=== PATIENT | female | born 1935 | race Caucasian/White ===

== ENCOUNTER 2022-06-29 09:12 | Outpatient (CLI) | payer MEDICARE, BC, SELFPAY ==
[2022-06-29 21:07] LABS: Alanine Aminotransferase 16 U/L (6-35); Albumin Level 4.1 g/dL (3.5-5.1); Alkaline Phosphatase 65 U/L (38-126); Anion Gap 8 mmol/L (8-16); Aspartate Amino Transferase 24 U/L (14-36); Bilirubin,Total 0.6 mg/dL (0.2-1.3); Blood Urea Nitrogen 22 mg/dL (7-17); Calcium 9.8 mg/dL (8.4-10.2); Carbon Dioxide 31 mmol/L (22-30); Chloride 94 mmol/L (98-107); Cholesterol 147 mg/dL (0-200); Estimated Glomerular Filt Rate 53; Glucose 156 mg/dL (65-110); HDL Direct 82 mg/dL; Sodium 133 mmol/L (137-145); Triglycerides 52 mg/dL (<150)
[2022-06-29 21:18] LABS: LDL Cholesterol Direct 49 mg/dL
[2022-06-29 21:50] LABS: Hemoglobin A1C 7.2 % (<5.7)
== END 2022-06-29 09:13 | disposition home or self-care (01) ==
PROVIDERS: PCP Family Medicine; Visit Provider Family Medicine
DX: Z13.220 Encounter for screening for lipoid disorders (principal); E11.9 Type 2 diabetes mellitus without complications; I10 Essential (primary) hypertension
CPT/HCPCS: 36415; 80053; 80061; 83036

== ENCOUNTER → 2023-01-24 11:08 | Outpatient (CLI) | payer MEDICARE, BC, SELFPAY ==
--- NOTE | ~2023-01-24 | XR_ITS ---
Cervical Spine: AP, lateral, open-mouth views Clinical History: Pain Findings: The normal lordotic curve is maintained. No fracture or sublocation seen. There is advanced degenerative disc narrowing at C5-C6 and C6-C7. There is mild to moderate facet arthropathy at C2-C3 . Pre-vertebral soft tissues are unremarkable. Impression: Degenerative change, as detailed above. Reviewed, dictated and finalized at location . Impression: Degenerative change, as detailed above.
--- NOTE | ~2023-01-24 | XR_ITS ---
Thoracic spine: Clinical Indication: Back pain AP and lateral views were performed. No fracture is seen. There is normal alignment of the vertebrae. The intervertebral disc spaces appe ar normal. Paravertebral soft tissues appear normal. Impression: No significant abnormalities noted. Reviewed, dictated and finalized at [facility]. Impression: No significant abnormalities noted.
== END ==
PROVIDERS: PCP Family Medicine; Visit Provider Family Medicine
DX: M54.2 Cervicalgia (principal); M54.9 Dorsalgia, unspecified
CPT/HCPCS: 72050; 72072

== ENCOUNTER 2023-03-08 13:30 | Outpatient (RCR) | payer MEDICARE, BC, SELFPAY ==
--- NOTE | 2023-02-08 14:35 | PTOPEVAL1 ---
Assessment and note entered by Danae Delacruz, PT, DPT Evaluation Information Assessment Status Evaluation Diagnosis neck pain Onset 2 weeks Subjective Information Pt states she thinks she has misused her neck, which is already weak reportedly d/t her age. She states she was moving boxes when her neck started to hurt intensity, she states she went to urgent care and they came her medication that helped with her pain. She states she does not have neck pain now her neck just clicks when she moves it, but this is also decreasing. Reported Pain Level Pain Score 0: Self Report Assessment PT Clinical Summary Jessica presents to therapy today for her initial evaluation with a diagnosis of cervicalgia . Today she demonstrates mild cervical ROM deficits and moderate postural abnormalities. She reports no pain today during her assessment. She was educated in a HEP to encourage cervical mobility and upright posture. She is scheduled to follow up in one month if needed. Plan of Care Interventions Neuro Re-education,Patient/Caregiver Educati, Therapeutic Activities,Therapeutic Exercise Treatment Frequency and follow up in one month if needed Duration These treatments will address the objective and functional deficits as defined above. The patient will be advanced safely and appropriately in order for the patient to progress towards his/her prior level of function. Additional exercises will be introduced and as well as a comprehensive home exercise program upon discharge, if needed, ?to ensure carryover of functional gains achieved in the clinic. This treatment plan has been reviewed and agreement upon by the patient.
--- NOTE | 2023-03-08 13:59 | PTOPDC ---
Assessment and note entered by Danae Delacruz, PT, DPT Evaluation Information Assessment Status Discharge Diagnosis neck pain Onset 2 weeks Subjective Information Pt reports she has not done her exercises at all. She states it feels like her neck is getting better on its own, so why mess with it . Reported Pain Level Pain Score 0: Self Report Assessment PT Clinical Summary Jessica presents to therapy today for her progress report. She states her neck pain has gotten better on its own without needing to complete her exercises. Answered questions regarding posture, mechanics, massage therapy, and exercise. Pt will be discharged at this time as she reports she does not need additional therapy. Plan of Care PT Services Indicated No
== END 2023-03-15 08:31 | disposition home or self-care (01) ==
LOC: ANHGOSHPT 13:30
PROVIDERS: PCP Family Medicine; Visit Provider Family Medicine
DX: M54.2 Cervicalgia (principal)
CPT/HCPCS: 97110; 97161; 97530

== ENCOUNTER 2023-04-25 11:26 | Outpatient (CLI) | payer MEDICARE, BC, SELFPAY ==
[2023-04-25 13:04] LABS: Basophils Absolute Auto 0.1 K/mm3 (0.0-0.1); Basophils Percent Auto 0.7 % (0.2-1.2); Eosinophils Absolute Auto 0.1 K/mm3 (0-0.3); Eosinophils Percent Auto 1.9 % (0-4.4); Hematocrit 41.5 % (37.0-47.0); Hemoglobin 13.4 g/dL (12.0-15.0); Immature Granulocyte Absolute 0.01 K/mm3 (0.00-0.031); Immature Granulocyte Percent A 0.1 % (0-0.5); Lymphocytes Absolute Auto 1.59 K/mm3 (0.9-3.2); Lymphocytes Percent Auto 22.8 % (18.3-44.2); Mean Corpuscular HGB Conc 32.3 g/dl (32-36); Mean Corpuscular Hemoglobin 28.9 pg (26-34); Mean Corpuscular Volume 89.6 fl (80-100); Mean Platelet Volume 10.9 fl (7.4-10.4); Monocytes Absolute Auto 0.8 K/mm3 (0.1-0.6); Neutrophils Absolute Auto 4.4 K/mm3 (1.3-6.7); Neutrophils Percent Auto 63.5 % (45.5-73.1); Platelet Count Result 197 k/mm3 (150-375); Red Blood Count 4.63 M/mm3 (4.2-5.4); Red Cell Distribution Width 13.4 % (11.5-14.5)
[2023-04-25 13:39] LABS: LDL Cholesterol Direct 49 mg/dL
[2023-04-25 13:43] LABS: Alanine Aminotransferase 16 U/L (6-35); Albumin Level 4.1 g/dL (3.5-5.1); Alkaline Phosphatase 71 U/L (38-126); Anion Gap 10 mmol/L (8-16); Aspartate Amino Transferase 25 U/L (14-36); Bilirubin,Total 0.5 mg/dL (0.2-1.3); Blood Urea Nitrogen 23 mg/dL (7-17); Calcium 10.3 mg/dL (8.4-10.2); Carbon Dioxide 32 mmol/L (22-30); Chloride 92 mmol/L (98-107); Cholesterol 156 mg/dL (0-200); Estimated Glomerular Filt Rate 53; Glucose 205 mg/dL (65-110); HDL Direct 77 mg/dL; Potassium 3.5 mmol/L (3.4-5.0); Sodium 134 mmol/L (137-145); Triglycerides 85 mg/dL (<150)
[2023-04-25 15:24] LABS: Hemoglobin A1C 8.5 % (<5.7)
[2023-04-25 15:58] LABS: Creatinine Urine 87.9 mg/dL
[2023-04-25 15:59] LABS: MALB Creatinine Ratio 92.3 mg/g (0-30); Microalbumin Urine Random 81.1 mg/L (0-16.7)
== END 2023-04-25 11:27 | disposition home or self-care (01) ==
LOC: ANHGOSHLAB 11:28
PROVIDERS: PCP Family Medicine; Visit Provider Family Medicine
DX: Z13.29 Encounter for screening for other suspected endocrine disorder (principal); Z13.220 Encounter for screening for lipoid disorders; I10 Essential (primary) hypertension; Z13.228 Encounter for screening for other metabolic disorders; R53.83 Other fatigue; E11.9 Type 2 diabetes mellitus without complications
CPT/HCPCS: 36415; 80053; 80061; 82043; 83036; 84443; 85025

== ENCOUNTER 2023-07-26 10:47 | Outpatient (CLI) | payer MEDICARE, BC, SELFPAY ==
[2023-07-26 12:30] LABS: Hemoglobin A1C 7.8 % (<5.7)
== END 2023-07-26 10:48 | disposition home or self-care (01) ==
PROVIDERS: PCP Family Medicine; Visit Provider Family Medicine
DX: E11.9 Type 2 diabetes mellitus without complications (principal)
CPT/HCPCS: 36415; 83036

== ENCOUNTER 2024-01-12 14:30 | Emergency (ER) | payer MEDICARE, BC, SELFPAY ==
--- NOTE | ~2024-01-12 | CT_ITS ---
EXAMINATION: CT brain wo con DATE: 01/12/2024 15:52 INDICATION: Head injury. Fall. TECHNIQUE: Computed tomography (CT) of the head was performed without intravenous contrast. The mA wa s adjusted according to patient size. Iterative reconstruction technique was employed. The dose-lengt h product was 605.33 mGy-cm. COMPARISON: None FINDINGS: There are scattered areas of low attenuation in the cerebral white matter. There is no intr acranial hemorrhage, acute infarction, or abnormal intracranial mass lesion. The ventricles are l in size. There are likely changes of ocular lens replacement surgeries. There is mild mucosal thick ening in the paranasal sinuses. The mastoid air cells are normal. There is left frontal scalp soft ti ssue tissue swelling. IMPRESSION: 1. Extensive nonspecific cerebral white matter disease, which likely represents chronic small vessel ischemic disease. Reviewed, dictated and finalized at location E.
--- NOTE | ~2024-01-12 | CT_ITS ---
EXAMINATION: CT cervical spine wo con DATE: 01/12/2024 15:52 INDICATION: Head injury. Fall. TECHNIQUE: Computed tomography (CT) of the cervical spine was performed without intravenous contrast. Automated exposure control and iterative reconstruction technique were employed. The dose-length pro duct was 93.99 mGy-cm. COMPARISON: None FINDINGS: There are nodules in the thyroid measuring up to 3.5 cm on the right. There is scarring in right lung upper lobe. There is kyphosis of cervical spine. There is 2 mm retrolisthesis of C5 on C6 and C6 on C7. There is a compression fracture of T3 with 2/5 loss of height and sclerosis of the vert ebral body. The following disc levels are specifically discussed: C2-C3: There is mild right uncovertebral joint osteoarthritis. There is severe right and moderate lef t facet joint osteoarthritis. There is mild right neural foraminal stenosis. There is no central dany l stenosis. C3-C4: There is mild right and severe left uncovertebral joint osteoarthritis. There is mild right an d severe left facet joint osteoarthritis. There is mild left neural foraminal stenosis. There is mild central canal stenosis. C4-C5: There is mild bilateral uncovertebral joint osteoarthritis. There is mild right and severe lef t facet joint osteoarthritis. There is mild left neural foraminal stenosis. There is mild central can al stenosis. C5-C6: There is severe bilateral uncovertebral joint osteoarthritis. There is severe bilateral facet joint osteoarthritis. There is mild bilateral neural foraminal stenosis. There is mild central canal stenosis. C6-C7: There is severe bilateral uncovertebral joint osteoarthritis. There is moderate right and bran re left facet joint osteoarthritis. There is mild bilateral neural foraminal stenosis. There is mild central canal stenosis. C7-T1: There is no uncovertebral joint osteoarthritis. There is moderate right and severe left facet joint osteoarthritis. There is mild left neural foraminal stenosis. There is no central canal stenosi s. IMPRESSION: 1. T3 compression fracture. The sclerosis suggests this finding may be subacute. 2. Severe cervical spondylosis. Reviewed, dictated and finalized at location E. IMPRESSION: 1. T3 compression fracture. The sclerosis suggests this finding may be subacute . 2. Severe cervical spondylosis.
[2024-01-12 14:37] VITALS: BP 153/89; PULSE 80; RESP 20; TEMP 36.8; O2SAT 97
--- NOTE | 2024-01-12 16:03 | ED.FALL ---
HPI - Fall General Chief Complaint: Fall Stated Complaint: fall yesterday, here from urgent care Time Seen by Provider: 01/12/24 14:46 History of Present Illness HPI Narrative: Patient presents here after she [place] because she tripped on a rug, she did land on her face, no loss of consciousness, nausea vomiting. She is feeling fine now without any numbness or tingling or weakness. She did also land on her left hand but she has no pain there. Related Data Home Medications Medication Instructions Recorded Confirmed losartan 100 mg tablet 100 mg PO DAILY 04/19/22 07/26/23 magnesium 200 mg tablet 200 mg PO DAILY 04/19/22 07/26/23 mecobalamin (vitamin B12) 1,000 1,000 mcg PO DAILY 04/19/22 07/26/23 mcg chewable tablet metoprolol succinate 100 mg 100 mg PO DAILY 04/19/22 07/26/23 tablet,extended release 24 hr sertraline 25 mg tablet 25 mg PO DAILY 04/19/22 07/26/23 metformin 500 mg tablet 500 mg PO BID 06/28/22 07/26/23 aspirin 81 mg capsule 81 mg PO DAILY 01/24/23 07/26/23 cyclobenzaprine 5 mg tablet 5 mg PO Q8H PRN 01/24/23 07/26/23 Allergies Allergy/AdvReac Type Severity Reaction Status Date / Time Latex, Natural Rubber Allergy Mild Redness of Verified 01/12/24 14:58 Skin Review of Systems Review of Systems: CONST: No fever. HEENT: No sore throat C/V: No chest pain RESP: No cough GI: No abdominal pain : No dysuria. M/S: No joint pain. SKIN: Tiny cut to base of left thumb, hematoma to forehead NEURO: [No headache or focal numbness or weakness] PSYCH: [No depression] [facility] Past Medical History Medical History Anxiety Breast cancer CAD (coronary artery disease) Coronary stent patent Hypertension Thyroid nodule Type 2 diabetes mellitus without complications Surgical History Surgical History H/O cataract removal with insertion of prosthetic lens History of lumpectomy of left breast History of total mastectomy of right breast Social History Social History Smoking status: Never smoker Alcohol intake: current Substance use: never Substance use type: does not use Lack of Transportation: No Lack of Food: Never True Current Housing: I Have Housing Concerned About Future Housing: No Difficulty Paying Gas/Electric Bills: No Difficulty Paying for Meds: No Currently Unemployed: No Education: Master's Degree or Higher Difficulty w/ Childcare or Family Care: No Occupation/Education: retired Gender identity (if verbalized by the patient): Female Spiritual care concerns: No Exam Narrative: EXAMINATION OF ORGAN SYSTEMS/BODY AREAS: Constitutional: Vital signs per nursing GENERAL:[No acute distress, non-toxic appearing.] HEAD: Normal with no signs of head trauma. EYES: EOMI, conjunctiva normal ENT: Hearing grossly intact LUNGS: Nonlabored breathing. HEART: [Regular rate and rhythm] ABD: [Soft], [nontender to palpation] EXT: Slightly diminished abduction bilateral thumbs, superficial abrasion to base of left thumb, no tenderness whatsoever including to snuffbox, no deformity SKIN: Tiny abrasion to left thumb, hematoma forehead NEURO: [Alert and oriented x 3. No gross focal sensory or strength deficits.] PSYCH: Normal affect Course Vital Signs Vital signs: Vital Signs Temperature 98.2 F 01/12/24 14:37 Pulse Rate 80 01/12/24 14:37 Respiratory Rate 20 01/12/24 14:37 Blood Pressure 153/89 H 01/12/24 14:37 Pulse Oximetry 97 01/12/24 14:37 Oxygen Delivery Room Air 01/12/24 14:37 Temperature 98.2 F 01/12/24 14:37 Pulse Rate 80 01/12/24 14:37 Respiratory Rate 20 01/12/24 14:37 Blood Pressure 153/89 H 01/12/24 14:37 Pulse Oximetry 97 01/12/24 14:37 Oxygen Delivery Room Air 01/12/24 14:37 MDM - Fall MDM Narrative
[2024-01-12] MEDS: TETANUS,DIPHTHERIA,AC PERTUSSIS ADULT (0.5 ML) BOOSTRIX IM (17:24)
== END 2024-01-12 17:32 | disposition home or self-care (01) ==
PROVIDERS: Emergency Provider Emergency Medicine; PCP Family Medicine
DX: S00.83XA Contusion of other part of head, initial encounter (principal); S60.312A Abrasion of left thumb, initial encounter; Z23 Encounter for immunization; I25.10 Atherosclerotic heart disease of native coronary artery without angina pectoris; I10 Essential (primary) hypertension; E11.9 Type 2 diabetes mellitus without complications; F41.9 Anxiety disorder, unspecified; Z95.5 Presence of coronary angioplasty implant and graft; Z85.3 Personal history of malignant neoplasm of breast; Z96.1 Presence of intraocular lens; Z98.49 Cataract extraction status, unspecified eye; Z90.11 Acquired absence of right breast and nipple; Z79.84 Long term (current) use of oral hypoglycemic drugs; Z79.82 Long term (current) use of aspirin; W18.09XA Striking against other object with subsequent fall, initial encounter
CPT/HCPCS: 70450; 72125; 90471; 90715; 99284

== ENCOUNTER 2024-07-13 08:55 | Outpatient (CLI) | payer MEDICARE, BC, SELFPAY ==
[2024-07-13 14:40] LABS: Basophils Absolute Auto 0.1 K/mm3 (0.0-0.1); Basophils Percent Auto 0.7 % (0.2-1.2); Eosinophils Absolute Auto 0.1 K/mm3 (0-0.3); Eosinophils Percent Auto 2.1 % (0-4.4); Hematocrit 44.1 % (37.0-47.0); Hemoglobin 14.4 g/dL (12.0-15.0); Immature Granulocyte Absolute 0.02 K/mm3 (0.00-0.031); Immature Granulocyte Percent A 0.3 % (0-0.5); Lymphocytes Absolute Auto 1.32 K/mm3 (0.9-3.2); Lymphocytes Percent Auto 19.8 % (18.3-44.2); Mean Corpuscular HGB Conc 32.7 g/dl (32-36); Mean Corpuscular Hemoglobin 29.8 pg (26-34); Mean Corpuscular Volume 91.3 fl (80-100); Monocytes Absolute Auto 0.6 K/mm3 (0.1-0.6); Monocytes Percent Auto 8.7 % (2.6-8.5); Neutrophils Absolute Auto 4.6 K/mm3 (1.3-6.7); Neutrophils Percent Auto 68.4 % (45.5-73.1); Platelet Count Result 196 k/mm3 (150-375); Red Blood Count 4.83 M/mm3 (4.2-5.4); Red Cell Distribution Width 13.4 % (11.5-14.5); White Blood Count 6.7 K/mm3 (4.5-10.0)
[2024-07-13 14:41] LABS: Alanine Aminotransferase 13 U/L (6-35); Albumin Level 4.4 g/dL (3.5-5.1); Alkaline Phosphatase 55 U/L (38-126); Anion Gap 8 mmol/L (4-12); Aspartate Amino Transferase 34 U/L (14-36); Blood Urea Nitrogen 17 mg/dL (7-17); Calcium 10.8 mg/dL (8.4-10.2); Carbon Dioxide 35 mmol/L (22-30); Chloride 89 mmol/L (98-107); Cholesterol 173 mg/dL (0-200); Estimated Glomerular Filt Rate 59; Glucose 156 mg/dL (65-110); HDL Direct 96 mg/dL; Potassium 3.6 mmol/L (3.4-5.0); Sodium 132 mmol/L (137-145); Triglycerides 67 mg/dL (<150)
[2024-07-13 14:51] LABS: LDL Cholesterol Direct 47 mg/dL
[2024-07-13 15:15] LABS: Hemoglobin A1C 7.2 % (<5.7)
== END 2024-07-13 08:56 | disposition home or self-care (01) ==
LOC: ANHGOSHLAB 08:57
PROVIDERS: PCP Family Medicine; Visit Provider Family Medicine
DX: I10 Essential (primary) hypertension (principal); E11.9 Type 2 diabetes mellitus without complications; R53.83 Other fatigue; Z13.220 Encounter for screening for lipoid disorders; Z13.228 Encounter for screening for other metabolic disorders
CPT/HCPCS: 36415; 80053; 80061; 83036; 85025

== ENCOUNTER 2024-08-07 08:26 | Outpatient (CLI) | payer MEDICARE, BC, SELFPAY ==
[2024-08-07 15:37] LABS: Parathyroid Intact 72.4 pg/mL (14.5-75.2)
[2024-08-07 15:49] LABS: Alanine Aminotransferase 14 U/L (6-35); Albumin Level 4.3 g/dL (3.5-5.1); Alkaline Phosphatase 62 U/L (38-126); Anion Gap 5 mmol/L (4-12); Aspartate Amino Transferase 23 U/L (14-36); Bilirubin,Total 0.5 mg/dL (0.2-1.3); Blood Urea Nitrogen 18 mg/dL (7-17); Calcium 10.1 mg/dL (8.4-10.2); Carbon Dioxide 34 mmol/L (22-30); Chloride 95 mmol/L (98-107); Estimated Glomerular Filt Rate > 60; Glucose 168 mg/dL (65-110); Potassium 3.7 mmol/L (3.4-5.0); Sodium 134 mmol/L (137-145)
[2024-08-10 13:07] LABS: Ionized Calcium 5.4 mg/dL (4.7-5.5)
== END 2024-08-07 08:27 | disposition home or self-care (01) ==
LOC: ANHGOSHLAB 08:29
PROVIDERS: PCP Family Medicine; Visit Provider Family Medicine
DX: E83.52 Hypercalcemia (principal); Z13.228 Encounter for screening for other metabolic disorders
CPT/HCPCS: 36415; 80053; 82330; 83970

== ENCOUNTER 2025-01-25 08:57 | Outpatient (CLI) | payer MEDICARE, BC, SELFPAY ==
--- OUTSIDE RECORDS SUMMARY | 2025-01-25 09:31 | XMS_ITS | Continuity of Care Document ---
Author Organization [facility] [place] [address] [place] [address] Phone Care Team Providers Care Cleaning Professional Name Role Phone Carlee MITTAL, Alexandru Unavailable Unavailable Allergies, Adverse Reactions, Alerts Substance Reaction Status Criticality poison oak extract Active No Inform ation cigarette smoke Active No Informati on latex Active No Information WINE FLAVOR Resolved No Information Medications Medication Instructions Dosage Effective Dates (start - stop) Status Comments metformin 500 mg tablet take 2 tablet by oral route every day with morning and evening meals 1000 MG - Active Kapspargo Sprinkle 50 mg capsule,extended release take 1 capsule by oral route every day 50 MG - Active losartan 100 mg tablet take 1 tablet by oral route every day 100 MG - Active atorvastatin 20 mg tablet take 1 tablet by oral route every day 20 MG - Active Calcium 500 + D 500 mg (1,250 mg)-200 unit tablet take 1 tablet by oral route every day 1 tablet - Active Vigamox 0.5 % eye drops Instill 1 drop in the operated eye QID x 1 week, and then TID until bottle runs out - No Longer Active ok to substitute Polytrim with same instructions 5ML bottle prednisolone acetate 1 % eye drops,suspension instill 1 drop in the operated eye QID x 1 week, TIDx 1 week, BID x 1 week then Qday x 1 week then stop - No Longer Active ketorolac 0.5 % eye drops instill 1 drop in the operated eye 3 times a day for 4 weeks - No Longer Active Procedures Procedure Date No Charge Refraction Post-op Follow-up Visit Medical Records Request Post-op Follow-up Visit Remove Cataract, Post Op Care 0 Post-op Follow-up Visit Remove Cataract, Insert Lens,Comanaged J IOLMaster-Professional Post-op Follow-up Visit No Charge Refraction Remove Cataract, Post Op Care 9 Remove Cataract, Insert Lens,Comanaged D IOLMaster-Professional No Charge Orbscan IOLMaster-Technical No Charge Refraction Office/outpatient Visit, Est Office/outpatient Visit, Est Revision Of Iris Post-op Follow-up Visit Special Eye Evaluation No Charge Orbscan No Charge GDX Retina No Charge Refraction Fundus Photography W/ Report Revision Of Iris Office/outpatient Visit, New IOLMaster-Technical Advance Directives Directive Yes / No Effective Date File Name No Information Encounters Encounter Description Practice Location Reason(s) For Visit Diagnoses Date Provider Providers Copied on Encounter [facility], [address] [place] [address] [address], [place], [place], [id number], [place] tel:[phone] SEC Braden NICOLE Professional Post-Op (chief complaint) Encounter for examination following surgery [address] [facility], 6th Floor, [place], [address], [place]. tel:[phone] [facility], [address] [place] [address] [address], [place], [place], [id number], [place] tel:[phone] SEC Braden NICOLE Professional No Information 0 Nato Swanson. [address] [facility], [facility] [place], [id number], [place]. tel:[phone] [facility], [address], [place], [place], [id number], [place] tel:[phone] SEC Braden NICOLE Professional Post-Op (chief complaint) Encounter for examination following surgery 0 Carlee OD Alexandru. [address] [facility], [address]th [facility], [place], [address], [place]. tel:[phone] [facility], [address], [place], [place], [id number], [place] tel:[phone] SEC Braden NICOLE Professional 1 day s/p PCIOL (chief complaint) Encounter for examination following surgery 0 Carlee OD Alexandru. [address] [facility], [address]th [facility], [place], [address], [place]. tel:[phone] [facility], [address], [place], [place], [id number], [place] tel:[phone] [facility] No Information 0 Nato Swanson. [address], [place], [place], [address], [place]. tel:[phone] [facility], [address], [place], [place], [address], [place] tel:[phone] SEC Braden NICOLE Professional No Information 0 Nato Swanson. [address], [place], [place], [address], [place]. tel:[phone] [facility], [address], [place], [place], [id number], [place] tel:[phone] SEC rBaden NICOLE Professional No Information 9 Nato Swanson. [address], [place], [place], [address], [place]. tel:[phone] [facility], [address], [place], [place], [address], [place] tel:[phone] SEC Braden NICOLE Professional 2 wk CE PO (09/02/19) (chief complaint) Encounter for examination following surgery Dec-1 [address] Carlee OD [address]ru[address] [facility], [address]th [facility], [place], [address], [place]. tel:[phone] [facility], [address], [place], [place], [address], [place] tel:[phone] SEC Braden NICOLE Professional 1 day CE PO (09/02/19) (chief complaint) Encounter for examination following surgery Dec-0 [address] Carlee OD [address] [facility], [address] [facility], [place], [address], [place]. tel:[phone] [facility], [address] [place] [address] [address], [place], [place], [address], [place] tel:[phone] [facility] [place] No Information Dec-0 9 Nato Swanson. [address] [facility], [facility], [place], [place], [address], [place]. tel:[phone] [facility], [address], [place], [place], [address], [place] tel:[phone] SEC Braden NICOLE Professional No Information Dec-0 3 9 Nato Swanson. [address] [facility], [address], [place], [place], [address], [place]. tel:[phone] Office/outpa tient Visit, Est [facility], [address], [place], [place], [address], [place] tel:[phone] SEC Braden NICOLE Professional Cataract Evaluation (chief complaint) Age-related nuclear cataract, right eyeCombined forms of age-related cataract, left eyeRPE mottling of maculaStatus post laser iridotomyPing uecula, left eye Nov-1 8-201 9 Nato Swanson. [address], [place], [place], [address], [place]. tel:[phone] [place]pa [place], [facility] [place] [address], [place], [place], [address], [place] [phone] SEC Braden NICOLE Professional Post-Op (chief complaint) Anatomical narrow angle, left eyeAnatomical narrow angle, right eyeAge-relate d nuclear cataract, bilateral 9 Nato Swanson. [address], [address], [place], [place], [address], [place]. tel:[phone] [facility], [address], [place], [place], [id number], [place] [phone] SEC Braden NICOLE Professional Follow up visit (chief complaint) Anatomical narrow angle, left eyeEncounter for examination following surgery Dec- Nato Swanson. [address], [address], [place], [place], [address], [place]. tel:[phone] Office/outpa tient Visit, [facility], [address], [place], [place], [address], [place] [phone] SEC Braden NICOLE Professional Cataract evaluation (chief complaint) Endothelial corneal dystrophyAge- related nuclear cataract, bilateralAnat omical narrow angle, right eyeAnatomical narrow angle, left eye Dec- 9 Nato Swanson. [address], [place], [place], [address], [place]. tel:[phone] Specialist : Jerrell Zarco MD, [address] [place], [address]. tel:[phone] Family History Family Member Type Diagnosis Age At Onset Mother Problem (finding) Diabetes mellitus Payers Payer name Insurance type Covered republican ID Authoriza tion(s) No Information Social History Type Description Quantity Date Captured Comments Alcohol Use Details Unknown Caffeine Use Details Unknown Tobacco Use Status Current non-smoker 20 Smoking Status Never smoker Non-Smoking Tobacco Use Details : No Details Available : No Details Available Sex Female Chief Complaint And Reason For Visit From encounter dated '11/04/2019 11:30'. Post-Op (chief complaint). Description: The 83 year old female presents for a 1 month post op CE OD. Patient is pseudo ou. Patient finished drops yesterday. Patient states OD is doing good. Patient will go back to Dr. Oliver for glasses. Reason For Referral Reason For Referral No Information Plan Of Treatment Date Type Action Status Patient Education Cataracts: Care Instruc ticat completed Patient Education Learning About Your Eye s completed Patient Education Cataracts: Care Instruc ticat completed History Of Present Illness Encounter Date Complaint History Of Prese nt Illness Post-Op The 83 year old female presents for a 1 month post op CE OD. Patient is pseudo ou. Patient finished drops yesterday. Patient states OD is doing good. Patient will go back to Dr. Oliver for glasses. Post-Op The 83 year old female presents for a 1 week post op CE OD. Patient is using Pred, Vigamox and Ketorolac tid OD. Patient states OD is doing good. 1 day s/p PCIOL The 83 year old female presents for evaluation of 1 day s/p PCIOL in the right eye. Patient states VA seems good. Patient instructed to use Pred, Ket, and Vig the same as she did for the left eye as well as use of eye shield. 2 wk CE PO (09/02/19) The 83 year old female presents for evaluation of 2 wk CE PO (09/02/19) in the left eye. Pt reports she is using Vigamox TID OS, Pred BID OS and Ketorolac TID OS. Pt reports she can't tell that she can see any better since CE, OS. Pt reports she would like to proceed with CE, OD, because she has trouble driving at night due to glare from headlights, x several mos. 1 day CE PO (09/02/19) The 83 yea r old female presents for evaluation of 1 day CE PO (09/02/19) in the left eye. Pt reports she is using Vigamox QID OS, Pred QID OS, and Ketorolac TID OS. PO instructions were given, explained and understood by pt. Pt reports no pain or irritation, today. Cataract Evaluation The 83 year old female presents for evaluation of Cataract Evaluation in the right eye and left eye. Hx Narrow Angles OU s/p LPI OU, Cataract OU. DM2, last A1c 7.1, last tested 06/18, followed by Dr Clancy. Pt reports trouble while driving at night. Pt does not drive much at night. Pt reports trouble seeing small print on [employer] boxes x many years. Pt is worried about having surgery in [facility]. Post-Op The 83 year old female presents for a 2 week post op YAG PI OS. Patient states this am she felt a little pressure in OS. Patient states her Daughter is a Dr and would like to speak with Dr. Dutton. Follow up visit The 83 year old female presents for evaluation of Follow up visit after Yag PI OD. Patient is also here for Yag PI OS. Cataract evaluation The 83 year old female presents for evaluation of Cataract evaluation in the right eye and left eye. Hx of Cataracts OU. Patient states when she sleeps she feels her eyes watering. Patient states she has more difficulty seeing at night due to glare in both eyes seems to have gotten worse over the last couple of months. Patient states she has to get closer to road signs to see the words on the sign. Patient is a Type 2 diab x 10 years, doesn't know BS, a1c 7.6, and Dr. Zarco treats her diab. Functional Status Date Functional Assessmen t No Information Instructions Date Instruction Additional Infor fina PRN Related to Encou nter for examination following surgery Impression/Plan Related to Encou nter for examination following surgery Impression/Plan 1wk or sooner prn Related to Enc ounter for examination following surgery Impression/Plan Related to Encou nter for examination following surgery 2wk for ce/pciol OD or sooner pr n Related to Encounter for examination following surgery Impression/Plan Related to Encou nter for examination following surgery 2wk or sooner prn Related to Enc ounter for examination following surgery Impression/Plan Related to Encou nter for examination following surgery Impression/Plan Impression/Plan Impression/Plan Impression/Plan Assessments Type Assessment Date assessment Encounter for examination follow ing surgery impression Encounter for examination follow ing surgery: Z09 Patient Care Teams Name Effective Dates (start - stop) Status Members No Information
--- OUTSIDE RECORDS SUMMARY | 2025-01-25 09:32 | XMS_ITS | Encounter Summary ---
Author Organization [facility] Care Team Providers Care Dial Printer Name Role Phone Keyshawn Clancy MD Primary Care Provider + [phone] Clare Núñez MD Unavailable [phone] Ranjit Pemberton MD Unavailable [phone] Emre Paz MD Unavailable [phone] Brayden Zarco MD Unavailable [phone] Madhu De Leon DO Primary Care Provider [phone] Encounter Details Date Type Department Care Team (Latest Contact Info) Description 01/23/2016 Orders Only [facility] CLINCONV Provider, MD Sandy [address] [place] [address] Social History Tobacco Use Types Packs/Day Years Used Date Smoking Tobacco: Never Assessed Comments Unknown Sex and Gender Information Value Date Recorded Sex Assigned at Not on file Legal Sex Female 9:06 PM ORDER CHECKER Gender Identity Not on file Sexual Orientation Not on file documented as of this encounter Plan of Treatment Not on file documented as of this encounter Procedures Procedure Name Priority Date/Time Associated Diagnosis Comments SCAN - LABS 02/01/2016 12:00 AM CDT documented in this encounter Results * SCAN - LABS (02/01/2016 12:00 AM CDT) Narrative 02/01/2016 12:00 AM CDT Ordered by an unspecified provider. Historical Provider Final Res ult documented in this encounter Visit Diagnoses Not on filedocumented in this encounter Care Teams Dial Printer Relationship Specialty Start Date End Date Keyshawn Clancy MD [address] [place] [address] PCP - General 12/31/16 11/04/22 Madhu De Leon DO [address] [facility] [address] [place] [address] [address] PCP - General Family Medicine 11/05/22 Clare Núñez MD [address] [place] [address] Consulting Physician Radiation Oncology 06/16/18 Ranjit Pemberton MD [address] DE[place] [address] Otolaryngology 12/29/18 Emre Paz MD [address] [facility] [address] [place] [address] [address] Heavy Equipment Sales Manager Cardiology 10/28/20 09/02/23 Brayden Zarco MD [address] [facility] [address] [place] [address] [address] Consulting Physician Hematology and Oncology 07/03/21 documented as of this encounter
--- OUTSIDE RECORDS SUMMARY | 2025-01-25 09:32 | XMS_ITS | Encounter Summary ---
Author Organization [facility] Care Team Providers Care It Security Engineer Name Role Phone Keyshawn Clancy MD Primary Care Provider + [phone] Clare Núñez MD Unavailable [phone] Ranjit Pemberton MD Unavailable [phone] Emre Paz MD Unavailable [phone] Brayden Zarco MD Unavailable [phone] Madhu De Leon DO Primary Care Provider [phone] Encounter Details Date Type Department Care Team (Latest Contact Info) Description 07/12/2016 Orders Only [facility] CLINCONV Provider, MD Sandy [address] [place] [address] Social History Tobacco Use Types Packs/Day Years Used Date Smoking Tobacco: Never Assessed Comments Unknown Sex and Gender Information Value Date Recorded Sex Assigned at Not on file Legal Sex Female 9:06 PM BROKERAGE COORDINATOR Gender Identity Not on file Sexual Orientation Not on file documented as of this encounter Plan of Treatment Not on file documented as of this encounter Procedures Procedure Name Priority Date/Time Associated Diagnosis Comments SCAN - LABS 07/12/2016 12:00 AM CDT documented in this encounter Results * SCAN - LABS (07/12/2016 12:00 AM CDT) Narrative 07/12/2016 12:00 AM CDT Ordered by an unspecified provider. Historical Provider Final Res ult documented in this encounter Visit Diagnoses Not on filedocumented in this encounter Care Teams It Security Engineer Relationship Specialty Start Date End Date Keyshawn Clancy MD [address] [place] [address] PCP - General 12/31/16 11/04/22 Madhu De Leon DO [address] [facility] [address] [place] [address] [address] PCP - General Family Medicine 11/05/22 Clare Núñez MD [address] [place] [address] Consulting Physician Radiation Oncology 06/16/18 Ranjit Pemberton MD [address] [place] [address] Otolaryngology 12/29/18 Emre Paz MD [address] [facility] [address] [place] [address] [address] Outsole Paraffiner Cardiology 10/28/20 09/02/23 Brayden Zarco MD [address] [facility] [address] [place] [address] [address] Consulting Physician Hematology and Oncology 07/03/21 documented as of this encounter
--- OUTSIDE RECORDS SUMMARY | 2025-01-25 09:32 | XMS_ITS | Encounter Summary ---
Author Organization [facility] Care Team Providers Care Quantometer Operator Name Role Phone Keyshawn Clancy MD Primary Care Provider + [phone] Clare Núñez MD Unavailable [phone] Ranjit Pemberton MD Unavailable [phone] Emre Paz MD Unavailable [phone] Brayden Zarco MD Unavailable [phone] Madhu De Leon DO Primary Care Provider [phone] Encounter Details Date Type Department Care Team (Latest Contact Info) Description 03/07/2018 Orders Only [facility] CLINCONV Provider, MD Sandy [address] [place] [address] Social History Tobacco Use Types Packs/Day Years Used Date Smoking Tobacco: Never Smokeless Tobacco: Never Comments Unknown Sex and Gender Information Value Date Recorded Sex Assigned at Not on file Legal Sex Female 9:06 PM SLEEVER Gender Identity Not on file Sexual Orientation Not on file documented as of this encounter Plan of Treatment Not on file documented as of this encounter Procedures Procedure Name Priority Date/Time Associated Diagnosis Comments SCAN - LABS 03/28/2018 12:00 AM CDT documented in this encounter Results * SCAN - LABS (03/28/2018 12:00 AM CDT) Narrative 03/28/2018 12:00 AM CDT Ordered by an unspecified provider. Historical Provider Final Res ult documented in this encounter Visit Diagnoses Not on filedocumented in this encounter Care Teams Quantometer Operator Relationship Specialty Start Date End Date Keyshawn Clancy MD [address] [place] [address] PCP - General 12/31/16 11/04/22 Madhu De Leon DO [address] [facility] [address] [place] [address] [address] PCP - General Family Medicine 11/05/22 Clare Núñez MD [address] [place] [address] Consulting Physician Radiation Oncology 06/16/18 Ranjit Pemberton MD [address] [place] [address] Otolaryngology 12/29/18 Emre Paz MD [address] [facility] [address] [place] [address] [address] German Teacher Cardiology 10/28/20 09/02/23 Brayden Zarco MD [address] [facility] [address] [place] [address] [address] Consulting Physician Hematology and Oncology 07/03/21 documented as of this encounter
--- OUTSIDE RECORDS SUMMARY | 2025-01-25 09:32 | XMS_ITS | Encounter Summary ---
Author Organization [facility] Care Team Providers Care Cloth Examiner Hand Name Role Phone Keyshawn Clancy MD Primary Care Provider + [phone] Clare Núñez MD Unavailable [phone] Ranjit Pemberton MD Unavailable [phone] Emre Paz MD Unavailable [phone] Brayden Zarco MD Unavailable [phone] Madhu De Leon DO Primary Care Provider [phone] Encounter Details Date Type Department Care Team (Latest Contact Info) Description 05/17/2016 Orders Only [facility] CLINCONV Provider, MD Sandy [address] [place] [address] Social History Tobacco Use Types Packs/Day Years Used Date Smoking Tobacco: Never Assessed Comments Unknown Sex and Gender Information Value Date Recorded Sex Assigned at Not on file Legal Sex Female 9:06 PM PRODUCTION CELL LEADER Gender Identity Not on file Sexual Orientation Not on file documented as of this encounter Plan of Treatment Not on file documented as of this encounter Procedures Procedure Name Priority Date/Time Associated Diagnosis Comments SCAN - LABS 05/17/2016 12:00 AM CDT documented in this encounter Results * SCAN - LABS (05/17/2016 12:00 AM CDT) Narrative 05/17/2016 12:00 AM CDT Ordered by an unspecified provider. Historical Provider Final Res ult documented in this encounter Visit Diagnoses Not on filedocumented in this encounter Care Teams Cloth Examiner Hand Relationship Specialty Start Date End Date Keyshawn Clancy MD [address] [place] [address] PCP - General 12/31/16 11/04/22 Madhu De Leon DO [address] [facility] [address] [place] [address] [address] PCP - General Family Medicine 11/05/22 Clare Núñez MD [address] [place] [address] Consulting Physician Radiation Oncology 06/16/18 Ranjit Pemberton MD [address] [place] [address] Otolaryngology 12/29/18 mEre Paz MD [address] [facility] [address] [place] [address] [address] Plate Grinder Cardiology 10/28/20 09/02/23 Brayden Zarco MD [address] [facility] [address] [place] [address] [address] Consulting Physician Hematology and Oncology 07/03/21 documented as of this encounter
--- OUTSIDE RECORDS SUMMARY | 2025-01-25 09:32 | XMS_ITS | Referral Summary ---
Author Organization [facility] Address [address] [place] [address] Care Team Providers Care Benefits Processor Name Role Phone Clare Núñez MD Unavailable [phone] Ranjit Pemberton MD Unavailable [phone] Brayden Zarco MD Unavailable [phone] Madhu De Leon DO Primary Care Provider [phone] Encounters Date Type Department Care Team Description 11/27/2024 11:00 AM PARTS ADMINISTRATOR Office Visit [facility] Medical [facility] Cardiology [address] [facility] [address] [address] Emre Paz MD 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 (Primary Dx); Mixed hyperlipidemia; Essential hypertension, benign 11/24/2024 Results Follow-Up [facility] Cardiology [address] [facility] [address] [place] [address] Raji Terry RN 11/20/2024 10:40 AM PARTS ADMINISTRATOR Lab [facility] [address] [place] [address] 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; Essential hypertension, benign; Mixed hyperlipidemia; Hypercalcemia from Last 3 Months Allergies Active Allergy Reactions Criticality Noted Date Comments Selvin Inhibitors Unknown 03/17/2013 Latex Blisters High 06/18/2017 Penicillin G Rash Medium 06/18/2017 Medications metFORMIN (GLUCOPHAGE) 500 mg tablet Take 1 tablet (500 mg total) by mouth daily with breakfast 7 Active aspirin 81 mg enteric coated tablet 1 tablet (81 mg total) daily Active calcium carbonate-vitam in D3 (CALTRATE 600 + D) 1500 mg (600 mg elemental) -400 units per tablet Take by mouth daily Active atorvastatin (LIPITOR) 20 mg tablet Take 1 tablet (20 mg total) by mouth nightly 90 tablet 2 1 Active cyanocobalamin, vitamin B-12, (VITAMIN B-12 ORAL) Take by mouth Active hydroCHLOROthia zide (HYDRODIURIL) 25 mg tablet Take 1 tablet (25 mg total) by mouth daily 2 Active metoprolol XL (TOPROL-XL) 100 mg 24 hr tablet TAKE 1 TABLET BY MOUTH EVERY DAY 90 tablet 2 4 Active losartan (COZAAR) 100 mg tablet TAKE 1 TABLET BY MOUTH EVERY DAY 90 tablet 1 5 Active Active Problems Problem Noted Date Diagnosed Date Essential hypertension, benign 11/10/2021 Assessment & Plan (11/06/2022 10:57 AM PARTS ADMINISTRATOR): Blood pressure is well controlled. Continue current medications. Continue low- salt diet. Continue hydrochlorothiazide and losartan. Add Chem 7 to the yesterday's labs as she is on hydrochlorothiazide Abnormal chest x-ray 11/10/2021 Mixed hyperlipidemia 08/15/2021 Assessment & Plan (11/06/2022 10:56 AM PARTS ADMINISTRATOR): Recent lipid panel looks good along with LFTs. I reviewed with her. I will repeat her Chem 12 and lipids prior to next appointment. Continue heart healthy diet and also atorvastatin. Shortness of breath 08/15/2021 Coronary artery disease invo lving salt river coronary artery of salt river heart without angina pectoris 05/05/2021 Assessment & Plan (11/06/2022 10:55 AM PARTS ADMINISTRATOR): Clinically she has no angina. Continue aspirin. Encouraged her to be active as much as she can and contact me if he has any symptoms. 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 Wound care reviewed with patient. Follow-up per path. 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, estrogen receptor positive 06/13/2018 Atypical chest pain 04/08/2018 Overview (05/02/2021): Sharp electrical shock pain lasted seconds but resolved Anemia, iron deficiency 01/09/2017 History of colonic polyps 01/09/2017 Skin lesion 05/17/2016 Myocardial infarction of inferior wall 6 Type 2 diabetes mellitus 06/03/2015 Overview (05/02/2021): Description: 08/2001 Back strain 02/25/2014 Carotid artery stenosis 02/25/2014 Benign neoplasm of large intestine 03/17/2013 Hematuria 03/17/2013 Osteopenia 03/17/2013 Resolved Problems Problem Noted Date Diagnosed Date Resolved Date Essential hypertension 04/15/201911/10 History of coronary artery stent placement 08/01/2016 11/06/2022 Overview (04/14/2019): Patient had a coronary stent placement in the right coronary artery in March 2015. In January 2017 cardiac Tracey scan Myoview is negative for ischemia. Dyslipidemia 01/30/2016 08/15/2021 Atherosclerosis of coronary artery 05/04/2015 05/05/2021 Immunizations Immunization Administration Dates Next Due Influenza, Quadrivalent, Hig h Dose, Preservative Free, Intrr 06/28/2022 Influenza, Quadrivalent, Rec ombinant, Egg Free, Preservative Free, Intramuscular 05/26/2020 Influenza, Quadrivalent, Spl it, Preservative Free, Intramuscular 07/14/2019 Influenza, Split 06/23/2012,07/06/2011 Influenza, Trivalent, High D ose, Split, Preservative Free, Intramuscular 07/04/2018,07/16/2017,06/22/2016 Influenza, Trivalent, IM (MDV) 07/04/2015,2013,07/08/2013 Influenza, Unspecified 06/24/2024,06/26/2021,09/2017 Advanced ICU Care (J&J) SARS-CoV-2 Vaccination 12/02/2020 Pneumococcal Conjugate 7-Valent 10/26/2014 Pneumococcal Polysaccharide PPV23 08/19/2003, TD Preservative Free 09/06/2008 ZOSTER LIVE 01/09/2017,01/15/2007 Social History Tobacco Use Types Packs/Day Years Used Date Smoking Tobacco: Never Smokeless Tobacco: Never Alcohol Use Standard Drinks/Week Comments Never 0 (1 standard drink = 0.6 oz pur e alcohol) AUDIT-C Answer Date Recorded Frequency of Alcohol Consumption Never 12/29/2018 Average Number of Drinks Not on file 019 Frequency of Binge Drinking Not on file 09/2018 Comments No Sex and Gender Information Value Date Recorded Sex Assigned at Not on file Legal Sex Female 9:06 PM PARTS ADMINISTRATOR Gender Identity Not on file Sexual Orientation Not on file Last Filed Vital Signs Vital Sign Reading Time Taken Comments Blood Pressure 110/60 11/27/2024 10:50 AM PARTS ADMINISTRATOR Pulse 71 11/27/2024 10:50 AM PARTS ADMINISTRATOR Temperature 36.3 C (97.3 F) 07/01/2024 10:19 AM CDT Respiratory Rate 20 07/01/2024 10:19 AM CDT Oxygen Saturation 98% 11/27/2024 10:50 AM PARTS ADMINISTRATOR Inhaled Oxygen Concentration - - Weight 44.5 kg (98 lb) 11/27/2024 10:50 AM PARTS ADMINISTRATOR Height 154.9 cm (5' 1 ) 11/27/2024 10:50 AM PARTS ADMINISTRATOR Body Mass Index 18.52 11/27/2024 10:50 AM PARTS ADMINISTRATOR Plan of Treatment Not on file Procedures Procedure Name Priority Date/Time Associated Diagnosis Comments EGFR Routine 11/20/2024 10:44 AM PARTS ADMINISTRATOR 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 Essential hypertension, benign Mixed hyperlipidemia Hypercalcemia LIPID PANEL Routine 11/20/2024 10:44 AM PARTS ADMINISTRATOR 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 Essential hypertension, benign Mixed hyperlipidemia Hypercalcemia COMPREHENSIVE METABOLIC PANEL Routine 11/20/2024 10:44 AM PARTS ADMINISTRATOR 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 73 m2 Comment: Interpretive Data Reference Interval Normal >/= 90 mL/min/1.73m2 Mildly decreased* 60 - 89 mL/min/1.73m2 Mildly to moderately decreased 45 - 59 mL/min/1.73m2 Moderately to severely decreased 30 - 44 mL/min/1.73m2 Severely decreased 15 - 29 mL/min/1.73m2 Kidney Failure < 15 mL/min/1.73m2 *Relative to young adult level Estimated glomerular filtration rate is determined by the 2020 CKD-EPI equation recommended by the National Kidney Foundation (A Unifying Approach to GFR Estimation: Recommendations of the NKF-ASK Task Force on Reassessing the Inclusion of Race in Diagnosing Kidney Disease, JASN 2020). The CKD-EPI equation should not be used for patients with unstable renal function and has not been validated in children and those over 70. Current interpretive data was last reviewed 2021. Blood 11/20/2024 10:4 4 AM PARTS ADMINISTRATOR 11/20/2024 10:57 AM PARTS ADMINISTRATOR us Emre Paz MD LAB BLOOD ORDERABLES Final Result [facility] [address] [facility] Department [place] [address] * Lipid panel (11/20/2024 10:44 AM PARTS ADMINISTRATOR) Cholesterol 178 30 - 199 mg/dL Comment: Interpretive Data Ages < or = 19 years Acceptable: <170 mg/dL Borderline high: 170-199 mg/dL High: >or= 200 mg/dL Ages > or = 20 years Desirable: <200 mg/dL Borderline high: 200-239 mg/dL High: >or= 240 mg/dL Literature References: 1. Expert Panel on Integrated Guidelines for Cardiovascular Health and Risk Reduction in Children and Adolescents. Pediatrics 2011;128:S213 2. NCEP Expert Panel. Circulation 2004;110:227 Current Interpretive Data was last revised on 2018. Triglycerides 60 <=149 mg/dL [facility] Comment: Interpretive Data Ages < or = 9 years Acceptable: <75 mg/dL Borderline high: 75-99 mg/dL High: >or= 100 mg/dL Ages 10 to 20 years Acceptable: <90 mg/dL Borderline high: 90-129 mg/dL High: >or= 130 mg/dL Ages > or = 20 years Desirable: <150 mg/dL Borderline high: 150-199 mg/dL High: 200-499 mg/dL Very high: >or= 499 mg/dL Literature References: 1. Expert Panel on Integrated Guidelines for Cardiovascular Health and Risk Reduction in Children and Adolescents. Pediatrics 2011;128:S213 2. NCEP Expert Panel. Circulation 2004;110:227 Current Interpretive Data was last revised on 2018. HDL 99 >=40 mg/dL [facility] Comment: Interpretive Data Ages < or = 19 years Acceptable: >45 mg/dL Borderline low: 40-45 mg/dL Low: <40 mg/dL Ages > or = 20 years Desirable: >or= 60 mg/dL Low: <40 mg/dL Literature References: 1. Expert Panel on Integrated Guidelines for Cardiovascular Health and Risk Reduction in Children and Adolescents. Pediatrics 2011;128:S213 2. NCEP Expert Panel. Circulation 2004;110:227 Current Interpretive Data was last revised on 2018. LDL, calculated 67 <=129 mg/dL [facility] Comment: Interpretive Data Ages < or = 19 years Acceptable: <110 mg/dL Borderline high: 110-129 mg/dL High: >or= 130 mg/dL Ages > or = 20 years Optimal: <100 mg/dL Near optimal: 100-129 mg/dL Borderline high: 130-159 mg/dL High: >160 mg/dL Calculated using the Jimmie LDL-C estimating equation. This equation was implemented on 2024. Prior to this date LDL-C was estimated using the Friedewald equation. Literature References: 1. Expert Panel on Integrated Guidelines for Cardiovascular Health and Risk Reduction in Children and Adolescents. Pediatrics 2011;128:S213 2. NCEP Expert Panel. Circulation 2004;110:227 3. Jimmie Andrade et al. JULIAN Cardiol. 2020 January 28;5(5):540-548. doi: 10.1001/jamacardio.2020.0013 Current Interpretive Data was last revised on 2024. Non-HDL Cholesterol 79 mg/dL [facility] Comment: Interpretive Data Ages < or = 19 years Acceptable: <120 mg/dL Borderline high: 120-144 mg/dL High: >145 mg/dL Ages > or = 20 years When triglycerides are >200 mg/dL, Non-HDL cholesterol is a secondary target of therapy with treatment goals that are 30 mg/dL greater than the LDL cholesterol target. Literature References: 1. Expert Panel on Integrated Guidelines for Cardiovascular Health and Risk Reduction in Children and Adolescents. Pediatrics 2011;128:S213 2. NCEP Expert Panel. Circulation 2004;110:227 Current Interpretive Data was last revised on 2018. Chol/HDL ratio 2 [facility] Blood 11/20/2024 10:4 4 AM PARTS ADMINISTRATOR 11/20/2024 10:57 AM PARTS ADMINISTRATOR us Emre Paz MD LAB BLOOD ORDERABLES Final Result [facility] [address] [facility] Department of Laboratories [place], [place] [id number] * (ABNORMAL) Comprehensive metabolic panel (11/20/2024 10:44 AM PARTS ADMINISTRATOR) Sodium 133(L) 135 - 145 mmol/L Potassium, pl 4.1 3.3 - 4.9 mmol/L [facility] Chloride 91(L) 97 - 110 mmol/L [facility] CO2 29 22 - 32 mmol/L [facility] Anion gap 13 2 - 15 mmol/L [facility] BUN 22 6 - 25 mg/dL [facility] Creatinine 1.07 0.60 - 1.10 mg/dL [facility] Glucose 184 70 - 199 mg/dL [facility] Comment: Interpretive Data Fasting glucose >/= 126 mg/dl is diagnostic for diabetes. Fasting is defined as no caloric intake for at least 8 hours. Fasting glucose between 100 mg/dl to 125 mg/dl is diagnostic of prediabetes. In a patient with classic symptoms of hyperglycemia or hyperglycemic crisis, a random glucose >/= 200 mg/dl is diagnostic for diabetes. In the absence of unequivocal hyperglycemia, results should be confirmed by repeat testing. The classification and Diagnosis of Diabetes Diabetes Care 2021; 46: S19-S40. Current interpretive data was last revised 2022. Calcium 10.4(H) 8.5 - 10.3 mg/dL [facility] Bilirubin, total 0.4 0.1 - 1.2 mg/dL [facility] Protein, pl 7.4 6.5 - 8.5 g/dL [facility] Albumin 4.2 3.5 - 5.0 g/dL [facility] Alk phos 182(H) 40 - 130 Units/L [facility] ALT 10 7 - 45 Units/L [facility] AST 17 10 - 45 Units/L [facility] Blood 11/20/2024 10:4 4 AM PARTS ADMINISTRATOR 11/20/2024 10:57 AM PARTS ADMINISTRATOR us Emre Paz MD LAB BLOOD ORDERABLES Final Result [facility] [address] [facility] Department [place] [address] * (ABNORMAL) Hemoglobin A1c (05/15/2022 2:05 PM CDT) Hgb A1C 7.6(H) 4.0 - 5.6 % [facility] ([place]) Estimated Average Glucose 171 mg/dL [facility] ([place] Comment: The ADA recommends reporting an estimated Average Glucose (eAG) with all Hemoglobin A1c results using the equation derived from a study of 507 normal and diabetic adults. Minority populations were underrepresented and children were not included. (Diabetes Care 31:5133-4769, 2008). The eAG is not equivalent to a fasting glucose. Blood 05/15/2022 2:05 PM CDT 05/15/2022 2:51 PM CDT Brayden Zarco MD LAB BLOOD ORDERABLES Final Re sult [facility] ([place]) [address] [facility] [place] [address] from Last 3 Months or Most Recently Relevant to Health Maintenance Insurance MEDICARE [facility] MEDICARE [facility] FEDERAL MEDICARE MEDICARE BCBS FEDERAL Care Teams Benefits Processor Relationship Specialty Start Date End Date Madhu De Leon DO [address] [place] [address] PCP - General Family Medicine 11/05/22 Clare Núñez MD Consulting Physician Radiation Oncology 06/16/18 Ranjit Pemberton MD [address] [place] [address] Otolaryngology 12/29/18 Brayden Zarco MD [address] [place] [address] Consulting Physician Hematology and Oncology 07/03/21
--- OUTSIDE RECORDS SUMMARY | 2025-01-25 09:32 | XMS_ITS | Encounter Summary ---
Author Organization [facility] Healthcare Address [address] [place] [address] Care Team Providers Care Buyer Assistant Name Role Phone Clare Núñez MD Unavailable [phone] Ranjit Pemberton MD Unavailable [phone] Brayden Zarco MD Unavailable [phone] Madhu De Leon DO Primary Care Provider [phone] Encounter Details Date Type Department Care Team (Late st Contact Info) Description 11/24/2024 Results Follow-Up [facility] Cardiology 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 Gender Identity Not on file Sexual Orientation Not on file documented as of this encounter Plan of Treatment Not on file documented as of this encounter Visit Diagnoses Not on filedocumented in this encounter Care Teams Buyer Assistant Relationship Specialty Start Date End Date Madhu De Leon DO [address] [place] [address] PCP - General Family Medicine 11/05/22 Clare Núñez MD Consulting Physician Radiation Oncology 06/16/18 Ranjit Pemberton MD [address] [place] [address] Otolaryngology 12/29/18 Brayden Zarco MD [address] [place] [address] Consulting Physician Hematology and Oncology 07/03/21 documented as of this encounter
--- OUTSIDE RECORDS SUMMARY | 2025-01-25 09:32 | XMS_ITS | Encounter Summary ---
Author Organization [facility] Facility Care Team Providers Care Plan Consultant Name Role Phone Keyshawn Clancy MD Primary Care Provider + [phone] Clare Núñez MD Unavailable [phone] Ranjit Pemberton MD Unavailable [phone] Emer Paz MD Unavailable [phone] Brayden Zarco MD Unavailable [phone] Madhu De Leon DO Primary Care Provider [phone] Encounter Details Date Type Department Care Team (Latest Contact Info) Description 04/12/2015 Orders Only [facility] CLINCONV Provider, MD Sandy [address] [place] [address] Social History Tobacco Use Types Packs/Day Years Used Date Smoking Tobacco: Never Assessed Comments Unknown Sex and Gender Information Value Date Recorded Sex Assigned at Not on file 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 Gender Identity Not on file Sexual Orientation [...] on filedocumented in this encounter Care Teams Plan Consultant Relationship Specialty Start Date End Date Keyshawn Clancy MD [address] [place] [address] PCP - General 12/31/16 11/04/22 Madhu De Leon DO [address] [facility] [address] [place] [address] [address] PCP - General Family Medicine 11/05/22 Clare Núñez MD [address] [place] [address] Consulting Physician Radiation Oncology 06/16/18 Ranjit Pemberton MD [address] [place] [address] Otolaryngology 12/29/18 Emre Paz MD [address] [facility] [address] [place] [address] [address] Paste Mixer Liquid Cardiology 10/28/20 09/02/23 Brayden Zarco MD [address] [facility] [address] [place] [address] [address] Consulting Physician Hematology and Oncology 07/03/21 documented as of this encounter
--- OUTSIDE RECORDS SUMMARY | 2025-01-25 09:32 | XMS_ITS | Clinical Summary ---
Author Organization [facility] Address [address] [place] [address] Care Team Providers Care Welfare Manager Name Role Phone Keyshawn Clancy MD Primary Care Provider [phone] Allergies Active Allergy Reactions Criticality Noted Date Comments Selvin Inhibitors Unknown 03/17/2013 Latex Unknown 10/22/2013 Penicillins Unknown 03/17/2013 Medications calcium carbonate-vitam in D (CALCIUM 600-D) 600-400 MG-UNIT tablet Take by mouth daily. Active hydrochlorothia zide 25 MG tablet Take 25 mg by mouth every morning. 3 9 Active losartan 100 MG tablet Take 100 mg by mouth daily. 2 9 Active Multiple Vitamins-Minera ls (CENTRUM SILVER) Tab Take 1 tablet by mouth daily. Active aspirin 81 MG chewable tablet Chew 81 mg by mouth daily. Active metoprolol succinate ER 100 MG 24 hr tablet Take 100 mg by mouth daily. 1 Active metFORMIN 500 MG tabletIndicatio ns:Type 2 diabetes mellitus without complication, without long-term current use of insulin (CMS/HCC HHS/HCC) TAKE 1 TABLET BY MOUTH TWICE A DAY WITH BREAKFAST AND DINNER 180 tablet 3 2 Active atorvastatin 20 MG tabletIndicatio ns:Dyslipidemia Take 1 tablet (20 mg total) by mouth nightly at bedtime. 90 tablet 3 2 Active sertraline 25 MG tabletIndicatio ns:Anxiety Take 1 tablet (25 mg total) by mouth daily. 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 In January 2017 cardiac Tracey scan Myoview is negative for ischemia. Skin lesion 05/17/2016 Atherosclerosis of coronary artery 05/04/2015 Type 2 diabetes mellitus wit hout complication, without long-term current use of insulin ([facility]) 10/26/2014 Overview (05/05/2019): Description: 08/2001 Thyroid enlargement 03/09/2014 Back strain 02/25/2014 Carotid artery stenosis 02/25/2014 Benign neoplasm of large intestine 03/17/2013 Dyslipidemia 03/17/2013 Hematuria 03/17/2013 Essential hypertension 03/17/2013 Osteopenia 03/17/2013 Resolved Problems Problem Noted Date Diagnosed Date Resolved Date Routine general medical exam ination at a health care facility 12/17/2012 12/04/2021 Immunizations Immunization Administration Dates Next Due Afluria 36 MONTHS+ (Prefille d Syringe IIV4) 07/14/2019 Flublok (Quadrivalent) 05/26/2020 Fluzone High Dose - >Age 65 (Prefilled Syringe) 07/04/2018,07/16/2017,06/22/2016 Influenza (Generic) 06/26/2021, 9,06/30/2018,2014 Influenza Adult (Generic) 06/30/2018,,07/04/2015,2013,07/08/2013,06/23/2012,07/06/2011 Pearlfection (ImmuneXcite & ImmuneXcite) COVID-19 AD26 VACCINE 0.5 ML IM SUSP 12/02/2020 [employer] COVID-19 (ORIGINAL FORMULATION, PURPLE CAP) mRNA, LNP-S, PF, 30 MCG/0.3 ML DOSE 07/28/2021 Pneumococcal (Pneumovax 23) 08/19/2003, 8 Pneumococcal (Prevnar 7) 10/26/2014 Td (Tenivac) preservative free 09/06/2008 Zoster (Zostavax) [address] Unt/0.65Ml 01/09/2017, Social History Tobacco Use Types Packs/Day Years Used Date Smoking Tobacco: Never Smokeless Tobacco: Never Alcohol Use Standard Drinks/Week Comments Yes 0 (1 standard drink = 0.6 oz pur e alcohol) Comments Unknown Sex and Gender Information Value Date Recorded Sex Assigned at Not on file Legal Sex Female 5:51 PM CDT Gender Identity Not on file Sexual Orientation Not on file 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 Not on file Not on file Not on celio e Last Filed Vital Signs Vital Sign Reading Time Taken Comments Blood Pressure 154/70 11/28/2021 1:27 PM [employer]ER [employer] Pulse 72 11/24/2020 10:05 AM [employer] Temperature - - Respiratory Rate - - Oxygen Saturation - - Inhaled Oxygen Concentration - - Weight 46.7 kg (103 lb) 11/28/2021 1:27 PM [employer] Height 153 cm (5' 0.25 ) 11/28/2021 1:27 PM [employer] Body Mass Index 19.95 11/28/2021 1:27 PM [employer] Plan of Treatment Health Maintenance Due Date Last Done Comments ASCVD Statin 1935 Diabetes: Retinopathy Eye Exam 1953 DTaP, Tdap and Td Vaccines (1 - Tdap) 09/07/2008 09/06/2008 RSV Immunization or 60+ Years (1 - 1-dose 75+ series) 12/27/2011 Pneumococcal Vaccine: 50+ Years (2 of 2 - PCV) 10/26/2015 10/26/2014, 08/19/2003, 08/12/1998 Zoster Vaccines (2 of 3) 03/06/2017 01/09/2017, 12/29 ASCVD LDL 11/15/2017 11/15/2016, 04/30, 11/07/2015, Additional history exists Lipid Panel 11/15/2017 11/15/2016, 04/30, 11/07/2015, Additional history exists Hemoglobin A1C 11/15/2022 05/15/2022, 07/31, 07/03/2021, Additional history exists Annual Medicare Wellness Visit 11/29/2022 11/28/2021 COVID-19 Vaccine ( season) 2024 07/28/2021, 12/02/2020 Meningococcal B Vaccine Aged Out No l onger eligible based on patient's age to complete this topic Meningococcal Vaccine Aged Out No isidro calli eligible based on patient's age to complete this topic RSV Immunizations Under 20 Months Aged Out No longer eligible based on patient's age to complete this topic Procedures Procedure Name Priority Date/Time Associated Diagnosis Comments HEMOGLOBIN, GLYCOSYLATED Routine 08/14/2021 11:24 AM [employer] Type 2 diabetes mellitus without complication, without long-term current use of insulin Essential hypertension LIPID PANEL Routine 11/15/2016 11:03 AM [employer] from Last 3 Months or Most Recently Relevant to Health Maintenance Results * (ABNORMAL) HEMOGLOBIN, GLYCOSYLATED (08/14/2021 11:24 AM [employer]) HGB A1C 7.8(A) 4.2 - 6.5 % [facility] 08/14/2021 11:2 4 AM [employer] us Keyshawn Clancy MD LABORATORY Final Resul t [facility] [address] [facility] [address] [place] [id number], * LIPID PANEL (11/15/2016 11:03 AM [employer]) CHOLESTEROL 141 100 - 199 mg/dL TOUCHWORKS TO EPIC CONVERSION TRIGLYCERIDES 108 0 - 149 mg/dL TOUCHWORKS TO EPIC CONVERSION HDL 70 >39 mg/dL TOUCHWORKS TO EPIC CONVERSION VLDL CALCULATION 22 5 - 40 mg/dL TOUCHWORKS TO EPIC CONVERSION LDL (CALCULATED) 49 0 - 99 mg/dL TOUCHWORKS TO EPIC CONVERSION COMMENT TOUCHWORKS TO EPIC CONVERSION 11/15/2016 11:0 3 AM [employer] 11/15/2016 11:03 AM [employer] Narrative TOUCHWORKS TO EPIC CONVERSION - 11/16/2016 5:11 AM [employer] Result Communication: Call patient with results us Keyshawn Clancy MD LABORATORY Final Resul t TOUCHWORKS TO EPIC CONVERSION from Last 3 Months or Most Recently Relevant to Health Maintenance Insurance MEDICARE [facility] Care Teams Welfare Manager Relationship Specialty Start Date End Date Keyshawn Clancy MD [address] [phone] PCP - General 12/03/16
--- OUTSIDE RECORDS SUMMARY | 2025-01-25 09:32 | XMS_ITS | Encounter Summary ---
Author Organization [facility] Facility Care Team Providers Care Material Chaser Name Role Phone Keyshawn Clancy MD Primary Care Provider + [phone] Clare Núñez MD Unavailable [phone] Ranjit Pemberton MD Unavailable [phone] Emre Paz MD Unavailable [phone] Brayden Zarco MD Unavailable [phone] Madhu De Leon DO Primary Care Provider [phone] Encounter Details Date Type Department Care Team (Latest Contact Info) Description 08/27/2017 Orders Only [facility] CLINCONV Provider, MD Sandy [address] [place] [address] Social History Tobacco Use Types Packs/Day Years Used Date Smoking Tobacco: Never Smokeless Tobacco: Never Comments Unknown Sex and Gender Information Value Date Recorded Sex Assigned at Not on file 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 Historical Provider Final Res ult documented in this encounter Visit Diagnoses Not on filedocumented in this encounter Care Teams Material Chaser Relationship Specialty Start Date End Date Keyshawn Clancy MD [address] [place] [address] PCP - General 12/31/16 11/04/22 Madhu De Leon DO [address] [facility] [address] [place] [address] [address] PCP - General Family Medicine 11/05/22 Clare Núñez MD [address] [place] [address] Consulting Physician Radiation Oncology 06/16/18 Ranjit Pemberton MD [address] [place] [address] Otolaryngology 12/29/18 Emre Paz MD [address] [facility] [address] [place] [address] [address] Graphic Coordinator Cardiology 10/28/20 09/02/23 Brayden Zarco MD [address] [facility] [address] [place] [address] [address] Consulting Physician Hematology and Oncology 07/03/21 documented as of this encounter
--- OUTSIDE RECORDS SUMMARY | 2025-01-25 09:32 | XMS_ITS | Encounter Summary ---
Author Organization [facility] Care Team Providers Care Creative Services Coordinator Name Role Phone Keyshawn Clancy MD Primary Care Provider + [phone] Clare Núñez MD Unavailable [phone] Ranjit Pemberton MD Unavailable [phone] Emre Paz MD Unavailable [phone] Brayden Zarco MD Unavailable [phone] Madhu De Leon DO Primary Care Provider [phone] Encounter Details Date Type Department Care Team (Latest Contact Info) Description 10/29/2018 Orders Only [facility] CLINCONV Provider, MD Sandy [address] [place] [address] Social History Tobacco Use Types Packs/Day Years Used Date Smoking Tobacco: Never Smokeless Tobacco: Never Comments Unknown Sex and Gender Information Value Date Recorded Sex Assigned at Not on file Legal 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 Historical Provider Final Res ult documented in this encounter Visit Diagnoses Not on filedocumented in this encounter Care Teams Creative Services Coordinator Relationship Specialty Start Date End Date Keyshawn Clancy MD [address] [place] [address] PCP - General 12/31/16 11/04/22 Madhu De Leon DO [address] [facility] [address] [place] [address] [address] PCP - General Family Medicine 11/05/22 Clare Núñez MD [address] [place] [address] Consulting Physician Radiation Oncology 06/16/18 Ranjit Pemberton MD [address] [place] [address] Otolaryngology 12/29/18 Emre Paz MD [address] [facility] [address] [place] [address] [address] Home Organizer Cardiology 10/28/20 09/02/23 Brayden Zarco MD [address] [facility] [address] [place] [address] [address] Consulting Physician Hematology and Oncology 07/03/21 documented as of this encounter
--- OUTSIDE RECORDS SUMMARY | 2025-01-25 09:32 | XMS_ITS | Clinical Summary ---
Author Organization [facility] Address [address] [place] [address] Care Team Providers Care Wharf Tally Clerk Name Role Phone Clare Núñez MD Unavailable [phone] Ranjit Pemberton MD Unavailable Brayden Zarco MD Unavailable [phone] Madhu De Leon DO Primary Care Provider [phone] Allergies Active Allergy Reactions Criticality Noted Date [...] 11/10/2021 Assessment & Plan (11/06/2022 10:57 AM AUTO CUSTOMIZE PAINTER): Blood pressure is well controlled. Continue current medications. Continue low- salt diet. Continue hydrochlorothiazide and losartan. Add Chem 7 to the yesterday's labs as she is on hydrochlorothiazide Abnormal chest x-ray 11/10/2021 Mixed hyperlipidemia 08/15/2021 Assessment & Plan (11/06/2022 10:56 AM AUTO CUSTOMIZE PAINTER): Recent lipid panel looks good along with LFTs. I reviewed with her. I will repeat her Chem 12 and lipids prior to next appointment. Continue heart healthy diet and also atorvastatin. 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 Continue aspirin. [...] 08/15/2021 Atherosclerosis of coronary artery 05/04/2015 05/05/2021 Encounters Date Type Department Care Team Description 11/27/2024 11:00 AM AUTO CUSTOMIZE PAINTER Office Visit [facility] [address] [phone] Emre Paz MD 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 (Primary Dx); Mixed hyperlipidemia; Essential hypertension, benign 11/24/2024 Results Follow-Up [facility] [address] [phone] Raji Terry RN 11/20/2024 10:40 AM AUTO CUSTOMIZE PAINTER Lab [facility] [address] [place] [address] 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; Essential hypertension, benign; Mixed hyperlipidemia; Hypercalcemia from Last 3 Months Immunizations Immunization Administration Dates Next Due Influenza, Quadrivalent, Hig h Dose, Preservative Free, Intrr 06/28/2022 Influenza, Quadrivalent, Rec ombinant, Egg Free, Preservative Free, Intramuscular 05/26/2020 Influenza, Quadrivalent, Spl it, Preservative Free, Intramuscular 07/14/2019 Influenza, Split 06/23/2012,07/06/2011 Influenza, Trivalent, High D ose, Split, Preservative Free, Intramuscular 07/04/2018,07/16/2017,06/22/2016 Influenza, Trivalent, IM (MDV) 07/04/2015,2013,07/08/2013 Influenza, Unspecified 06/24/2024,06/26/2021,09/2017 [employer] SARS-CoV-2 Vaccination 12/02/2020 Pneumococcal Conjugate 7-Valent 10/26/2014 Pneumococcal Polysaccharide PPV23 08/19/2003, TD Preservative Free 09/06/2008 ZOSTER LIVE 01/09/2017,01/15/2007 Surgical History Surgery Date Site/Laterality Comments BLADDER SURGERY BREAST LUMPECTOMY 2013 BREAST BIOPSY MASTECTOMY Right 50 years ago CATARACT EXTRACTION CATARACT EXTRACTION COLONOSCOPY Medical History Medical History Date Comments Heart attack (HCC) Hypertension Cancer (HCC) Diabetes mellitus (HCC) Thyroid disease Gastric reflux Osteoporosis Depression High cholesterol Fibrocystic breast Breast cancer (HCC) right breast 50 years ago Ductal hyperplasia of breast History of radiation therapy BRCA1 negative BRCA2 negative Family History Medical History Relation Name Comments Arthritis Brother Stroke Daughter Cancer Father Heart disease Mother Breast cancer Sister ekndall Lung disease Sister kendall Diabetes Son Relation Name Status Comments Brother Daughter Father Mother Sister kendall Alive Son Social History Tobacco Use Types Packs/Day Years [...] on file Legal Sex Female 9:06 PM AUTO CUSTOMIZE PAINTER Gender Identity Not on file Sexual Orientation Not on file Obstetrics History Para Term AB IAB SAB Ectopic Multiple Livin g Live Births 2 2 2 Date Outcome GA Total Labor Labor/2nd/3rd Weight Sex Type Anes PTL Mary A1 A5 Name Clin Term Term Last Filed Vital Signs Vital Sign Reading Time Taken Comments Blood Pressure 110/60 11/27/2024 10:50 AM AUTO CUSTOMIZE PAINTER Pulse 71 11/27/2024 10:50 AM AUTO CUSTOMIZE PAINTER Temperature 36.3 C (97.3 F) 07/01/2024 10:19 AM CDT Respiratory Rate 20 07/01/2024 10:19 AM CDT Oxygen Saturation 98% 11/27/2024 10:50 AM AUTO CUSTOMIZE PAINTER Inhaled Oxygen Concentration - - Weight 44.5 kg (98 lb) 11/27/2024 10:50 AM AUTO CUSTOMIZE PAINTER Height 154.9 cm (5' 1 ) 11/27/2024 10:50 AM AUTO CUSTOMIZE PAINTER Body Mass Index 18.52 11/27/2024 10:50 AM AUTO CUSTOMIZE PAINTER Plan of Treatment Health Maintenance Due Date Last Done Comments Albumin Creatinine Ratio, Urine 1936 Depression Screening 1936 Fall Risk Assessment 1936 Dilated Eye Exam 1936 Foot Exam 1936 Hepatitis B Screening 1954 Well Visit 65+ 2001 DTaP/Tdap/Td Vaccine (1 - Tdap) 09/07/2008 8 Zoster Vaccine (2 of 3) 03/06/2017 01/09/2017, 01/15 Hemoglobin A1C 11/15/2022 05/15/2022, 10/0 12/2020, 10/24/2020, Additional history exists Covid-19 Vaccine (3 - 2023-2 5 season) 2024 07/28/2021, 12/02/2020 Lipid Panel 11/20/2025 11/20/2024, 05/01, 11/26/2023, Additional history exists eGFR 11/20/2025 11/20/2024, 100 10/2023, 05/21/2024, Additional history exists Pneumococcal vaccine 65+ Completed 015, 08/19/2003, 08/12/1998 Influenza Vaccine Completed 06/24/2024, , 06/26/2021, Additional history exists Procedures Procedure Name Priority Date/Time Associated Diagnosis Comments EGFR Routine 11/20/2024 10:44 AM AUTO CUSTOMIZE PAINTER 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 Essential hypertension, benign Mixed hyperlipidemia Hypercalcemia LIPID PANEL Routine 11/20/2024 10:44 AM AUTO CUSTOMIZE PAINTER 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 Essential hypertension, benign Mixed hyperlipidemia Hypercalcemia COMPREHENSIVE METABOLIC PANEL Routine 11/20/2024 10:44 AM AUTO CUSTOMIZE PAINTER 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 73 m2 Comment: [...] reviewed 2021. Blood 11/20/2024 10:4 4 AM AUTO CUSTOMIZE PAINTER 11/20/2024 10:57 AM AUTO CUSTOMIZE PAINTER us Emre Paz MD LAB BLOOD ORDERABLES Final Result [id number] [id number] [facility] Department [place] [address] * Lipid panel (11/20/2024 10:44 AM AUTO CUSTOMIZE PAINTER) Cholesterol 178 30 - 199 mg/dL Comment: [...] mg/dL High: >160 mg/dL Calculated using the Samuel LDL-C estimating equation. This equation was implemented on 2024. Prior to this date LDL-C was estimated using the Friedewald equation. Literature References: 1. Expert Panel on Integrated Guidelines for Cardiovascular Health and Risk Reduction in Children and Adolescents. Pediatrics 2011;128:S213 2. NCEP Expert Panel. Circulation 2004;110:227 3. Jimmie Andrade et al. JULIAN Cardiol. 2019January 28;5(5):540-548. doi: 10.1001/jamacardio.2020.0013 Current Interpretive Data was last revised on 2024. Non-HDL Cholesterol 79 mg/dL [facility] Comment: Interpretive Data Ages < or = [...] last revised on 2018. Chol/HDL ratio [address] [facility] Blood 11/20/2024 10:4 4 AM AUTO CUSTOMIZE PAINTER 11/20/2024 10:57 AM AUTO CUSTOMIZE PAINTER us Emre Paz MD LAB BLOOD ORDERABLES Final Result [id number] [id number] [facility] Department of Laboratories [place], [place] [id number] * (ABNORMAL) Comprehensive metabolic panel (11/20/2024 10:44 AM AUTO CUSTOMIZE PAINTER) Sodium 133(L) 135 - 145 mmol/L Potassium, pl 4.1 3.3 - 4.9 mmol/L [facility] Chloride 91(L) 97 - 110 mmol/L [facility] CO2 29 22 - 32 mmol/L [facility] Anion gap 13 2 - 15 mmol/L [facility] BUN 22 6 - 25 mg/dL [facility] Creatinine 1.07 0.60 - 1.10 mg/dL [facility] Glucose 184 70 - 199 mg/dL [facility] Comment: Interpretive Data Fasting glucose >/= 126 [...] 2022. Calcium 10.4(H) 8.5 - 10.3 mg/dL [facility] Bilirubin, total 0.4 0.1 - 1.2 mg/dL [facility] Protein, pl 7.4 6.5 - 8.5 g/dL [facility] Albumin 4.2 3.5 - 5.0 g/dL [facility] Alk phos 182(H) 40 - 130 Units/L [facility] ALT 10 7 - 45 Units/L [facility] AST 17 10 - 45 Units/L [facility] Blood 11/20/2024 10:4 4 AM AUTO CUSTOMIZE PAINTER 11/20/2024 10:57 AM AUTO CUSTOMIZE PAINTER Emre Paz MD LAB BLOOD ORDERABLES Final Result [facility] [id number] [facility] Department of Laboratories [place], [place] [id number] * (ABNORMAL) Hemoglobin A1c (05/15/2022 2:05 PM CDT) Hgb A1C 7.6(H) 4.0 - 5.6 % [facility] Estimated Average Glucose 171 mg/dL [facility] Comment: The ADA recommends reporting an estimated Average Glucose (eAG) with all Hemoglobin A1c results using the equation derived from a study of 507 normal and diabetic adults. Minority populations were underrepresented and children were not included. (Diabetes Care 31:2617-4681, 2008). The eAG is not equivalent to a fasting glucose. Blood 05/15/2022 2:05 PM CDT 05/15/2022 2:51 PM CDT Brayden Zarco MD LAB BLOOD ORDERABLES Final Re sult [facility] [address] [facility] Department [place] [address] from Last 3 Months or Most Recently Relevant to Health Maintenance Insurance MEDICARE [facility] MEDICARE [facility] FEDERAL MEDICARE MEDICARE [facility] [employer] Care Teams Wharf Tally Clerk Relationship Specialty Start Date End Date Madhu De Leon DO [address] [place] [address] PCP - General Family Medicine 11/05/22 Clare Núñez MD Consulting Physician Radiation Oncology 06/16/18 Ranjit Pemberton MD [address] [place] [address] Otolaryngology 12/29/18 Brayden Zarco MD [address] [place] [address] Consulting Physician Hematology and Oncology 07/03/21
[2025-01-25 09:58] LABS: Hematocrit 40.9 % (37.0-47.0); Mean Corpuscular HGB Conc 31.8 g/dl (32-36); Mean Corpuscular Hemoglobin 29.1 pg (26-34); Mean Corpuscular Volume 91.7 fl (80-100); Platelet Count Result 191 k/mm3 (150-375); Red Blood Count 4.46 M/mm3 (4.2-5.4); Red Cell Distribution Width 13.1 % (11.5-14.5)
[2025-01-25 10:16] LABS: Alanine Aminotransferase 16 U/L (6-35); Albumin Level 4.4 g/dL (3.5-5.1); Alkaline Phosphatase 66 U/L (38-126); Anion Gap 7 mmol/L (4-12); Aspartate Amino Transferase 22 U/L (14-36); Bilirubin,Total 0.7 mg/dL (0.2-1.3); Blood Urea Nitrogen 25 mg/dL (7-17); Calcium 10.2 mg/dL (8.4-10.2); Carbon Dioxide 37 mmol/L (22-30); Chloride 89 mmol/L (98-107); Cholesterol 175 mg/dL (0-200); Estimated Glomerular Filt Rate 57; Glucose 195 mg/dL (65-110); HDL Direct 86 mg/dL; Potassium 3.7 mmol/L (3.4-5.0); Sodium 133 mmol/L (137-145); Triglycerides 82 mg/dL (<150)
[2025-01-25 10:18] LABS: Hemoglobin A1C 7.8 % (<5.7)
[2025-01-25 10:28] LABS: LDL Cholesterol Direct 53 mg/dL
[2025-01-28 20:13] LABS: Glutamic acid decarboxylase AA <5 IU/mL (<5)
== END 2025-01-25 08:58 | disposition home or self-care (01) ==
PROVIDERS: PCP Family Medicine; Visit Provider Family Medicine
DX: F41.9 Anxiety disorder, unspecified (principal); E11.9 Type 2 diabetes mellitus without complications; R63.4 Abnormal weight loss; I10 Essential (primary) hypertension; I25.810 Atherosclerosis of coronary artery bypass graft(s) without angina pectoris; Z79.899 Other long term (current) drug therapy
CPT/HCPCS: 36415; 80053; 80061; 83036; 84443; 85027; 86341

== ENCOUNTER 2025-03-27 16:34 | Inpatient (IN) | payer MEDICARE, BC, SELFPAY ==
--- NOTE | ~2025-03-27 | CT_ITS ---
EXAMINATION: CT cervical spine wo con DATE: 03/27/2025 22:00 INDICATION: fall 2 days ago , hi, L neck pain TECHNIQUE: Computed tomography (CT) of the cervical spine was performed without intravenous contrast. Automated exposure control and iterative reconstruction technique were employed. The dose-length pro duct was 109.33 mGy-cm. COMPARISON: 01/12/2024. FINDINGS: Vertebral Body Alignment: Stable trace multilevel listheses, secondary to degenerative changes. Craniocervical and atlantoaxial alignment: Moderate degenerative change. Alignment intact. Osseous structures/fracture: No evidence of a lytic or blastic process in the visualized spine. No e vidence of acute fracture. Stable chronic compression deformity of T3. Cervical soft tissues: The paraspinal soft tissues planes are maintained. Nodules in the thyroid, quyen suring up to 3.6 cm. Right medial lung scarring. Degenerative changes: Multilevel degenerative disc disease, severe at C5-6 and C6-7. Multilevel sever e bilateral neural foraminal narrowing secondary to degenerative changes. No severe central canal uma rowing. IMPRESSION: No acute fracture or traumatic malalignment in the cervical spine. Reviewed, dictated and finalized at location K.
--- NOTE | ~2025-03-27 | XR_ITS ---
EXAMINATION: XR chest 1V portable Exam Date/Time: 03/27/2025 21:04 CDT HISTORY: CHEST PAIN Comparison: CT C-spine 01/12/2024. RESULT: Lines, tubes, and devices: None. Lungs and pleura: Kyphotic positioning. Volume loss in the right lung with medial fibrolinear scarrin g. No focal consolidation, pleural effusion, or pneumothorax. Cardiomediastinal silhouette: Mitral annulus calcification. Atherosclerotic aortic calcification. Other: No acute osseous or upper abdominal finding. IMPRESSION: No acute cardiopulmonary process. Reviewed, dictated and finalized at location K.
--- NOTE | ~2025-03-27 | CT_ITS ---
EXAMINATION: CT brain wo con DATE: 03/27/2025 22:00 INDICATION: fall 2 days ago , hi . TECHNIQUE: Computed tomography (CT) of the head was performed without intravenous contrast. The mA wa s adjusted according to patient size. Iterative reconstruction technique was employed. The dose-lengt h product was 109.33 mGy-cm. COMPARISON: 01/12/2024. FINDINGS: No acute intracranial hemorrhage or extra-axial fluid collection. No hydrocephalus, mass, or herniation. No acute ischemic infarct. Unremarkable dural venous sinus attenuation. No acute osseous abnormality. The aerated spaces are clear. Mild atrophy and moderate chronic white matter change. Atherosclerotic intracranial calcification. Bi lateral lens replacements. Bilateral basal atelectatic calcification IMPRESSION: No acute intracranial process. Reviewed, dictated and finalized at location K.
--- NOTE | 2025-03-27 16:36 | ECG_ITS ---
Test Date: 2025-03-27 16:47:45 Measurements Intervals [place] Rate: 78 P: 40 VT: 178 QRS: -9 QRSD: 94 T: 59 QT: 375 QTc: 427 Interpretive Statements SINUS RHYTHM BASELINE ARTIFACT- I, II, III, AVR, AVL, AVF, V1-V6 NORMAL ECG No previous ECG available for comparison Electronically Signed On 03-27-2025 20:00:27 CDT by Fadi Monson D.O.
[2025-03-27 16:37] VITALS: BP 163/82; PULSE 79; RESP 18; TEMP 36.6; O2SAT 98
[2025-03-27 21:12] LABS: Hematocrit 39.2 % (37.0-47.0); Hemoglobin 13.3 g/dL (12.0-15.0); Immature Granulocyte Percent A 0.4 % (0-0.5); Lymphocytes Absolute Auto 1.35 K/mm3 (0.9-3.2); Mean Corpuscular HGB Conc 33.9 g/dl (32-36); Mean Corpuscular Hemoglobin 29.2 pg (26-34); Mean Corpuscular Volume 86.2 fl (80-100); Nucleated Red Blood Cells Absolute Auto 0.000 K/mm3 (0.0-0.012); Nucleated Red Blood Cells Perc 0.0 % (0.0-0.2); Platelet Count Result 193 k/mm3 (150-375); Red Blood Count 4.55 M/mm3 (4.2-5.4); White Blood Count 10.7 K/mm3 (4.5-10.0)
[2025-03-27 21:21] LABS: Alanine Aminotransferase 16 U/L (6-35); Albumin Level 4.5 g/dL (3.5-5.1); Alkaline Phosphatase 46 U/L (38-126); Anion Gap 9 mmol/L (4-12); Aspartate Amino Transferase 28 U/L (14-36); Bilirubin,Total 1.1 mg/dL (0.2-1.3); Blood Urea Nitrogen 35 mg/dL (7-17); Calcium 10.5 mg/dL (8.4-10.2); Carbon Dioxide 32 mmol/L (22-30); Chloride 79 mmol/L (98-107); Estimated CRCL calculation 27 ml/min; Estimated Glomerular Filt Rate > 60; Glucose 150 mg/dL (65-110); Potassium 3.8 mmol/L (3.4-5.0); Sodium 120 mmol/L (137-145); Total Protein 7.9 g/dL (6.3-8.2)
[2025-03-27 21:23] LABS: INR 1.0; Prothrombin Time 13.2 Seconds (11.1-14.7)
[2025-03-27 21:24] LABS: Partial Thromboplastin Time 22.8 Seconds (22.3-36.8)
[2025-03-27 21:33] LABS: NT Pro B Type Natriuretic Pept 325 pg/mL (19.9-100); Troponin I < 0.012 ng/mL (0.000-0.034)
--- NOTE | 2025-03-27 21:48 | ED_ITS ---
HPI - General Adult General Chief complaint: Unspecified <FRIDA Mendez Last Filed: 03/28/25 01:19> Stated complaint: concern for CT, but denies CP <FRIDA Mendez Last Filed: 03/28/25 01:19> Time Seen by Provider: 03/27/25 20:33 <FRIDA Mendez Last Filed: 03/28/25 01:19> Source: patient <FRIDA Mendez Last Filed: 03/28/25 01:19> Mode of arrival: ambulatory <FRIDA Mendez Last Filed: 03/28/25 01:19> Limitations: no limitations <FRIDA Mendez Last Filed: 03/28/25 01:19> History of Present Illness HPI narrative: Patient is an 89-year-old female who presents the ED with report of left- sided neck pain. Patient reports she fell at the library 2 days ago. States she walked in the door and suddenly felt as though she was going to go down. May have felt slightly lightheaded. She fell forward hitting her head. Denied LOC, syncope. Since then, she has been having some pain throughout her left- sided neck and left trapezius region. Worse with movement. Denies numbness or tingling of extremities. States she talked to her doctor about this and was referred to the ED to r/o cardiac issue. Denies CP or SOB. Does have remote hx of CAD w/stenting in 2015. Patient lives at home alone. Denies using cane or walker. <FRIDA Mendez Last Filed: 03/28/25 01:19> Related Data Home medications: Home Medications ?Medication ?Instructions ?Recorded ?Confirmed ?Last Taken ?Type magnesium 200 mg tablet 200 mg PO DAILY 04/19/22 03/28/25 Unknown History mecobalamin (vitamin B12) 1,000 1,000 mcg PO DAILY 04/19/22 03/28/25 Unknown History mcg chewable tablet metoprolol succinate 100 mg 100 mg PO DAILY 04/19/22 03/28/25 Unknown History tablet,extended release 24 hr <Concha Jones PA-C - Last Filed: 03/28/25 01:19> Allergies/adverse reactions: Allergies Allergy/AdvReac Type Severity Reaction Status Date / Time Latex, Natural Rubber Allergy Mild Redness of Verified 03/28/25 03:38 Skin Penicillins Allergy Unknown Verified 03/28/25 03:38 <Concha Jones PA-C - Last Filed: 03/28/25 01:19> Review of Systems 2 Review of Systems: All systems reviewed & are unremarkable except as noted in HPI. <Concha Jones PA-C - Last Filed: 03/28/25 01:19> All systems reviewed & are unremarkable except as noted in HPI and below < Concha Jones PA-C - Last Filed: 03/28/25 01:19> [facility] Past Medical History Medical History: Medical History Coronary artery disease Chronic hyponatremia Hyperlipemia Thyroid nodule Breast cancer Type 2 diabetes mellitus without complications Hypertension Anxiety <Concha Jones PA-C - Last Filed: 03/28/25 01:19> Surgical History Surgical History: Surgical History History of coronary artery stent placement History of cataract extraction with lens replacement History of lumpectomy of left breast History of total mastectomy of right breast <Concha Jones PA-C - Last Filed: 03/28/25 01:19> Family History Family History: Family History Mother Diabetes mellitus <Concha Jones PA-C - Last Filed: 03/28/25 01:19> Social History Social History: Social History Social History: Healthcare power of on air announcer: Dr. Humera Gotti ([phone]). Code status: Full code. Smoking status: Never smoker Alcohol intake: never Substance use: never Substance use type: does not use Do You Feel Safe in your Home?: Yes Lack of Transportation: No Lack of Food: Never True Current Housing: I Have Housing Concerned About Future Housing: No Difficulty Paying Gas/Electric Bills: No Difficulty Paying for Meds: No Currently Unemployed: No Education: Master's Degree or Higher Difficulty w/ Childcare or Family Care: No Additional living arrangements comments: The patient lives in her own home in [place]. Occupation/Education: retired Spiritual care concerns: No <Concha Jones PA-C - Last Filed: 03/28/25 01:19> Exam 2 Narrative: GENERAL: Elderly, frail/thin, non-toxic, in no acute distress. HEAD: Normocephalic, atraumatic. NECK: No significant midline spinal tenderness. TTP throughout L sided paraspinal musculature into left upper trapezius region. RESPIRATORY: Airway patent, respirations nonlabored. Clear to auscultation bilaterally, no rales, rhonchi, wheezing. CARDIOVASCULAR: Regular rate and rhythm without murmurs, rubs, or gallops. MUSCULOSKELETAL: Moves all extremities. No gross deformities. No T/L midline spinal tenderness. SKIN: Warm, dry, normal color. Radiation scarring to R upper chest wall. NEURO: A&O X3. Answers all questions but intermittently confused. Speech clear. Cranial nerves II-XII grossly intact. Steady gait. No ataxic movements. No focal deficits. PSYCHIATRIC: Appropriate mood and affect. Normal interaction. <Concha Jones PA-C - Last Filed: 03/28/25 01:19> Course INSTITUTION DIRECTOR/PA Physician Supervision PA discussed patient with myself. We discussed initially that it would possibly be reasonable for either course of action, either admission given her sodium which did not initially correct verses discharge if could ensure close follow-up. However, SUE did inform me that upon re-evaluation, patient's confusion has become more apparent as she made a comment such as So i need to follow up with my lou?Given this degree of persistent confusion which may represent symptomatology her hyponatremia, reasonable to admit and I concur. In this way I was available for all for consultation while patient was in the emergency department but did not physically examine this patient. <Deanna Menjivar MD - Last Filed: 03/28/25 18:25> Vital Signs Vital signs: Vital Signs Temperature 97.8 F 06/28/25 16:37 Pulse Rate 79 03/27/25 16:37 Respiratory Rate 18 03/27/25 16:37 Blood Pressure 163/82 H 03/27/25 16:37 Pulse Oximetry 98 03/27/25 16:37 Oxygen Delivery Room Air 03/27/25 16:37 Temperature 98.2 F 03/28/25 16:07 Pulse Rate 69 03/28/25 16:07 Respiratory Rate 16 03/28/25 16:07 Blood Pressure 134/63 03/28/25 16:07 Pulse Oximetry 98 03/28/25 16:07 Oxygen Delivery Room Air 03/28/25 08:00 <Concha Jones PA-C - Last Filed: 03/28/25 01:19> Vital Signs Temperature 97.8 F 03/27/25 16:37 Pulse Rate 79 03/27/25 16:37 Respiratory Rate 18 03/27/25 16:37 Blood Pressure 163/82 H 03/27/25 16:37 Pulse Oximetry 98 03/27/25 16:37 Oxygen Delivery Room Air 03/27/25 16:37 Temperature 98.2 F 03/28/25 16:07 Pulse Rate 69 03/28/25 16:07 Respiratory Rate 16 03/28/25 16:07 Blood Pressure 134/63 03/28/25 16:07 Pulse Oximetry 98 03/28/25 16:07 Oxygen Delivery Room Air 03/28/25 08:00 <Deanna Menjivar MD - Last Filed: 03/28/25 18:25> Medical Decision Making MDM Narrative Medical decision making narrative: Patient presented to ED s/p fall 2 days ago, unclear etiology. States she just felt as though she was going to go down. Did hit her head. Denied LOC/syncope. C/o L sided neck pain, also worried about cardiac etiology. Denies CP/SOB. Vital signs are stable upon arrival. Patient is in no acute distress. Neurologically intact. No focal deficits. CT brain and cervical spine were obtained and unremarkable. No traumatic findings. Suspicious for musculoskeletal pain. EKG with sinus rhythm, no concerning ST changes. Troponin undetectable. Chest x-ray is clear. BNP within normal range for age. Basic laboratory studies were obtained with minimal leukocytosis of 10.7. Significant hyponatremia noted at 120. Per records (as recent as December 2024), patient consistently in the 130s. Fluids were initiated. Chloride was low at 79. Bicarb 32. Kidney function is stable. Blood sugar 150. No significant correction for hyponatremia. Repeat BMP after fluids shows persistent hyponatremia at 120. Concerned that this may have contributed to patient's fall. Upon further discussion with patient and friend at bedside, patient has been increasingly confused and weak over the past couple of days. Friend reports she had lunch with patient on and she seemed normal then, but has been confused tonight. Patient is able to follow conversation, but will occasionally make off the wall comments that do not fit with conversation. Additionally, patient lives at home alone, at risk for further falls. Given change in mental status in the setting of significant hyponatremia, will admit for further evaluation and slow uptrending of sodium. Discussed case with Rhianna ROGERS hospitalist, accepted patient for admission. Patient and friend in agreement with plan and need for admission. <Concha Jones PA-C - Last Filed: 03/28/25 01:19> Medical Records Medical records reviewed: Yes I reviewed the external patient's medical records. <Concha Jones PA-C - Last Filed: 03/28/25 01:19> Vital Signs Vital Signs: Vital Signs Temperature 97.8 F 03/27/25 16:37 Pulse Rate 79 03/27/25 16:37 Respiratory Rate 18 03/27/25 16:37 Blood Pressure 163/82 H 03/27/25 16:37 Pulse Oximetry 98 03/27/25 16:37 Oxygen Delivery Room Air 03/27/25 16:37 Temperature 98.2 F 03/28/25 16:07 Pulse Rate 69 03/28/25 16:07 Respiratory Rate 16 03/28/25 16:07 Blood Pressure 134/63 03/28/25 16:07 Pulse Oximetry 98 03/28/25 16:07 Oxygen Delivery Room Air 03/28/25 08:00 <Concha Jones PA-C - Last Filed: 03/28/25 01:19> Vital Signs Temperature 97.8 F 03/27/25 16:37 Pulse Rate 79 03/27/25 16:37 Respiratory Rate 18 03/27/25 16:37 Blood Pressure 163/82 H 03/27/25 16:37 Pulse Oximetry 98 03/27/25 16:37 Oxygen Delivery Room Air 03/27/25 16:37 Temperature 98.2 F 03/28/25 16:07 Pulse Rate 69 03/28/25 16:07 Respiratory Rate 16 03/28/25 16:07 Blood Pressure 134/63 03/28/25 16:07 Pulse Oximetry 98 03/28/25 16:07 Oxygen Delivery Room Air 03/28/25 08:00 <Deanna Menjivar MD - Last Filed: 03/28/25 18:25> Lab Data Lab results reviewed: Yes I reviewed the patient's lab results. <Concha Jones PA-C - Last Filed: 03/28/25 01:19> Result diagrams: 03/28/25 05:10 03/28/25 16:14 <Concha Jones PA-C - Last Filed: 03/28/25 01:19> Labs: Lab Results 03/27/25 03/27/25 03/28/25 Range/Units 21:05 23:33 01:52 WBC 10.7 H (4.5-10.0) K/mm3 RBC 4.55 (4.2-5.4) M/mm3 Hgb 13.3 (12.0-15.0) g/dL Hct 39.2 (37.0-47.0) % MCV 86.2 (80-100) fl MCH 29.2 (26-34) pg MCHC 33.9 (32-36) g/dl RDW 13.0 (11.5-14.5) % Plt Count 193 (150-375) k/mm3 MPV 10.4 (7.4-10.4) fl Immature Gran % (Auto) 0.4 (0-0.5) % Neut % (Auto) 75.6 H (45.5-73.1) % Lymph % (Auto) 12.6 L (18.3-44.2) % [place] % (Auto) 11.1 H (2.6-8.5) % Eos % (Auto) 0.1 (0-4.4) % Baso % (Auto) 0.2 (0.2-1.2) % Lymph # (Auto) 1.35 (0.9-3.2) K/mm3 [place] # (Auto) 1.2 H (0.1-0.6) K/mm3 Eos # (Auto) 0.0 (0-0.3) K/mm3 Baso # (Auto) 0.0 (0.0-0.1) K/mm3 Abs Immat Gran (auto) 0.04 H (0.00-0.031) K/mm3 Absolute Neuts (auto) 8.1 H (1.3-6.7) K/mm3 Absolute Nucleated RBC 0.000 (0.0-0.012) K/mm3 Nucleated RBC % 0.0 (0.0-0.2) % PT 13.2 (11.1-14.7) Seconds INR 1.0 APTT 22.8 (22.3-36.8) Seconds Sodium 120 L 120 L (137-145) mmol/L Potassium 3.8 3.3 L (3.4-5.0) mmol/L Chloride 79 L 82 L (98-107) mmol/L Carbon Dioxide 32 H 29 (22-30) mmol/L Anion Gap 9 9 (4-12) mmol/L BUN 35 H D 30 H (7-17) mg/dL Creatinine 0.83 0.73 (0.7-1.0) mg/dL Estim Creat Clear Calc 27 30 ml/min Estimated GFR > 60 > 60 (59 - ) Glucose 150 H 148 H (65-110) mg/dL Hemoglobin A1c (<5.7) % Calcium 10.5 H 9.2 (8.4-10.2) mg/dL Magnesium (1.6-2.3) mg/dL Total Bilirubin 1.1 (0.2-1.3) mg/dL AST 28 (14-36) U/L ALT 16 (6-35) U/L Alkaline Phosphatase 46 (38-126) U/L Troponin I < 0.012 (0.000-0.034) ng/mL NT-Pro-B Natriuret Pep 325 H (19.9-100) pg/mL Total Protein 7.9 (6.3-8.2) g/dL Albumin 4.5 (3.5-5.1) g/dL TSH (Reflex) (0.465-4.68) uIU/mL Random Cortisol ug/dL Urine Color Yellow (Yellow) Urine Appearance Clear (Clear) Urine pH 6.5 (5.0-9.0) Ur Specific Win[place] 1.011 (1.001-1.035) Urine Protein 1+ H (Negative) mg/dL Urine Glucose (UA) Negative (Negative) mg/dL Urine Ketones 1+ H (Negative) mg/dL Ur Blood (Man) 1+ H (Negative) Urine Nitrate Negative (Negative) Urine Bilirubin Negative (Negative) Urine Urobilinogen 0.2 (<2.0) mg/dL Leukocyte Esterase Rfl Negative (Negative) VISHAL/UL Urine RBC 6-10 H (0-2) /hpf Urine WBC 0-5 (0-3) /hpf Ur Squamous Epith Cells None seen (Few) /hpf Urine Bacteria None seen /hpf Urine Casts 0-2 Urine Osmolality Pending Ur Random Sodium 105 meq/L Urine Creatinine 23.3 mg/dL 03/28/25 Range/Units 05:10 WBC 8.6 (4.5-10.0) K/mm3 RBC 4.14 L (4.2-5.4) M/mm3 Hgb 12.2 (12.0-15.0) g/dL Hct 35.8 L (37.0-47.0) % MCV 86.5 (80-100) fl MCH 29.5 (26-34) pg MCHC 34.1 (32-36) g/dl RDW 12.7 (11.5-14.5) % Plt Count 157 (150-375) k/mm3 MPV 10.7 H (7.4-10.4) fl Immature Gran % (Auto) (0-0.5) % Neut % (Auto) (45.5-73.1) % Lymph % (Auto) (18.3-44.2) % [place] % (Auto) (2.6-8.5) % Eos % (Auto) (0-4.4) % Baso % (Auto) (0.2-1.2) % Lymph # (Auto) (0.9-3.2) K/mm3 [place] # (Auto) (0.1-0.6) K/mm3 Eos # (Auto) (0-0.3) K/mm3 Baso # (Auto) (0.0-0.1) K/mm3 Abs Immat Gran (auto) (0.00-0.031) K/mm3 Absolute Neuts (auto) (1.3-6.7) K/mm3 Absolute Nucleated RBC (0.0-0.012) K/mm3 Nucleated RBC % (0.0-0.2) % PT (11.1-14.7) Seconds INR APTT (22.3-36.8) Seconds Sodium 120 L (137-145) mmol/L Potassium 3.4 (3.4-5.0) mmol/L Chloride 84 L (98-107) mmol/L Carbon Dioxide 28 (22-30) mmol/L Anion Gap 8 (4-12) mmol/L BUN 24 H (7-17) mg/dL Creatinine 0.66 L (0.7-1.0) mg/dL Estim Creat Clear Calc 30 ml/min Estimated GFR > 60 (59 - ) Glucose 174 H (65-110) mg/dL Hemoglobin A1c 7.4 H (<5.7) % Calcium 9.4 (8.4-10.2) mg/dL Magnesium 1.0 L (1.6-2.3) mg/dL Total Bilirubin (0.2-1.3) mg/dL AST (14-36) U/L ALT (6-35) U/L Alkaline Phosphatase (38-126) U/L Troponin I < 0.012 (0.000-0.034) ng/mL NT-Pro-B Natriuret Pep (19.9-100) pg/mL Total Protein (6.3-8.2) g/dL Albumin (3.5-5.1) g/dL TSH (Reflex) 1.520 (0.465-4.68) uIU/mL Random Cortisol 23.20 ug/dL Urine Color (Yellow) Urine Appearance (Clear) Urine pH (5.0-9.0) Ur Specific [place] (1.001-1.035) Urine Protein (Negative) mg/dL Urine Glucose (UA) (Negative) mg/dL Urine Ketones (Negative) mg/dL Ur Blood (Man) (Negative) Urine Nitrate (Negative) Urine Bilirubin (Negative) Urine Urobilinogen (<2.0) mg/dL Leukocyte Esterase Rfl (Negative) VISHAL/UL Urine RBC (0-2) /hpf Urine WBC (0-3) /hpf Ur Squamous Epith Cells (Few) /hpf Urine Bacteria /hpf Urine Casts Urine Osmolality Ur Random Sodium meq/L Urine Creatinine mg/dL <Concha Jones PA-C - Last Filed: 03/28/25 01:19> Lab Results 03/27/25 03/27/25 03/28/25 Range/Units 21:05 23:33 01:52 WBC 10.7 H (4.5-10.0) K/mm3 RBC 4.55 (4.2-5.4) M/mm3 Hgb 13.3 (12.0-15.0) g/dL Hct 39.2 (37.0-47.0) % MCV 86.2 (80-100) fl MCH 29.2 (26-34) pg MCHC 33.9 (32-36) g/dl RDW 13.0 (11.5-14.5) % Plt Count 193 (150-375) k/mm3 MPV 10.4 (7.4-10.4) fl Immature Gran % (Auto) 0.4 (0-0.5) % Neut % (Auto) 75.6 H (45.5-73.1) % Lymph % (Auto) 12.6 L (18.3-44.2) % [place] % (Auto) 11.1 H (2.6-8.5) % Eos % (Auto) 0.1 (0-4.4) % Baso % (Auto) 0.2 (0.2-1.2) % Lymph # (Auto) 1.35 (0.9-3.2) K/mm3 [place] # (Auto) 1.2 H (0.1-0.6) K/mm3 Eos # (Auto) 0.0 (0-0.3) K/mm3 Baso # (Auto) 0.0 (0.0-0.1) K/mm3 Abs Immat Gran (auto) 0.04 H (0.00-0.031) K/mm3 Absolute Neuts (auto) 8.1 H (1.3-6.7) K/mm3 Absolute Nucleated RBC 0.000 (0.0-0.012) K/mm3 Nucleated RBC % 0.0 (0.0-0.2) % PT 13.2 (11.1-14.7) Seconds INR 1.0 APTT 22.8 (22.3-36.8) Seconds Sodium 120 L 120 L (137-145) mmol/L Potassium 3.8 3.3 L (3.4-5.0) mmol/L Chloride 79 L 82 L (98-107) mmol/L Carbon Dioxide 32 H 29 (22-30) mmol/L Anion Gap 9 9 (4-12) mmol/L BUN 35 H D 30 H (7-17) mg/dL Creatinine 0.83 0.73 (0.7-1.0) mg/dL Estim Creat Clear Calc 27 30 ml/min Estimated GFR > 60 > 60 (59 - ) Glucose 150 H 148 H (65-110) mg/dL Hemoglobin A1c (<5.7) % Calcium 10.5 H 9.2 (8.4-10.2) mg/dL Magnesium (1.6-2.3) mg/dL Total Bilirubin 1.1 (0.2-1.3) mg/dL AST 28 (14-36) U/L ALT 16 (6-35) U/L Alkaline Phosphatase 46 (38-126) U/L Troponin I < 0.012 (0.000-0.034) ng/mL NT-Pro-B Natriuret Pep 325 H (19.9-100) pg/mL Total Protein 7.9 (6.3-8.2) g/dL Albumin 4.5 (3.5-5.1) g/dL TSH (Reflex) (0.465-4.68) uIU/mL Random Cortisol ug/dL Urine Color Yellow (Yellow) Urine Appearance Clear (Clear) Urine pH 6.5 (5.0-9.0) Ur Specific [place] 1.011 (1.001-1.035) Urine Protein 1+ H (Negative) mg/dL Urine Glucose (UA) Negative (Negative) mg/dL Urine Ketones 1+ H (Negative) mg/dL Ur Blood (Man) 1+ H (Negative) Urine Nitrate Negative (Negative) Urine Bilirubin Negative (Negative) Urine Urobilinogen 0.2 (<2.0) mg/dL Leukocyte Esterase Rfl Negative (Negative) VISHAL/UL Urine RBC 6-10 H (0-2) /hpf Urine WBC 0-5 (0-3) /hpf Ur Squamous Epith Cells None seen (Few) /hpf Urine Bacteria None seen /hpf Urine Casts 0-2 Urine Osmolality Pending Ur Random Sodium 105 meq/L Urine Creatinine 23.3 mg/dL 03/28/25 Range/Units 05:10 WBC 8.6 (4.5-10.0) K/mm3 RBC 4.14 L (4.2-5.4) M/mm3 Hgb 12.2 (12.0-15.0) g/dL Hct 35.8 L (37.0-47.0) % MCV 86.5 (80-100) fl MCH 29.5 (26-34) pg MCHC 34.1 (32-36) g/dl RDW 12.7 (11.5-14.5) % Plt Count 157 (150-375) k/mm3 MPV 10.7 H (7.4-10.4) fl Immature Gran % (Auto) (0-0.5) % Neut % (Auto) (45.5-73.1) % Lymph % (Auto) (18.3-44.2) % [place] % (Auto) (2.6-8.5) % Eos % (Auto) (0-4.4) % Baso % (Auto) (0.2-1.2) % Lymph # (Auto) (0.9-3.2) K/mm3 [place] # (Auto) (0.1-0.6) K/mm3 Eos # (Auto) (0-0.3) K/mm3 Baso # (Auto) (0.0-0.1) K/mm3 Abs Immat Gran (auto) (0.00-0.031) K/mm3 Absolute Neuts (auto) (1.3-6.7) K/mm3 Absolute Nucleated RBC (0.0-0.012) K/mm3 Nucleated RBC % (0.0-0.2) % PT (11.1-14.7) Seconds INR APTT (22.3-36.8) Seconds Sodium 120 L (137-145) mmol/L Potassium 3.4 (3.4-5.0) mmol/L Chloride 84 L (98-107) mmol/L Carbon Dioxide 28 (22-30) mmol/L Anion Gap 8 (4-12) mmol/L BUN 24 H (7-17) mg/dL Creatinine 0.66 L (0.7-1.0) mg/dL Estim Creat Clear Calc 30 ml/min Estimated GFR > 60 (59 - ) Glucose 174 H (65-110) mg/dL Hemoglobin A1c 7.4 H (<5.7) % Calcium 9.4 (8.4-10.2) mg/dL Magnesium 1.0 L (1.6-2.3) mg/dL Total Bilirubin (0.2-1.3) mg/dL AST (14-36) U/L ALT (6-35) U/L Alkaline Phosphatase (38-126) U/L Troponin I < 0.012 (0.000-0.034) ng/mL NT-Pro-B Natriuret Pep (19.9-100) pg/mL Total Protein (6.3-8.2) g/dL Albumin (3.5-5.1) g/dL TSH (Reflex) 1.520 (0.465-4.68) uIU/mL Random Cortisol 23.20 ug/dL Urine Color (Yellow) Urine Appearance (Clear) Urine pH (5.0-9.0) Ur Specific [place] (1.001-1.035) Urine Protein (Negative) mg/dL Urine Glucose (UA) (Negative) mg/dL Urine Ketones (Negative) mg/dL Ur Blood (Man) (Negative) Urine Nitrate (Negative) Urine Bilirubin (Negative) Urine Urobilinogen (<2.0) mg/dL Leukocyte Esterase Rfl (Negative) VISHAL/UL Urine RBC (0-2) /hpf Urine WBC (0-3) /hpf Ur Squamous Epith Cells (Few) /hpf Urine Bacteria /hpf Urine Casts Urine Osmolality Ur Random Sodium meq/L Urine Creatinine mg/dL <Deanna Menjivar MD - Last Filed: 03/28/25 18:25> Imaging Data Attestation: I personally reviewed and interpreted this imaging study as follows: < Concha Jones PA-C - Last Filed: 03/28/25 01:19> Radiologist's impression: ITS Impressions Chest X-Ray 03/27/25 21:14 IMPRESSION: No acute cardiopulmonary process. Cervical Spine CT 03/27/25 22:01 IMPRESSION: No acute fracture or traumatic malalignment in the cervical spine. Head CT 03/27/25 22:01 IMPRESSION: No acute intracranial process. <FRIDA Mendez Last Filed: 03/28/25 01:19> ECG Data EKG #1: Attestation: I personally reviewed and interpreted this ECG as follows: <FRIDA Mendez Last Filed: 03/28/25 01:19> ECG completion date: 03/28/25 <FRIDA Mendez Last Filed: 03/28/25 01:19> ECG completion time: 16:47 <FRIDA Mendez Last Filed: 03/28/25 01:19> EKG Interpretation: normal rate (78), sinus rhythm and non-specific ST changes <FRIDA Mendez Last Filed: 03/28/25 01:19> Discharge Plan Discharge Clinical Impression: Acute hyponatremia, Strain of cervical portion of left trapezius muscle, Confusion <FRIDA Mendez Last Filed: 03/28/25 01:19> Patient Disposition: Still a Patient <FRIDA Mendez Last Filed: 03/28/25 01:19> Condition: Stable <FRIDA Mendez Last Filed: 03/28/25 01:19>
[2025-03-27] MEDS: SODIUM CHLORIDE 0.9% IV 1,000 ML 999 ML IV CONT (22:14)
[2025-03-27 22:16] VITALS: BP 160/74; PULSE 72; RESP 16; O2SAT 100
[2025-03-27] MEDS: ACETAMINOPHEN 325 MG TABLET 650 MG PO (23:19)
[2025-03-27 23:50] LABS: Anion Gap 9 mmol/L (4-12); Blood Urea Nitrogen 30 mg/dL (7-17); Calcium 9.2 mg/dL (8.4-10.2); Carbon Dioxide 29 mmol/L (22-30); Chloride 82 mmol/L (98-107); Estimated CRCL calculation 30 ml/min; Estimated Glomerular Filt Rate > 60; Glucose 148 mg/dL (65-110); Potassium 3.3 mmol/L (3.4-5.0); Sodium 120 mmol/L (137-145)
[2025-03-28] VITALS (14 sets, daily range): BP systolic 95–154; BP diastolic 49–63; PULSE 63–80; RESP 16–17; TEMP 36.4–37.1; O2SAT 94–98; BMI 15.8
[2025-03-28 02:09] LABS: Add Urine Microscopic? YES; Appearance Urine Clear (Clear); Glucose Urine UA Negative (Negative); Leukocyte Esterase Ur Negative LEU/UL (Negative); Nitrate Urine Negative (Negative); Non Pathogenic Casts 0-2; Specific Grav Ur 1.011 (1.001-1.035)
[2025-03-28] MEDS: SODIUM CHLORIDE 0.9% IV 1,000 ML 75 ML IV CONT (02:09)
--- NOTE | 2025-03-28 03:31 | PC.NURSE ---
PATIENT ARRIVED ON 3 [facility] AT 0330
--- NOTE | 2025-03-28 04:00 | PM.IMHP ---
H&P: HPI History of Present Illness Date/Time: 03/28/25 05:00 Chief Complaint: Left-sided neck pain with concerns for possible heart attack. Narrative: This is a pleasant 89-year-old female with history of coronary artery disease and stent, hypertension, hyperlipidemia, type 2 diabetes mellitus, and chronic hyponatremia who presented to the emergency department via private vehicle with complaints of left-sided neck pain and concerns for possible heart attack. Two days ago she went to the local library and when she walked in the door she lost her balance and fell forward onto the ground, hitting the top of her head. She has had some pain throughout the left side of her neck and left upper back since that time which is worse with movement and touch. Her daughter is a physician admission again and she called and told her that she was having this pain. Due to her cardiac history, she was encouraged to come in to the ED to rule out anginal equivalent. She did not sustain any other injuries in the fall and denies loss of consciousness. She also denies paresthesias and weakness of the extremities. She has not had any chest pain, exertional or otherwise, and she also denies shortness of breath, nausea, vomiting, sweats, lower extremity edema, and calf pain. In the ED: Her blood pressure was 163/82 on arrival. The remainder of her vital signs were within normal limits. Labs are significant for WBC count of 10.7, sodium 120, potassium 3.3, chloride 82, BUN 30, creatinine 0.73, glucose 148, troponin less than 0.012. EKG showed sinus rhythm without concerning ST segment changes. Urinalysis was positive for 1+ protein, 1+ ketones, 1+ blood, 6 to 10 RBC. Head and cervical spine CTs were without acute findings. Chest x-ray was normal. She was given an L normal saline and she is being admitted in this setting for further evaluation of hyponatremia. Review of Systems Review of Systems: 12 systems were reviewed and are negative except for as per HPI. [facility] Past Medical History Medical History Hyperlipemia Coronary artery disease Chronic hyponatremia Thyroid nodule Breast cancer Type 2 diabetes mellitus without complications Hypertension Anxiety Surgical History Surgical History History of coronary artery stent placement History of cataract extraction with lens replacement History of lumpectomy of left breast History of total mastectomy of right breast Family History Family History Mother Diabetes mellitus Social History Social History Social History: Healthcare power of claim attorney: Dr. Humera Gotti ([phone]). Code status: Full code. Smoking status: Never smoker Alcohol intake: never Substance use: never Substance use type: does not use Do You Feel Safe in your Home?: Yes Lack of Transportation: No Lack of Food: Never True Current Housing: I Have Housing Concerned About Future Housing: No Difficulty Paying Gas/Electric Bills: No Difficulty Paying for Meds: No Currently Unemployed: No Education: Master's Degree or Higher Difficulty w/ Childcare or Family Care: No Additional living arrangements comments: The patient lives in her own home in [place]. Occupation/Education: retired Spiritual care concerns: No Meds Home Medications and Allergies Home Medications ?Medication ?Instructions ?Recorded ?Confirmed ?Type magnesium 200 mg tablet 200 mg PO DAILY 04/19/22 03/28/25 History mecobalamin (vitamin B12) 1,000 1,000 mcg PO DAILY 04/19/22 03/28/25 History mcg chewable tablet metoprolol succinate 100 mg 100 mg PO DAILY 04/19/22 03/28/25 History tablet,extended release 24 hr cholecalciferol (vitamin D3) 25 25 mcg PO DAILY #90 caps 06/29/22 03/28/25 Rx mcg (1,000 unit) capsule atorvastatin 20 mg tablet 20 mg PO DAILY #90 tabs 07/03/24 03/28/25 Rx aspirin 81 mg capsule 81 mg PO DAILY #90 caps 09/01/24 03/28/25 Rx blood sugar diagnostic (OneTouch #100 ea 02/03/25 03/28/25 Rx Verio test strips) blood-glucose meter (OneTouch #1 ea 02/03/25 03/28/25 Rx Verio Flex Start kit) lancets 32 gauge (Easy Touch #100 ea 02/03/25 03/28/25 Rx Lancets) metformin 500 mg tablet 500 mg PO DAILY #90 tabs 03/03/25 03/28/25 Rx sitagliptin phosphate 25 mg tablet 25 mg PO DAILY #90 tabs 03/03/25 03/28/25 Rx (Januvia) Allergies Allergy/AdvReac Type Severity Reaction Status Date / Time Latex, Natural Rubber Allergy Mild Redness of Verified 03/28/25 03:38 Skin Penicillins Allergy Unknown Verified 03/28/25 03:38 Vital Signs Vital Signs - 24 hr 03/27/25 16:37 03/27/25 22:16 03/28/25 03:25 Temperature 97.8 F 97.6 F Pulse Rate 79 72 74 Respiratory Rate 18 16 17 Blood Pressure 163/82 H 160/74 H 154/59 H Pulse Oximetry 98 100 96 Oxygen Delivery Room Air Exam Narrative: General: Very thin, frail elderly female in the semi-Gupta position in bed. Weight: 38.1 kg. BMI: 15.9. HEENT: Small bump on the top of the right scalp near hairline. PERRL, EOMI. Sclera anicteric. Moist mucous membranes. Neck: Supple. She is tender to palpation over the left upper trapezius muscle. Respiratory: Lungs are clear to auscultation bilaterally. Cardiovascular: Regular rate and rhythm with S1-S2. Soft murmur at the left sternal border. Chest: Radiation changes on the right chest with scattered, chronic ulcerative areas. Gastrointestinal: Abdomen is soft, scaphoid, nontender, and nondistended with positive bowel sounds. Skin: Warm and dry. Extremities: No cyanosis, clubbing, or edema. Radial and pedal pulses intact. Neurological: Alert. Cranial nerves grossly intact. No gross focal deficits to casual conversation. Psychiatric: Pleasant and cooperative with appropriate mood and affect. Seems to be a bit forgetful. H&P: Results Labs Labs: Short CBC 03/27/25 Range/Units 21:05 WBC 10.7 H (4.5-10.0) K/mm3 Hgb 13.3 (12.0-15.0) g/dL Hct 39.2 (37.0-47.0) % Plt Count 193 (150-375) k/mm3 [facility] 03/27/25 03/27/25 21:05 23:33 Sodium 120 L 120 L Potassium 3.8 3.3 L Chloride 79 L 82 L Carbon Dioxide 32 H 29 BUN 35 H D 30 H Creatinine 0.83 0.73 Glucose 150 H 148 H Calcium 10.5 H 9.2 Cardiac Enzymes 03/27/25 Range/Units 21:05 Troponin I < 0.012 (0.000-0.034) ng/mL Liver Function 03/27/25 Range/Units 21:05 Total Bilirubin 1.1 (0.2-1.3) mg/dL AST 28 (14-36) U/L ALT 16 (6-35) U/L Alkaline Phosphatase 46 (38-126) U/L Albumin 4.5 (3.5-5.1) g/dL Urine 03/28/25 Range/Units 01:52 Urine Color Yellow (Yellow) Urine Appearance Clear (Clear) Urine pH 6.5 (5.0-9.0) Ur Specific [place] 1.011 (1.001-1.035) Urine Protein 1+ H (Negative) mg/dL Urine Glucose (UA) Negative (Negative) mg/dL Imaging Chest X-Ray 03/27/25 21:14 IMPRESSION: No acute cardiopulmonary process. Cervical Spine CT 03/27/25 22:01 IMPRESSION: No acute fracture or traumatic malalignment in the cervical spine. Head CT 03/27/25 22:01 IMPRESSION: No acute intracranial process. Assessment and Plan Assessment and plan (1) Hyponatremia: Code(s): E87.1 - Hypo-osmolality and hyponatremia Status: Acute (2) Strain of cervical portion of left trapezius muscle: Code(s): S16.1XXA - Strain of muscle, fascia and tendon at neck level, initial encounter Status: Acute (3) Coronary artery disease: Code(s): I25.10 - Atherosclerotic heart disease of [place] coronary artery without angina pectoris Status: Acute (4) Type 2 diabetes mellitus: Code(s): E11.9 - Type 2 diabetes mellitus without complications Status: Acute (5) Hypertension: Qualifiers: Hypertension type: primary hypertension Qualified Code(s): I10 - Essential (primary) hypertension Code(s): I10 - Essential (primary) hypertension Status: Acute Plan The patient presented to the emergency department with complaints of left-sided neck pain and concerns for possible heart attack as detailed in HPI. Labs, imaging, EKG, and all reports were personally reviewed. The patient had a fall 2 days ago and has had pain in the left side of her neck and upper trapezius muscle since that time. She has reproducible pain on examination and likely has a muscle strain related to that fall. While she does have a history of coronary artery disease, this is clearly musculoskeletal and not an anginal equivalent. Her initial troponin was negative an EKG revealed a sinus rhythm without concerning ST segment changes. She was found to have acute on chronic hyponatremia. Her baseline sodium is in the low 130s and today it was 120. Etiology is not entirely clear. She is euvolemic on exam. Pseudohyponatremia is unlikely. It is possible that this could be SIADH related to the neck pain. She is very thin and I wonder if her diet is bland. She says that she drinks 2, 8 oz glasses of water a day and no more. Urine and serum osmolalities, urine sodium and creatinine, and TSH are pending for further evaluation. Blood pressures were reviewed and they have been running high, in the 150s to 160s systolic. She is only on metoprolol succinate 100 mg daily. We will continue to monitor her blood pressures closely and consider adding additional antihypertensives depending on how she trends however ambulatory blood pressure monitoring and close follow-up with her primary care provider would probably be best. Continue sitagliptin. Initiate sliding scale insulin, Accu-Cheks, and hypoglycemic protocol. Check hemoglobin A1c. Her home medications will be reviewed and resumed as appropriate. Findings and treatment plan were discussed with the patient. Questions were solicited and answered to satisfaction. The patient's medical management will be taken over by the hospitalist team in a.m. Quality VTE Prophylaxis VTE prophylaxis: pharmacologic ordered The patient has been admitted under observation status. Hospitalist [facility] Advance Care Plan I have confirmed that the patient's Advanced Care Plan is present, code status is documented, or surrogate decision maker is listed in patient medical record.: Yes Medication Reconciliation I have utilized all available resources to obtain, update and review the patients current medications (includes all prescriptions, OTC, herbals, cannabis, and nutritional supplements).: Yes
[2025-03-28 05:36] LABS: Hematocrit 35.8 % (37.0-47.0); Hemoglobin 12.2 g/dL (12.0-15.0); Mean Corpuscular HGB Conc 34.1 g/dl (32-36); Mean Corpuscular Hemoglobin 29.5 pg (26-34); Mean Corpuscular Volume 86.5 fl (80-100); Platelet Count Result 157 k/mm3 (150-375); Red Blood Count 4.14 M/mm3 (4.2-5.4); White Blood Count 8.6 K/mm3 (4.5-10.0)
[2025-03-28 05:53] LABS: Hemoglobin A1C 7.4 % (<5.7)
[2025-03-28 05:59] LABS: Anion Gap 8 mmol/L (4-12); Blood Urea Nitrogen 24 mg/dL (7-17); Calcium 9.4 mg/dL (8.4-10.2); Carbon Dioxide 28 mmol/L (22-30); Chloride 84 mmol/L (98-107); Estimated CRCL calculation 30 ml/min; Estimated Glomerular Filt Rate > 60; Glucose 174 mg/dL (65-110); Magnesium 1.0 mg/dL (1.6-2.3); Potassium 3.4 mmol/L (3.4-5.0); Sodium 120 mmol/L (137-145)
[2025-03-28 06:38] LABS: Troponin I < 0.012 ng/mL (0.000-0.034)
[2025-03-28 06:48] LABS: Thyroid Stimulating Hormone Reflex 1.520 uIU/mL (0.465-4.68)
--- NOTE | 2025-03-28 07:57 | PM.IMPN ---
Progress Note: A&P Assessment and Plan (1) Hyponatremia: Code(s): E87.1 - Hypo-osmolality and hyponatremia Status: Acute Assessment and Plan: Acute on chronic hyponatremia, Baseline Na usually in the low 130s In ED: Na 120 Pseudohyponatremia unlikely, possible element of SIADH given fall Urine/serum osmolalities, urine sodium and creatinine, and TSH pending Nephro consult Continue holding HCTZ H20 restrict Lasix plus salt tablets 3% NS if symptomatic (2) Strain of cervical portion of left trapezius muscle: Code(s): S16.1XXA - Strain of muscle, fascia and tendon at neck level, initial encounter Status: Acute Assessment and Plan: Fell 2 days ago at library, lost balance, hit top of head. Denies LOC Has had left sided neck pain since then - patient suspects possible cardiac event given hx Pain is reproducible on exam EKG nsr, troponin negative Less likely cardiac in nature - more likely 2/2 musculoskeletal (3) Type 2 diabetes mellitus: Code(s): E11.9 - Type 2 diabetes mellitus without complications Status: Acute Assessment and Plan: Hypoglycemia protocol POC blood glucose ACHS Home medication - Sitagliptin - continue, hold metformin Correct regimen ordered - low dose TIDWM and HS A1C 7.4% (4) Hypertension: Qualifiers: Hypertension type: primary hypertension Qualified Code(s): I10 - Essential (primary) hypertension Code(s): I10 - Essential (primary) hypertension Status: Acute Assessment and Plan: Patient's blood pressure was reviewed on 03/28 Blood pressure remains well controlled. Will continue current medications Metoprolol 100mg (5) Coronary artery disease: Code(s): I25.10 - Atherosclerotic heart disease of [place] coronary artery without angina pectoris Status: Acute Subjective Date/time seen: 03/28/25 07:57 Interval history: 89-year-old female with history of coronary artery disease and stent, hypertension, hyperlipidemia, type 2 diabetes mellitus, and chronic hyponatremia who presented to the emergency department via private vehicle with complaints of left-sided neck pain and concerns for possible heart attack. 03/28/2025 Review of Systems Review of Systems: 12 systems were reviewed and are negative except for as per HPI. Exam Narrative: General: Very thin, frail elderly female in the semi-Gupta position in bed. Weight: 38.1 kg. BMI: 15.9. HEENT: Small bump on the top of the right scalp near hairline. PERRL, EOMI. Sclera anicteric. Moist mucous membranes. Neck: Supple. She is tender to palpation over the left upper trapezius muscle. Respiratory: Lungs are clear to auscultation bilaterally. Cardiovascular: Regular rate and rhythm with S1-S2. Soft murmur at the left sternal border. Chest: Radiation changes on the right chest with scattered, chronic ulcerative areas. Gastrointestinal: Abdomen is soft, scaphoid, nontender, and nondistended with positive bowel sounds. Skin: Warm and dry. Extremities: No cyanosis, clubbing, or edema. Radial and pedal pulses intact. Neurological: Alert. Cranial nerves grossly intact. No gross focal deficits to casual conversation. Psychiatric: Pleasant and cooperative with appropriate mood and affect. Seems to be a bit forgetful. Objective Data Vital Signs Vital Signs: Vital Signs - 24 hr 03/27/25 16:37 03/27/25 22:16 03/28/25 03:25 Temperature 97.8 F 97.6 F Pulse Rate 79 72 74 Respiratory Rate 18 16 17 Blood Pressure 163/82 H 160/74 H 154/59 H Pulse Oximetry 98 100 96 Oxygen Delivery Room Air 03/28/25 03:30 03/28/25 04:00 03/28/25 06:00 Temperature 97.8 F Pulse Rate 73 73 Respiratory Rate 16 Blood Pressure 134/50 L Pulse Oximetry 96 Oxygen Delivery Room Air 03/28/25 06:10 03/28/25 06:13 03/28/25 06:15 Temperature 97.8 F 97.8 F 97.8 F Pulse Rate 73 74 80 Respiratory Rate 16 16 16 Blood Pressure 134/50 L 117/50 L 95/49 L Pulse Oximetry 96 98 97 Oxygen Delivery Intake/Output Intake/Output: Intake & Output 03/25/25 03/26/25 03/27/25 03/28/25 23:59 23:59 23:59 23:59 Intake Total 1000 Balance 1000 Meds/Results Medications: Active Medications Generic Name Dose Route Start Last Admin Trade Name Freq PRN Reason Stop Dose Admin Acetaminophen 650 mg 03/28/25 01:16 Acetaminophen 325 Mg Tablet PO Q4H PRN Mild Pain (1-3) or Fever Aspirin 81 mg 03/28/25 08:00 Aspirin 81 Mg Chewable Tablet PO DAILY@0800 [facility] Atorvastatin Calcium 20 mg 03/28/25 09:00 Atorvastatin 20 Mg Tablet PO DAILY [facility] Cyanocobalamin 1,000 mcg 03/28/25 09:00 Cyanocobalamin 1,000 Mcg Tablet PO QAM [facility] Dextrose 12.5 gm 03/28/25 01:16 Dextrose 50% 25 Gm/50 Ml Syringe IV PUSH PRN PRN Hypoglycemia Protocol Enoxaparin Sodium 30 mg 03/28/25 09:00 Enoxaparin 30 Mg/0.3 Ml Syringe SUB-Q DAILY [facility] Glucagon 1 mg 03/28/25 01:16 Glucagon For Inj 1 Mg Vial IM PRN PRN Hypoglycemia Protocol Glucose 15 gm 03/28/25 01:16 Glucose Oral Gel 15 Gm Of Glucse In 37.5 Gm Tube PO PRN PRN Hypoglycemia Protocol Dextrose 1,000 mls @ 100 mls/hr 03/28/25 01:16 Dextrose 5% 1,000 Ml IVPB PRN PRN Hypoglycemia Protocol Magnesium Sulfate 4 gm in 100 mls @ 25 mls/hr 03/28/25 07:09 Magnesium Sulf 4 Gm/[id number] IVPB 03/28/25 11:08 ONCE ONE Insulin Aspart 2 - 5 units 03/28/25 08:00 Insulin Aspart (*Bkc) 100 Units/Ml SUB-Q TIDWM [facility] Protocol Insulin Aspart 1 - 2 units 03/28/25 21:00 Insulin Aspart (*Bkc) 100 Units/Ml SUB-Q HS [facility] Protocol Magnesium Oxide 200 mg 03/28/25 09:00 Magnesium Oxide 200 Mg Tablet PO DAILY [facility] Metformin HCl 500 mg 03/28/25 09:00 Metformin Hcl 500 Mg Tablet PO DAILY [facility] Metoprolol Succinate 100 mg 03/28/25 09:00 Metoprolol Succinate Ext Rel 100 Mg Tabcr PO DAILY [facility] Ondansetron HCl 4 mg 03/28/25 01:16 Ondansetron Inj 4 Mg/2 Ml Vial IV PUSH Q4H PRN Nausea Sitagliptin Phosphate 25 mg 03/28/25 09:00 Sitagliptin Phosphate 25 Mg Tablet PO DAILY [facility] Vitamin D 25 mcg 03/28/25 09:00 Cholecalciferol (Vitamin D3) 25 Mcg (1,000 Units) Tablet PO DAILY [facility] Radiology Results: ITS Impressions Chest X-Ray 03/27/25 21:14 IMPRESSION: No acute cardiopulmonary process. Cervical Spine CT 03/27/25 22:01 IMPRESSION: No acute fracture or traumatic malalignment in the cervical spine. Head CT 03/27/25 22:01 IMPRESSION: No acute intracranial process. Labs Labs: Laboratory Results - last 24 hr 03/27/25 03/27/25 03/28/25 21:05 23:33 01:52 WBC 10.7 H RBC 4.55 Hgb 13.3 Hct 39.2 MCV 86.2 MCH 29.2 MCHC 33.9 RDW 13.0 Plt Count 193 MPV 10.4 Immature Gran % (Auto) 0.4 Neut % (Auto) 75.6 H Lymph % (Auto) 12.6 L [place] % (Auto) 11.1 H Eos % (Auto) 0.1 Baso % (Auto) 0.2 Lymph # (Auto) 1.35 [place] # (Auto) 1.2 H Eos # (Auto) 0.0 Baso # (Auto) 0.0 Abs Immat Gran (auto) 0.04 H Absolute Neuts (auto) 8.1 H Absolute Nucleated RBC 0.000 Nucleated RBC % 0.0 PT 13.2 INR 1.0 APTT 22.8 Sodium 120 L 120 L Potassium 3.8 3.3 L Chloride 79 L 82 L Carbon Dioxide 32 H 29 Anion Gap 9 9 BUN 35 H D 30 H Creatinine 0.83 0.73 Estim Creat Clear Calc 27 30 Estimated GFR > 60 > 60 Glucose 150 H 148 H Hemoglobin A1c Calcium 10.5 H 9.2 Magnesium Total Bilirubin 1.1 AST 28 ALT 16 Alkaline Phosphatase 46 Troponin I < 0.012 NT-Pro-B Natriuret Pep 325 H Total Protein 7.9 Albumin 4.5 TSH (Reflex) Urine Color Yellow Urine Appearance Clear Urine pH 6.5 Ur Specific [place] 1.011 Urine Protein 1+ H Urine Glucose (UA) Negative Urine Ketones 1+ H Ur Blood (Man) 1+ H Urine Nitrate Negative Urine Bilirubin Negative Urine Urobilinogen 0.2 Leukocyte Esterase Rfl Negative Urine RBC 6-10 H Urine WBC 0-5 Ur Squamous Epith Cells None seen Urine Bacteria None seen Urine Casts 0-2 Ur Random Sodium 105 Urine Creatinine 23.3 03/28/25 05:10 WBC 8.6 RBC 4.14 L Hgb 12.2 Hct 35.8 L MCV 86.5 MCH 29.5 MCHC 34.1 RDW 12.7 Plt Count 157 MPV 10.7 H Immature Gran % (Auto) Neut % (Auto) Lymph % (Auto) [place] % (Auto) Eos % (Auto) Baso % (Auto) Lymph # (Auto) [place] # (Auto) Eos # (Auto) Baso # (Auto) Abs Immat Gran (auto) Absolute Neuts (auto) Absolute Nucleated RBC Nucleated RBC % PT INR APTT Sodium 120 L Potassium 3.4 Chloride 84 L Carbon Dioxide 28 Anion Gap 8 BUN 24 H Creatinine 0.66 L Estim Creat Clear Calc 30 Estimated GFR > 60 Glucose 174 H Hemoglobin A1c 7.4 H Calcium 9.4 Magnesium 1.0 L Total Bilirubin AST ALT Alkaline Phosphatase Troponin I < 0.012 NT-Pro-B Natriuret Pep Total Protein Albumin TSH (Reflex) 1.520 Urine Color Urine Appearance Urine pH Ur Specific [place] Urine Protein Urine Glucose (UA) Urine Ketones Ur Blood (Man) Urine Nitrate Urine Bilirubin Urine Urobilinogen Leukocyte Esterase Rfl Urine RBC Urine WBC Ur Squamous Epith Cells Urine Bacteria Urine Casts Ur Random Sodium Urine Creatinine Quality VTE Prophylaxis VTE prophylaxis: pharmacologic ordered
[2025-03-28] MEDS: CYANOCOBALAMIN 1,000 MCG TABLET 1000 MCG PO (08:22)
[2025-03-28] MEDS: CHOLECALCIFEROL (VITAMIN D3) 25 MCG (1,000 UNITS) TABLET PO (08:22)
[2025-03-28] MEDS: ATORVASTATIN 20 MG TABLET PO (08:22)
[2025-03-28] MEDS: ASPIRIN 81 MG CHEWABLE TABLET PO (08:22)
[2025-03-28] MEDS: ENOXAPARIN 30 MG/0.3 ML SYRINGE SUB-Q (08:23)
[2025-03-28] MEDS: MAGNESIUM OXIDE 200 MG TABLET PO (08:23)
[2025-03-28] MEDS: METOPROLOL SUCCINATE EXT REL 100 MG TABCR PO (08:23)
[2025-03-28] MEDS: MAGNESIUM SULF 4 GM/WATER100ML 4 GM/100 ML BAG IVPB (08:24)
--- NOTE | 2025-03-28 09:12 | PM.CNNEP ---
Assessment and Plan Assessment and plan (1) Hyponatremia: Code(s): E87.1 - Hypo-osmolality and hyponatremia Status: Acute Assessment and Plan: sodium level is 120. Urine sodium is 105. 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 The patient was on hydrochlorothiazide as of March 04. This has been held. This sodium level has been low for a long time. It is lower now. Possibly she was drinking extra fluid? She does not seem dehydrated. Mental status is good. She is very sharp. She remembers recent and remote events well. Will check a TSH and a cortisol as well as an SPEP plus osmolalities. Hydrochlorothiazide has already been stopped. Will give Lasix plus salt tablets see if we can get the sodium moving upwards. Consider 3% saline if the she becomes symptomatic. Discussed with Dr. Hurd (2) Type 2 diabetes mellitus: Code(s): E11.9 - Type 2 diabetes mellitus without complications Status: Acute Assessment and Plan: the patient is on Accu-Cheks plus insulin sliding scale per hospitalists. (3) Coronary artery disease: Code(s): I25.10 - Atherosclerotic heart disease of [place] coronary artery without angina pectoris Status: Acute Assessment and Plan: No chest pain. Troponins were negative. EKG was normal (4) Confusion: Code(s): R41.0 - Disorientation, unspecified Status: Acute Assessment and Plan: the patient has a history of dementia in the records from past notes by primary care physician (5) Hyperlipemia: Code(s): E78.5 - Hyperlipidemia, unspecified Status: Acute Assessment and Plan: the patient is on atorvastatin (6) Dementia: Qualifiers: Alzheimer's disease onset: unspecified onset Dementia behavioral or psychological symptom: without behavioral, psychotic, or mood disturbance or anxiety Dementia severity: moderate Dementia type: Alzheimer's Qualified Code(s): G30.9 - Alzheimer's disease, unspecified; F02.B0 - Dementia in other diseases classified elsewhere, moderate, without behavioral disturbance, psychotic disturbance, mood disturbance, and anxiety Code(s): F03.90 - Unspecified dementia, unspecified severity, without behavioral disturbance, psychotic disturbance, mood disturbance, and anxiety Status: Acute (7) Breast cancer: Code(s): C50.919 - Malignant neoplasm of unspecified site of unspecified female breast Status: Acute Assessment and Plan: remote history of breast cancer in 2013. This was warm only positive and she received 5 years of hormonal therapy (8) Hypertension: Qualifiers: Hypertension type: primary hypertension Qualified Code(s): I10 - Essential (primary) hypertension Code(s): I10 - Essential (primary) hypertension Status: Acute Assessment and Plan: blood pressure is quite variable, ranging from 95-163. Early on it was high possibly from pain and excitement of going to the ER. It seems to have settled down in a relatively good range History of Present Illness Reason for Consult Consult date: 03/28/25 Chief Complaint Chief complaint: hyponatremia, confusion, falls History of Present Illness Narrative: Jessica is a very pleasant 81-year-old lady who has multiple medical problems including chronic hyponatremia, hyperlipidemia, coronary disease, hypertension, diabetes, breast cancer, thyroid nodule, anxiety. The patient came to the hospital because she fell. She hit her head. After that she had headache neck pain also upper back pain. She was instructed by her daughter, a physician, to go to the ER. In the ER she was evaluated. Her blood pressure was high. Her sodium was low. X-rays were unremarkable overnight she received some normal saline. Her sodium started out at 120 and is 120 again today. her sodium level has been between 130 and 135 for about 3 years. The patient was on sertraline home but these have been discontinued. As of early February, she was off this medication. she has been on hydrochlorothiazide however. Head CT is negative chest x-ray is negative she has a history of breast cancer and She follows with [facility] and there does not seem to be any active issues going on now according to the note last fall Review of Systems Constitutional: Constitutional: Reports no additional constitutional complaints Eyes: Eyes: Reports no additional eye complaints ENT: Reports system reviewed and no additional complaints, except as documented Cardiovascular: Cardiovascular: Reports no additional cardiovascular complaints Respiratory: Respiratory: Reports no additional respiratory complaints Gastrointestinal: Gastrointestinal: Reports no additional gastrointestinal complaints Genitourinary: Genitourinary: Reports no additional female genitourinary complaints Musculoskeletal: Musculoskeletal: Reports no additional musculoskeletal complaints Integumentary/Breasts: Skin/Breast: Reports system reviewed and no additional complaints, except as docu Neurologic: Reports system reviewed and no additional complaints, except as documented Psychiatric: Psychiatric: Reports no additional psychiatric complaints Endocrine: Endocrine: Reports no additional endocrine complaints [facility] Past Medical History Medical History Coronary artery disease Chronic hyponatremia Hyperlipemia Thyroid nodule Breast cancer Type 2 diabetes mellitus without complications Hypertension Anxiety Surgical History Surgical History History of coronary artery stent placement History of cataract extraction with lens replacement History of lumpectomy of left breast History of total mastectomy of right breast Family History Family History Mother Diabetes mellitus Social History Social History Social History: Healthcare power of erisa attorney: Dr. Humrea Gotti ([phone]). Code status: Full code. Smoking status: Never smoker Alcohol intake: never Substance use: never Substance use type: does not use Do You Feel Safe in your Home?: Yes Lack of Transportation: No Lack of Food: Never True Current Housing: I Have Housing Concerned About Future Housing: No Difficulty Paying Gas/Electric Bills: No Difficulty Paying for Meds: No Currently Unemployed: No Education: Master's Degree or Higher Difficulty w/ Childcare or Family Care: No Additional living arrangements comments: The patient lives in her own home in [place]. Occupation/Education: retired Spiritual care concerns: No Meds Home Medications and Allergies Home Medications ?Medication ?Instructions ?Recorded ?Confirmed ?Type magnesium 200 mg tablet 200 mg PO DAILY 04/19/22 03/28/25 History mecobalamin (vitamin B12) 1,000 1,000 mcg PO DAILY 04/19/22 03/28/25 History mcg chewable tablet metoprolol succinate 100 mg 100 mg PO DAILY 04/19/22 03/28/25 History tablet,extended release 24 hr cholecalciferol (vitamin D3) 25 25 mcg PO DAILY #90 caps 06/29/22 03/28/25 Rx mcg (1,000 unit) capsule atorvastatin 20 mg tablet 20 mg PO DAILY #90 tabs 07/03/24 03/28/25 Rx aspirin 81 mg capsule 81 mg PO DAILY #90 caps 09/01/24 03/28/25 Rx blood sugar diagnostic (OneTouch #100 ea 02/03/25 03/28/25 Rx Verio test strips) blood-glucose meter (OneTouch #1 ea 02/03/25 03/28/25 Rx Verio Flex Start kit) lancets 32 gauge (Easy Touch #100 ea 02/03/25 03/28/25 Rx Lancets) metformin 500 mg tablet 500 mg PO DAILY #90 tabs 03/03/25 03/28/25 Rx sitagliptin phosphate 25 mg tablet 25 mg PO DAILY #90 tabs 03/03/25 03/28/25 Rx (Januvia) Allergies Allergy/AdvReac Type Severity Reaction Status Date / Time Latex, Natural Rubber Allergy Mild Redness of Verified 03/28/25 03:38 Skin Penicillins Allergy Unknown Verified 03/28/25 03:38 Vital Signs Vital Signs - 24 hr 03/27/25 16:37 03/27/25 22:16 03/28/25 03:25 Temperature 97.8 F 97.6 F Pulse Rate 79 72 74 Respiratory Rate 18 16 17 Blood Pressure 163/82 H 160/74 H 154/59 H Pulse Oximetry 98 100 96 Oxygen Delivery Room Air 03/28/25 03:30 03/28/25 04:00 03/28/25 06:00 Temperature 97.8 F Pulse Rate 73 73 Respiratory Rate 16 Blood Pressure 134/50 L Pulse Oximetry 96 Oxygen Delivery Room Air 03/28/25 06:10 03/28/25 06:13 03/28/25 06:15 Temperature 97.8 F 97.8 F 97.8 F Pulse Rate 73 74 80 Respiratory Rate 16 16 16 Blood Pressure 134/50 L 117/50 L 95/49 L Pulse Oximetry 96 98 97 Oxygen Delivery 03/28/25 08:21 03/28/25 08:23 Temperature Pulse Rate 71 71 Respiratory Rate Blood Pressure 132/54 L Pulse Oximetry 94 Oxygen Delivery Exam Narrative: Exam Narrative: Well developed well-nourished female in no acute distress Skin is warm and dry without rash Head normocephalic atraumatic Eyes normal sclerae and conjunctivae Mouth normal lips teeth and gums Neck no nodes no thyromegaly no carotid bruits Axillae no nodes Back no CVA tenderness Lungs symmetric and clear to auscultation and percussion Heart regular rate and rhythm without rub or gallop Abdomen bowel sounds positive soft nontender, no HSM, masses, or bruits. Extremities no cyanosis, clubbing, or edema Pulses 2+ equal in radial arteries Psychological not anxious or depressed Neuro alert and oriented x3 motor 5/5 cranial nerves 2-12 intact reflexes 2+ and equal in the biceps and patellar tendons cerebellar normal rapid alternating movements Results Lab Results 03/28/25 05:10 03/28/25 05:10 Lab results: Most recent lab results Calcium 9.4 mg/dL (8.4-10.2) 03/28/25 05:10 Magnesium 1.0 mg/dL (1.6-2.3) L 03/28/25 05:10 Urine Creatinine 23.3 mg/dL 03/28/25 01:52
[2025-03-28 16:27] LABS: Sodium 120 mmol/L (137-145)
[2025-03-28] MEDS: FUROSEMIDE 20 MG TABLET PO (17:30)
[2025-03-28] MEDS: SODIUM CHLORIDE 1 GM TABLET PO (17:30)
[2025-03-28] MEDS: ACETAMINOPHEN 325 MG TABLET 650 MG PO (20:37)
[2025-03-29] VITALS (10 sets, daily range): BP systolic 104–145; BP diastolic 47–55; PULSE 62–93; RESP 16; TEMP 36.5–36.8; O2SAT 94–99; BMI 17.3
[2025-03-29 05:14] LABS: Hematocrit 37.0 % (37.0-47.0); Hemoglobin 12.7 g/dL (12.0-15.0); Mean Corpuscular HGB Conc 34.3 g/dl (32-36); Mean Corpuscular Hemoglobin 29.6 pg (26-34); Mean Corpuscular Volume 86.2 fl (80-100); Platelet Count Result 167 k/mm3 (150-375); Red Blood Count 4.29 M/mm3 (4.2-5.4); White Blood Count 6.0 K/mm3 (4.5-10.0)
[2025-03-29 05:28] LABS: Anion Gap 8 mmol/L (4-12); Blood Urea Nitrogen 18 mg/dL (7-17); Calcium 9.5 mg/dL (8.4-10.2); Carbon Dioxide 35 mmol/L (22-30); Chloride 84 mmol/L (98-107); Estimated CRCL calculation 28 ml/min; Estimated Glomerular Filt Rate > 60; Glucose 119 mg/dL (65-110); Magnesium 1.5 mg/dL (1.6-2.3); Potassium 3.0 mmol/L (3.4-5.0); Sodium 127 mmol/L (137-145)
[2025-03-29] MEDS: POTASSIUM CHLORIDE 20 MEQ ER TABLET PO (06:05)
[2025-03-29] MEDS: MAGNESIUM SULF 2 GM/WATER 50ML 2 GM/50 ML BAG IVPB (06:05)
[2025-03-29] MEDS: POTASSIUM CHLORIDE 20 MEQ ER TABLET 40 MEQ PO (06:05)
--- NOTE | 2025-03-29 08:13 | P.PNIM_ITS ---
Progress Note: A&P Assessment and Plan (1) Hyponatremia: Code(s): E87.1 - Hypo-osmolality and hyponatremia Status: Acute Assessment and Plan: * Acute on chronic hyponatremia, * Baseline Na usually in the low 130s * In ED: Na 120 * Pseudohyponatremia unlikely, possible element of SIADH given fall * Urine/serum osmolalities, urine sodium and creatinine, and TSH pending * Nephro consult * Continue holding HCTZ * H20 restrict * Lasix plus salt tablets * 3% NS if symptomatic nephrology following (2) Strain of cervical portion of left trapezius muscle: Code(s): S16.1XXA - Strain of muscle, fascia and tendon at neck level, initial encounter Status: Acute Assessment and Plan: * Fell 2 days ago at library, lost balance, hit top of head. Denies LOC * Has had left sided neck pain since then - patient suspects possible cardiac event given hx * Pain is reproducible on exam * EKG nsr, troponin negative * Less likely cardiac in nature - more likely 2/2 musculoskeletal (3) Type 2 diabetes mellitus: Code(s): E11.9 - Type 2 diabetes mellitus without complications Status: Acute Assessment and Plan: * Hypoglycemia protocol * POC blood glucose ACHS * Home medication - Sitagliptin - continue, hold metformin * Correct regimen ordered - low dose TIDWM and HS * A1C 7.4% * bs reviewed and stable (4) Hypertension: Qualifiers: Hypertension type: primary hypertension Qualified Code(s): I10 - Essential (primary) hypertension Code(s): I10 - Essential (primary) hypertension Status: Acute Assessment and Plan: * Patient's blood pressure was reviewed on 03/28 * Blood pressure remains well controlled. * Will continue current medications * Metoprolol 100mg (5) Coronary artery disease: Code(s): I25.10 - Atherosclerotic heart disease of [place] coronary artery without angina pectoris Status: Acute (6) Electrolyte imbalance: Code(s): E87.8 - Other disorders of electrolyte and fluid balance, not elsewhere classified Status: Acute Assessment and Plan: mg had been replaced several times with PO and IV -currently 1.5 (up from 1) -continue PO daily replacement and monitor -k is 3 -will order iv replacement and monitor Time Spent With Patient Time with patient: 25 - 35 minutes Subjective Date/time seen: 03/29/25 08:13 Interval history: 89-year-old female with history of coronary artery disease and stent, hypertension, hyperlipidemia, type 2 diabetes mellitus, and chronic hyponatremia who presented to the emergency department via private vehicle with complaints of left-sided neck pain and concerns for possible heart attack. 03/29/2025 assuming care. Pt is seen and examined. she is pleasant, denies any pain, n/v Review of Systems Review of Systems: 12 systems were reviewed and are negativ e except for as per HPI. Exam Narrative: General: Very thin, frail elderly female HEENT: Small bump on the top of the right scalp near hairline. PERRL, EOMI. Sclera anicteric. Moist mucous membranes. Neck: Supple. She is tender to palpation over the left upper trapezius muscle. Respiratory: Lungs are clear to auscultation bilaterally. Cardiovascular: Regular rate and rhythm with S1-S2. Soft murmur at the left sternal border. Chest: Radiation changes on the right chest with scattered, chronic ulcerative areas. Gastrointestinal: Abdomen is soft, scaphoid, nontender, and nondistended with positive bowel sounds. Skin: Warm and dry. Extremities: No cyanosis, clubbing, or edema. Radial and pedal pulses intact. Neurological: Alert. Cranial nerves grossly intact. No gross focal deficits to casual conversation. Psychiatric: Pleasant and cooperative with appropriate mood and affect. Seems to be a bit forgetful. Const: General: comfortable Objective Data Vital Signs Vital Signs: Vital Signs - 24 hr 03/28/25 08:21 03/28/25 08:23 03/28/25 12:00 Temperature Pulse Rate 71 71 63 Respiratory Rate Blood Pressure 132/54 L Pulse Oximetry 94 Oxygen Delivery 03/28/25 16:00 03/28/25 16:07 03/28/25 20:00 Temperature 98.2 F Pulse Rate 69 69 Respiratory Rate 16 Blood Pressure 134/63 Pulse Oximetry 98 Oxygen Delivery Room Air 03/28/25 20:00 03/28/25 20:39 03/29/25 00:00 Temperature 98.7 F Pulse Rate 78 72 62 Respiratory Rate 17 Blood Pressure 130/53 L Pulse Oximetry 94 Oxygen Delivery 03/29/25 04:00 03/29/25 05:10 Temperature 97.7 F Pulse Rate 67 66 Respiratory Rate 16 Blood Pressure 145/55 H Pulse Oximetry 94 Oxygen Delivery Intake/Output Intake/Output: Intake & Output 03/26/25 03/27/25 03/28/25 03/29/25 23:59 23:59 23:59 23:59 Intake Total 1000 750 Output Total 1550 1300 Balance 1000 -800 -1300 Meds/Results Medications: Active Medications Generic Name Dose Route Start Last Admin Trade Name Freq PRN Reason Stop Dose Admin Acetaminophen 650 mg 03/28/25 01:16 03/28/25 20:37 Acetaminophen 325 Mg Tablet PO 650 mg Q4H PRN Administration Mild Pain (1-3) or Fever Aspirin 81 mg 03/28/25 08:00 03/28/25 08:22 Aspirin 81 Mg Chewable Tablet PO 81 mg DAILY@0800 JOURDAN Administration Atorvastatin Calcium 20 mg 03/28/25 09:00 03/28/25 08:22 Atorvastatin 20 Mg Tablet PO 20 mg DAILY JOURDAN Administration Cyanocobalamin 1,000 mcg 03/28/25 09:00 03/28/25 08:22 Cyanocobalamin 1,000 Mcg Tablet PO 1,000 mcg QAM JOURDAN Administration Dextrose 12.5 gm 03/28/25 01:16 Dextrose 50% 25 Gm/50 Ml Syringe IV PUSH PRN PRN Hypoglycemia Protocol Enoxaparin Sodium 30 mg 03/28/25 09:00 03/28/25 08:23 Enoxaparin 30 Mg/0.3 Ml Syringe SUB-Q 30 mg DAILY JOURDAN Administration Furosemide 20 mg 03/28/25 17:10 03/28/25 17:30 Furosemide 20 Mg Tablet PO 20 mg BID JOURDAN Administration Glucagon 1 mg 03/28/25 01:16 Glucagon For Inj 1 Mg Vial IM PRN PRN Hypoglycemia Protocol Glucose 15 gm 03/28/25 01:16 Glucose Oral Gel 15 Gm Of Glucse In 37.5 Gm Tube PO PRN PRN Hypoglycemia Protocol Dextrose 1,000 mls @ 100 mls/hr 03/28/25 01:16 Dextrose 5% 1,000 Ml IVPB PRN PRN Hypoglycemia Protocol Insulin Aspart 2 - 5 units 03/28/25 08:00 03/28/25 17:23 Insulin Aspart (*Bkc) 100 Units/Ml SUB-Q Not Given TIDWM JOURDAN Protocol Insulin Aspart 1 - 2 units 03/28/25 21:00 03/28/25 20:28 Insulin Aspart (*Bkc) 100 Units/Ml SUB-Q Not Given HS [facility] Protocol Magnesium Oxide 200 mg 03/28/25 09:00 03/28/25 08:23 Magnesium Oxide 200 Mg Tablet PO 200 mg DAILY JOURDAN Administration Metformin HCl 500 mg 03/28/25 09:00 03/28/25 08:23 Metformin Hcl 500 Mg Tablet PO 500 mg DAILY JOURDAN Administration Metoprolol Succinate 100 mg 03/28/25 09:00 03/28/25 08:23 Metoprolol Succinate Ext Rel 100 Mg Tabcr PO 100 mg DAILY JOURDAN Administration Ondansetron HCl 4 mg 03/28/25 01:16 Ondansetron Inj 4 Mg/2 Ml Vial IV PUSH Q4H PRN Nausea Sitagliptin Phosphate 25 mg 03/28/25 09:00 03/28/25 08:23 Sitagliptin Phosphate 25 Mg Tablet PO 25 mg DAILY JOURDAN Administration Sodium Chloride 1 gm 03/28/25 17:10 03/28/25 17:30 Sodium Chloride 1 Gm Tablet PO 1 gm BID JOURDAN Administration Vitamin D 25 mcg 03/28/25 09:00 03/28/25 08:22 Cholecalciferol (Vitamin D3) 25 Mcg (1,000 Units) Tablet PO 25 mcg DAILY JOURDAN Administration Radiology Results: ITS Impressions Chest X-Ray 03/27/25 21:14 IMPRESSION: No acute cardiopulmonary process. Cervical Spine CT 03/27/25 22:01 IMPRESSION: No acute fracture or traumatic malalignment in the cervical spine. Head CT 03/27/25 22:01 IMPRESSION: No acute intracranial process. Labs Labs: Laboratory Results - last 24 hr 03/28/25 03/28/25 03/28/25 05:10 08:28 12:24 WBC RBC Hgb Hct MCV MCH MCHC RDW Plt Count MPV Sodium Potassium Chloride Carbon Dioxide Anion Gap BUN Creatinine Estim Creat Clear Calc Estimated GFR Glucose POC Capillary Glucose 168 H 186 H Calcium Magnesium Random Cortisol 23.20 03/28/25 03/28/25 03/28/25 16:14 17:13 20:27 WBC RBC Hgb Hct MCV MCH MCHC RDW Plt Count MPV Sodium 120 L Potassium Chloride Carbon Dioxide Anion Gap BUN Creatinine Estim Creat Clear Calc Estimated GFR Glucose POC Capillary Glucose 132 H 159 H Calcium Magnesium Random Cortisol 03/29/25 04:59 WBC 6.0 RBC 4.29 Hgb 12.7 Hct 37.0 MCV 86.2 MCH 29.6 MCHC 34.3 RDW 13.0 Plt Count 167 MPV 10.3 Sodium 127 L Potassium 3.0 L Chloride 84 L Carbon Dioxide 35 H Anion Gap 8 BUN 18 H Creatinine 0.80 Estim Creat Clear Calc 28 Estimated GFR > 60 Glucose 119 H POC Capillary Glucose Calcium 9.5 Magnesium 1.5 L Random Cortisol Quality VTE Prophylaxis VTE prophylaxis: pharmacologic ordered
[2025-03-29] MEDS: FUROSEMIDE 20 MG TABLET PO (08:40)
[2025-03-29] MEDS: SODIUM CHLORIDE 1 GM TABLET PO ×2 (08:40→17:03)
[2025-03-29] MEDS: MAGNESIUM OXIDE 200 MG TABLET PO (08:40)
[2025-03-29] MEDS: ATORVASTATIN 20 MG TABLET PO (08:40)
[2025-03-29] MEDS: CHOLECALCIFEROL (VITAMIN D3) 25 MCG (1,000 UNITS) TABLET PO (08:40)
[2025-03-29] MEDS: METOPROLOL SUCCINATE EXT REL 100 MG TABCR PO (08:40)
[2025-03-29] MEDS: ASPIRIN 81 MG CHEWABLE TABLET PO (08:40)
[2025-03-29] MEDS: CYANOCOBALAMIN 1,000 MCG TABLET 1000 MCG PO (08:40)
[2025-03-29] MEDS: ENOXAPARIN 30 MG/0.3 ML SYRINGE SUB-Q (08:41)
--- NOTE | 2025-03-29 09:25 | P.PNNP_ITS ---
Progress Note: A&P Assessment and Plan (1) Hyponatremia: Code(s): E87.1 - Hypo-osmolality and hyponatremia Status: Acute Assessment and Plan: * acute on chronic * seems to run ~ 132 - 134mmol/L since 2021 * improvement noted * evaluation to date noted: * urine sodium is 105 * Chest X-ray negative * CT of head negative * TSH normal * cortisol level adequate * no current evidence of malignancy (known history breast cancer) * SPEP/UPEP and serum/urine osmolality pending * asymptomatic - mentation seems stable * HCTZ on hold * on fluid restriction, salt tabs, and lasix * follow trend of repeat sodiums (2) Hypokalemia: Code(s): E87.6 - Hypokalemia Status: Acute Assessment and Plan: * replacement as needed * likely precipitated by low magnesium level * follow trend (3) Hypomagnesemia: Code(s): E83.42 - Hypomagnesemia Status: Acute Assessment and Plan: * require significant supplementation * due to total body store depletion(?) * replace PRN and on scheduled therapy (4) Hypertension: Qualifiers: Hypertension type: primary hypertension Qualified Code(s): I10 - Essential (primary) hypertension Code(s): I10 - Essential (primary) hypertension Status: Chronic Assessment and Plan: * reasonable control * follow trend of hemodynamics (5) Type 2 diabetes mellitus: Code(s): E11.9 - Type 2 diabetes mellitus without complications Status: Chronic Assessment and Plan: * follow accu-cheks * glycemic control per hospitalist Will continue to follow. L Subjective Date/time seen: 03/29/25 09:25 Interval history: Follow-up for acute on chronic hyponatremia. Chart reviewed -- assuming care from Dr. Pugh; sodium has improved in the last 24 hours with addition of salt tabs + lasix in conjunction with fluid restriction; no apparent distress noted at the time of my visit; appears to be in good spirits. Exam 2 Narrative: General: thin and elderly [place] female in NAD Heart: normal S1 and S2; no rub Lungs: clear to auscultation Abdomen: soft, nontender, nondistended, positive bowel sounds Extremities: no cyanosis or clubbing; no edema Skin: warm and dry Objective Data Vital Signs Vital Signs: Vital Signs Temp Pulse Resp BP Pulse Ox O2 Del Method 03/29/25 08:40 Room Air 03/29/25 08:40 73 03/29/25 08:02 Room Air 03/29/25 08:00 69 03/29/25 05:10 97.7 F 66 16 145/55 H 94 03/29/25 04:00 67 03/29/25 00:00 62 03/28/25 20:39 98.7 F 72 17 130/53 L 94 03/28/25 20:00 78 03/28/25 20:00 Room Air 03/28/25 16:07 98.2 F 69 16 134/63 98 03/28/25 16:00 69 Intake/Output Intake/Output: Intake & Output 03/26/25 03/27/25 03/28/25 03/29/25 23:59 23:59 23:59 23:59 Intake Total 1000 750 240 Output Total 1550 1700 Balance 1000 -800 -1460 Meds/Results Medications: Active Medications Generic Name Dose Route Start Last Admin Trade Name Marvinq PRN Reason Stop Dose Admin Acetaminophen 650 mg 03/28/25 01:16 03/28/25 20:37 Acetaminophen 325 Mg Tablet PO 650 mg Q4H PRN Administration Mild Pain (1-3) or Fever Aspirin 81 mg 03/28/25 08:00 03/29/25 08:40 Aspirin 81 Mg Chewable Tablet PO 81 mg DAILY@0800 JOURDAN Administration Atorvastatin Calcium 20 mg 03/28/25 09:00 03/29/25 08:40 Atorvastatin 20 Mg Tablet PO 20 mg DAILY JOURDAN Administration Cyanocobalamin 1,000 mcg 03/28/25 09:00 03/29/25 08:40 Cyanocobalamin 1,000 Mcg Tablet PO 1,000 mcg QAM JOURDAN Administration Dextrose 12.5 gm 03/28/25 01:16 Dextrose 50% 25 Gm/50 Ml Syringe IV PUSH PRN PRN Hypoglycemia Protocol Enoxaparin Sodium 30 mg 03/28/25 09:00 03/29/25 08:41 Enoxaparin 30 Mg/0.3 Ml Syringe SUB-Q 30 mg DAILY JOURDAN Administration Furosemide 10 mg 03/29/25 17:00 Furosemide 10 Mg Tablet PO BID JOURDAN Glucagon 1 mg 03/28/25 01:16 Glucagon For Inj 1 Mg Vial IM PRN PRN Hypoglycemia Protocol Glucose 15 gm 03/28/25 01:16 Glucose Oral Gel 15 Gm Of Glucse In 37.5 Gm Tube PO PRN PRN Hypoglycemia Protocol Dextrose 1,000 mls @ 100 mls/hr 03/28/25 01:16 Dextrose 5% 1,000 Ml IVPB PRN PRN Hypoglycemia Protocol Potassium Chloride 40 meq/ 520 mls @ 130 mls/hr 03/29/25 09:00 03/29/25 09:33 Sodium Chloride IVPB 03/29/25 12:59 130 mls/hr ONCE ONE Administration Insulin Aspart 2 - 5 units 03/28/25 08:00 03/29/25 08:38 Insulin Aspart (*Bkc) 100 Units/Ml SUB-Q Not Given TIDWM JOURDAN Protocol Insulin Aspart 1 - 2 units 03/28/25 21:00 03/28/25 20:28 Insulin Aspart (*Bkc) 100 Units/Ml SUB-Q Not Given HS JOURDAN Protocol Magnesium Oxide 200 mg 03/28/25 09:00 03/29/25 08:40 Magnesium Oxide 200 Mg Tablet PO 200 mg DAILY JOURDAN Administration Metformin HCl 500 mg 03/28/25 09:00 03/29/25 08:40 Metformin Hcl 500 Mg Tablet PO 500 mg DAILY JOURDAN Administration Metoprolol Succinate 100 mg 03/28/25 09:00 03/29/25 08:40 Metoprolol Succinate Ext Rel 100 Mg Tabcr PO 100 mg DAILY JOURDAN Administration Ondansetron HCl 4 mg 03/28/25 01:16 Ondansetron Inj 4 Mg/2 Ml Vial IV PUSH Q4H PRN Nausea Sitagliptin Phosphate 25 mg 03/28/25 09:00 03/29/25 08:40 Sitagliptin Phosphate 25 Mg Tablet PO 25 mg DAILY JOURDAN Administration Sodium Chloride 1 gm 03/28/25 17:10 03/29/25 08:40 Sodium Chloride 1 Gm Tablet PO 1 gm BID JOURDAN Administration Vitamin D 25 mcg 03/28/25 09:00 03/29/25 08:40 Cholecalciferol (Vitamin D3) 25 Mcg (1,000 Units) Tablet PO 25 mcg DAILY JOURDAN Administration Radiology Results: ITS Impressions Chest X-Ray 03/27/25 21:14 IMPRESSION: No acute cardiopulmonary process. Cervical Spine CT 03/27/25 22:01 IMPRESSION: No acute fracture or traumatic malalignment in the cervical spine. Head CT 03/27/25 22:01 IMPRESSION: No acute intracranial process. Labs Labs: Laboratory Tests 03/29/25 04:59 03/29/25 04:59 Calcium 9.5 Magnesium 1.5 L
[2025-03-29] MEDS: POTASSIUM CHLORIDE INJ 40 MEQ in SODIUM CHLORIDE 0.9% IV 500 ML 130 MEQ IVPB (09:33)
[2025-03-29] MEDS: FUROSEMIDE 10 MG TABLET PO (17:03)
[2025-03-29] MEDS: SENNA/DOCUSATE SODIUM TABLET 1 TAB PO ×2 (17:03→21:02)
[2025-03-29] MEDS: BISACODYL 10 MG SUPPOSITORY RECTAL (18:05)
[2025-03-30] VITALS (10 sets, daily range): BP systolic 132–138; BP diastolic 49–64; PULSE 76–100; RESP 16; TEMP 36.4–36.8; O2SAT 93–95
[2025-03-30 06:24] LABS: Albumin Level 4.2 g/dL (3.5-5.1); Anion Gap 7 mmol/L (4-12); Blood Urea Nitrogen 25 mg/dL (7-17); Calcium 10.2 mg/dL (8.4-10.2); Carbon Dioxide 33 mmol/L (22-30); Chloride 89 mmol/L (98-107); Estimated CRCL calculation 29 ml/min; Estimated Glomerular Filt Rate > 60; Glucose 139 mg/dL (65-110); Potassium 4.0 mmol/L (3.4-5.0); Sodium 129 mmol/L (137-145)
[2025-03-30] MEDS: ENOXAPARIN 30 MG/0.3 ML SYRINGE SUB-Q (08:40)
[2025-03-30] MEDS: FUROSEMIDE 10 MG TABLET PO ×2 (08:40→17:18)
[2025-03-30] MEDS: ASPIRIN 81 MG CHEWABLE TABLET PO (08:40)
[2025-03-30] MEDS: METOPROLOL SUCCINATE EXT REL 100 MG TABCR PO (08:40)
[2025-03-30] MEDS: ATORVASTATIN 20 MG TABLET PO (08:40)
[2025-03-30] MEDS: CYANOCOBALAMIN 1,000 MCG TABLET 1000 MCG PO (08:40)
[2025-03-30] MEDS: CHOLECALCIFEROL (VITAMIN D3) 25 MCG (1,000 UNITS) TABLET PO (08:40)
[2025-03-30] MEDS: MAGNESIUM OXIDE 200 MG TABLET PO (08:40)
[2025-03-30] MEDS: INSULIN ASPART (*BKC) 100 UNITS/ML SUB-Q ×2 (08:40→21:07)
[2025-03-30] MEDS: SODIUM CHLORIDE 1 GM TABLET PO ×2 (08:40→17:18)
--- NOTE | 2025-03-30 10:30 | P.PNNP_ITS ---
Progress Note: A&P Assessment and Plan (1) Hyponatremia: Code(s): E87.1 - Hypo-osmolality and hyponatremia Status: Acute Assessment and Plan: * improvement noted * acute on chronic * seems to run ~ 132 - 134mmol/L since 2021 * improvement noted * evaluation to date noted: * urine sodium is 105 * Chest X-ray negative * CT of head negative * TSH normal * cortisol level adequate * no current evidence of malignancy (known history breast cancer) * SPEP/UPEP and serum/urine osmolality pending * asymptomatic - mentation seems stable * HCTZ on hold * on fluid restriction, salt tabs, and lasix currently * wean off salt tabs and lasix on discharge * follow trend of repeat sodiums (2) Hypokalemia: Code(s): E87.6 - Hypokalemia Status: Acute Assessment and Plan: * replacement as needed * likely precipitated by low magnesium level * follow trend (3) Hypomagnesemia: Code(s): E83.42 - Hypomagnesemia Status: Acute Assessment and Plan: * require significant supplementation * due to total body store depletion(?) * replace PRN and on scheduled therapy (4) Hypertension: Qualifiers: Hypertension type: primary hypertension Qualified Code(s): I10 - Essential (primary) hypertension Code(s): I10 - Essential (primary) hypertension Status: Chronic Assessment and Plan: * reasonable control * follow trend of hemodynamics (5) Type 2 diabetes mellitus: Code(s): E11.9 - Type 2 diabetes mellitus without complications Status: Chronic Assessment and Plan: * follow accu-cheks * glycemic control per hospitalist Will continue to follow. L Subjective Date/time seen: 03/30/25 10:30 Interval history: Follow-up for acute on chronic hyponatremia. Sodium continues to improve with current therapy/intervention instituted; no other issues/events overnight or earlier this morning; feels reasonably well at the time of my visit; no apparent distress to report when seen. Exam 2 Narrative: General: thin and elderly [place] female in NAD Heart: normal S1 and S2; no rub Lungs: clear to auscultation Abdomen: soft, nontender, nondistended, positive bowel sounds Extremities: no cyanosis or clubbing; no edema Skin: warm and intact Objective Data Vital Signs Vital Signs: Vital Signs Temp Pulse Resp BP Pulse Ox O2 Del Method 07/01/25 08:40 Room Air 03/30/25 08:40 80 03/30/25 08:00 81 03/30/25 04:27 98.2 F 80 16 138/63 94 03/30/25 04:00 87 03/30/25 00:00 88 03/29/25 20:14 98.3 F 82 16 104/54 L 99 03/29/25 20:00 93 03/29/25 20:00 82 16 99 Room Air 03/29/25 16:00 78 03/29/25 15:35 97.9 F 80 16 112/47 L 95 Intake/Output Intake/Output: Intake & Output 03/27/25 03/28/25 03/29/25 03/30/25 23:59 23:59 23:59 23:59 Intake Total 3949 609 1685 280 Output Total 1550 2300 Balance 1000 -800 -1010 280 Meds/Results Medications: Active Medications Generic Name Dose Route Start Last Admin Trade Name Freq PRN Reason Stop Dose Admin Acetaminophen 650 mg 03/28/25 01:16 03/28/25 20:37 Acetaminophen 325 Mg Tablet PO 650 mg Q4H PRN Administration Mild Pain (1-3) or Fever Aspirin 81 mg 03/28/25 08:00 03/30/25 08:40 Aspirin 81 Mg Chewable Tablet PO 81 mg DAILY@0800 JOURDAN Administration Atorvastatin Calcium 20 mg 03/28/25 09:00 03/30/25 08:40 Atorvastatin 20 Mg Tablet PO 20 mg DAILY JOURDAN Administration Cyanocobalamin 1,000 mcg 03/28/25 09:00 03/30/25 08:40 Cyanocobalamin 1,000 Mcg Tablet PO 1,000 mcg QAM JOURDAN Administration Dextrose 12.5 gm 03/28/25 01:16 Dextrose 50% 25 Gm/50 Ml Syringe IV PUSH PRN PRN Hypoglycemia Protocol Enoxaparin Sodium 30 mg 03/28/25 09:00 03/30/25 08:40 Enoxaparin 30 Mg/0.3 Ml Syringe SUB-Q 30 mg DAILY JOURDAN Administration Furosemide 10 mg 03/29/25 17:00 03/30/25 08:40 Furosemide 10 Mg Tablet PO 10 mg BID JOURDAN Administration Glucagon 1 mg 03/28/25 01:16 Glucagon For Inj 1 Mg Vial IM PRN PRN Hypoglycemia Protocol Glucose 15 gm 03/28/25 01:16 Glucose Oral Gel 15 Gm Of Glucse In 37.5 Gm Tube PO PRN PRN Hypoglycemia Protocol Dextrose 1,000 mls @ 100 mls/hr 03/28/25 01:16 Dextrose 5% 1,000 Ml IVPB PRN PRN Hypoglycemia Protocol Insulin Aspart 2 - 5 units 03/28/25 08:00 03/30/25 12:23 Insulin Aspart (*Bkc) 100 Units/Ml SUB-Q Not Given TIDWM JOURDAN Protocol Insulin Aspart 1 - 2 units 03/28/25 21:00 03/29/25 21:01 Insulin Aspart (*Bkc) 100 Units/Ml SUB-Q Not Given HS JOURDAN Protocol Magnesium Oxide 200 mg 03/28/25 09:00 03/30/25 08:40 Magnesium Oxide 200 Mg Tablet PO 200 mg DAILY JOURDAN Administration Metformin HCl 500 mg 03/28/25 09:00 03/30/25 08:40 Metformin Hcl 500 Mg Tablet PO 500 mg DAILY JOURDAN Administration Metoprolol Succinate 100 mg 03/28/25 09:00 03/30/25 08:40 Metoprolol Succinate Ext Rel 100 Mg Tabcr PO 100 mg DAILY JOURDAN Administration Ondansetron HCl 4 mg 03/28/25 01:16 Ondansetron Inj 4 Mg/2 Ml Vial IV PUSH Q4H PRN Nausea Senna/Docusate Sodium 1 tab 03/29/25 12:15 03/29/25 21:02 Senna/Docusate Sodium Tablet PO 1 tab HS JOURDAN Administration Sitagliptin Phosphate 25 mg 03/28/25 09:00 03/30/25 08:40 Sitagliptin Phosphate 25 Mg Tablet PO 25 mg DAILY JOURDAN Administration Sodium Chloride 1 gm 03/28/25 17:10 03/30/25 08:40 Sodium Chloride 1 Gm Tablet PO 1 gm BID JOURDAN Administration Vitamin D 25 mcg 03/28/25 09:00 03/30/25 08:40 Cholecalciferol (Vitamin D3) 25 Mcg (1,000 Units) Tablet PO 25 mcg DAILY JOURDAN Administration Radiology Results: ITS Impressions Chest X-Ray 03/27/25 21:14 IMPRESSION: No acute cardiopulmonary process. Cervical Spine CT 03/27/25 22:01 IMPRESSION: No acute fracture or traumatic malalignment in the cervical spine. Head CT 03/27/25 22:01 IMPRESSION: No acute intracranial process. Labs Labs: Laboratory Tests 03/29/25 04:59 03/30/25 05:34 Calcium 10.2 Phosphorus 2.4 L Albumin 4.2
[2025-03-30 12:49] LABS: Osmolality, Urine. 425 mOsm/kg (50-1200)
--- NOTE | 2025-03-30 12:51 | P.PNIM_ITS ---
Progress Note: A&P Assessment and Plan (1) Hyponatremia: Code(s): E87.1 - Hypo-osmolality and hyponatremia Status: Acute Assessment and Plan: * Acute on chronic hyponatremia, * Baseline Na usually in the low 130s * In ED: Na 120 * Pseudohyponatremia unlikely, possible element of SIADH given fall * Urine/serum osmolalities, urine sodium and creatinine, and TSH pending * Nephro consult * Continue holding HCTZ * H20 restrict * Lasix plus salt tablets * 3% NS if symptomatic * 03/30: Na 129, continue to monitor daily (2) Strain of cervical portion of left trapezius muscle: Code(s): S16.1XXA - Strain of muscle, fascia and tendon at neck level, initial encounter Status: Acute Assessment and Plan: * Fell 2 days ago at library, lost balance, hit top of head. Denies LOC * Has had left sided neck pain since then - patient suspects possible cardiac event given hx * Pain is reproducible on exam * EKG nsr, troponin negative * Less likely cardiac in nature - more likely 2/2 musculoskeletal (3) Type 2 diabetes mellitus: Code(s): E11.9 - Type 2 diabetes mellitus without complications Status: Chronic Assessment and Plan: * Hypoglycemia protocol * POC blood glucose ACHS * Home medication - Sitagliptin - continue, hold metformin * Correct regimen ordered - low dose TIDWM and HS * A1C 7.4% * bs reviewed and stable (4) Hypertension: Qualifiers: Hypertension type: primary hypertension Qualified Code(s): I10 - Essential (primary) hypertension Code(s): I10 - Essential (primary) hypertension Status: Chronic Assessment and Plan: * Patient's blood pressure was reviewed on 03/28 * Blood pressure remains well controlled. * Will continue current medications * Metoprolol 100mg (5) Coronary artery disease: Code(s): I25.10 - Atherosclerotic heart disease of [place] coronary artery without angina pectoris Status: Acute (6) Electrolyte imbalance: Code(s): E87.8 - Other disorders of electrolyte and fluid balance, not elsewhere c lassified Status: Acute Assessment and Plan: mg had been replaced several times with PO and IV -currently 1.5 (up from 1) -continue PO daily replacement and monitor -k is 4.0 -will order iv replacement and monitor Subjective Date/time seen: 03/30/25 12:51 Interval history: 89-year-old female with history of coronary artery disease and stent, hypertension, hyperlipidemia, type 2 diabetes mellitus, and chronic hyponatremia who presented to the emergency department via private vehicle with complaints of left-sided neck pain and concerns for possible heart attack. 03/30/2025 Patient sitting at bedside during time of exam. Na up to 129 today. Still endorsing generalized weakness but states it has greatly improved. PT/OT still rec SNF. Pt has been accepted, pending auth at this time but likely can be dc tomorrow. Will continue to monitor Na. Otherwise pt has no complaints or concerns. Review of Systems Review of Systems: 12 systems were reviewed and are negativ e except for as per HPI. Exam Narrative: General: Very thin, frail elderly female HEENT: Small bump on the top of the right scalp near hairline. PERRL, EOMI. Sclera anicteric. Moist mucous membranes. Neck: Supple. She is tender to palpation over the left upper trapezius muscle. Respiratory: Lungs are clear to auscultation bilaterally. Cardiovascular: Regular rate and rhythm with S1-S2. Soft murmur at the left sternal border. Chest: Radiation changes on the right chest with scattered, chronic ulcerative areas. Gastrointestinal: Abdomen is soft, scaphoid, nontender, and nondistended with positive bowel sounds. Skin: Warm and dry. Extremities: No cyanosis, clubbing, or edema. Radial and pedal pulses intact. Neurological: Alert. Cranial nerves grossly intact. No gross focal deficits to casual conversation. Psychiatric: Pleasant and cooperative with appropriate mood and affect. Seems to be a bit forgetful. Const: General: comfortable Objective Data Vital Signs Vital Signs: Vital Signs - 24 hr 03/29/25 15:35 03/29/25 16:00 03/29/25 20:00 Temperature 97.9 F Pulse Rate 80 78 82 Respiratory Rate 16 16 Blood Pressure 112/47 L Pulse Oximetry 95 99 Oxygen Delivery Room Air 03/29/25 20:00 03/29/25 20:14 03/30/25 00:00 Temperature 98.3 F Pulse Rate 93 82 88 Respiratory Rate 16 Blood Pressure 104/54 L Pulse Oximetry 99 Oxygen Delivery 03/30/25 04:00 03/30/25 04:27 03/30/25 08:00 Temperature 98.2 F Pulse Rate 87 80 81 Respiratory Rate 16 Blood Pressure 138/63 Pulse Oximetry 94 Oxygen Delivery 03/30/25 08:40 03/30/25 08:40 03/30/25 12:00 Temperature Pulse Rate 80 76 Respiratory Rate Blood Pressure Pulse Oximetry Oxygen Delivery Room Air Intake/Output Intake/Output: Intake & Output 03/27/25 03/28/25 03/29/25 03/30/25 23:59 23:59 23:59 23:59 Intake Total 6542 588 7910 280 Output Total 1550 2300 Balance 1000 -800 -1010 280 Meds/Results Medications: Active Medications Generic Name Dose Route Start Last Admin Trade Name Freq PRN Reason Stop Dose Admin Acetaminophen 650 mg 03/28/25 01:16 03/28/25 20:37 Acetaminophen 325 Mg Tablet PO 650 mg Q4H PRN Administration Mild Pain (1-3) or Fever Aspirin 81 mg 03/28/25 08:00 03/30/25 08:40 Aspirin 81 Mg Chewable Tablet PO 81 mg DAILY@0800 JOURDAN Administration Atorvastatin Calcium 20 mg 03/28/25 09:00 03/30/25 08:40 Atorvastatin 20 Mg Tablet PO 20 mg DAILY JOURDAN Administration Cyanocobalamin 1,000 mcg 03/28/25 09:00 03/30/25 08:40 Cyanocobalamin 1,000 Mcg Tablet PO 1,000 mcg QAM JOURDAN Administration Dextrose 12.5 gm 03/28/25 01:16 Dextrose 50% 25 Gm/50 Ml Syringe IV PUSH PRN PRN Hypoglycemia Protocol Enoxaparin Sodium 30 mg 03/28/25 09:00 03/30/25 08:40 Enoxaparin 30 Mg/0.3 Ml Syringe SUB-Q 30 mg DAILY JOURDAN Administration Furosemide 10 mg 03/29/25 17:00 03/30/25 08:40 Furosemide 10 Mg Tablet PO 10 mg BID JOURDAN Administration Glucagon 1 mg 03/28/25 01:16 Glucagon For Inj 1 Mg Vial IM PRN PRN Hypoglycemia Protocol Glucose 15 gm 03/28/25 01:16 Glucose Oral Gel 15 Gm Of Glucse In 37.5 Gm Tube PO PRN PRN Hypoglycemia Protocol Dextrose 1,000 mls @ 100 mls/hr 03/28/25 01:16 Dextrose 5% 1,000 Ml IVPB PRN PRN Hypoglycemia Protocol Insulin Aspart 2 - 5 units 03/28/25 08:00 03/30/25 12:23 Insulin Aspart (*Bkc) 100 Units/Ml SUB-Q Not Given TIDWM [facility] Protocol Insulin Aspart 1 - 2 units 03/28/25 21:00 03/29/25 21:01 Insulin Aspart (*Bkc) 100 Units/Ml SUB-Q Not Given HS [facility] Protocol Magnesium Oxide 200 mg 03/28/25 09:00 03/30/25 08:40 Magnesium Oxide 200 Mg Tablet PO 200 mg DAILY JOURDAN Administration Metformin HCl 500 mg 03/28/25 09:00 03/30/25 08:40 Metformin Hcl 500 Mg Tablet PO 500 mg DAILY JOURDAN Administration Metoprolol Succinate 100 mg 03/28/25 09:00 03/30/25 08:40 Metoprolol Succinate Ext Rel 100 Mg Tabcr PO 100 mg DAILY JOURDAN Administration Ondansetron HCl 4 mg 03/28/25 01:16 Ondansetron Inj 4 Mg/2 Ml Vial IV PUSH Q4H PRN Nausea Senna/Docusate Sodium 1 tab 03/29/25 12:15 03/29/25 21:02 Senna/Docusate Sodium Tablet PO 1 tab HS JOURDAN Administration Sitagliptin Phosphate 25 mg 03/28/25 09:00 03/30/25 08:40 Sitagliptin Phosphate 25 Mg Tablet PO 25 mg DAILY JOURDAN Administration Sodium Chloride 1 gm 03/28/25 17:10 03/30/25 08:40 Sodium Chloride 1 Gm Tablet PO 1 gm BID JOURDAN Administration Vitamin D 25 mcg 03/28/25 09:00 03/30/25 08:40 Cholecalciferol (Vitamin D3) 25 Mcg (1,000 Units) Tablet PO 25 mcg DAILY JOURDAN Administration Radiology Results: ITS Impressions Chest X-Ray 03/27/25 21:14 IMPRESSION: No acute cardiopulmonary process. Cervical Spine CT 03/27/25 22:01 IMPRESSION: No acute fracture or traumatic malalignment in the cervical spine. Head CT 03/27/25 22:01 IMPRESSION: No acute intracranial process. Labs Labs: Laboratory Results - last 24 hr 03/28/25 03/28/25 03/29/25 01:52 16:14 17:20 Sodium Potassium Chloride Carbon Dioxide Anion Gap BUN Creatinine Estim Creat Clear Calc Estimated GFR Glucose POC Capillary Glucose 126 H Serum Osmolality 273 L Calcium Phosphorus Total Protein 6.1 Albumin Urine Osmolality 425 03/29/25 03/30/25 03/30/25 20:13 05:34 08:17 Sodium 129 L Potassium 4.0 Chloride 89 L Carbon Dioxide 33 H Anion Gap 7 BUN 25 H Creatinine 0.76 Estim Creat Clear Calc 29 Estimated GFR > 60 Glucose 139 H POC Capillary Glucose 198 H 221 H Serum Osmolality Calcium 10.2 Phosphorus 2.4 L Total Protein Albumin 4.2 Urine Osmolality 03/30/25 12:07 Sodium Potassium Chloride Carbon Dioxide Anion Gap BUN Creatinine Estim Creat Clear Calc Estimated GFR Glucose POC Capillary Glucose 184 H Serum Osmolality Calcium Phosphorus Total Protein Albumin Urine Osmolality Quality VTE Prophylaxis VTE prophylaxis: pharmacologic ordered
[2025-03-30 15:59] LABS: Albumin 3.5 g/dL (3.8-4.8); Gamma Globulin 0.8 g/dL (0.8-1.7)
[2025-03-30] MEDS: SENNA/DOCUSATE SODIUM TABLET 1 TAB PO (21:05)
[2025-03-31] VITALS: PULSE 94
[2025-03-31 04:40] VITALS: BP 151/71; PULSE 77; RESP 16; TEMP 36.2; O2SAT 98
[2025-03-31 05:13] VITALS: PULSE 73
[2025-03-31 06:18] LABS: Albumin Level 3.8 g/dL (3.5-5.1); Anion Gap 6 mmol/L (4-12); Blood Urea Nitrogen 25 mg/dL (7-17); Calcium 10.4 mg/dL (8.4-10.2); Carbon Dioxide 32 mmol/L (22-30); Chloride 91 mmol/L (98-107); Estimated CRCL calculation 31 ml/min; Estimated Glomerular Filt Rate > 60; Glucose 132 mg/dL (65-110); Potassium 4.4 mmol/L (3.4-5.0); Sodium 129 mmol/L (137-145)
[2025-03-31 08:00] VITALS: PULSE 70
[2025-03-31] MEDS: FUROSEMIDE 10 MG TABLET PO (08:37)
[2025-03-31 08:38] VITALS: PULSE 87
[2025-03-31] MEDS: CHOLECALCIFEROL (VITAMIN D3) 25 MCG (1,000 UNITS) TABLET PO (08:38)
[2025-03-31] MEDS: ENOXAPARIN 30 MG/0.3 ML SYRINGE SUB-Q (08:38)
[2025-03-31] MEDS: ASPIRIN 81 MG CHEWABLE TABLET PO (08:38)
[2025-03-31] MEDS: CYANOCOBALAMIN 1,000 MCG TABLET 1000 MCG PO (08:38)
[2025-03-31] MEDS: MAGNESIUM OXIDE 200 MG TABLET PO (08:38)
[2025-03-31] MEDS: METOPROLOL SUCCINATE EXT REL 100 MG TABCR PO (08:38)
[2025-03-31] MEDS: SODIUM CHLORIDE 1 GM TABLET PO (08:38)
[2025-03-31] MEDS: ATORVASTATIN 20 MG TABLET PO (08:38)
--- NOTE | 2025-03-31 09:48 | P.DS_ITS ---
DS: Admitting Diagnosis Discharge Date 03/31/2025 Admitting Diagnosis Hyponatremia, trapezius strain DS: Discharge Diagnosis Discharge Diagnosis (1) Hyponatremia: Code(s): E87.1 - Hypo-osmolality and hyponatremia Status: Acute Assessment and Plan: * Acute on chronic hyponatremia, * Baseline Na usually in the low 130s * In ED: Na 120 * Pseudohyponatremia unlikely, possible element of SIADH given fall * Urine/serum osmolalities, urine sodium and creatinine, and TSH pending * Nephro consult * Continue holding HCTZ * H20 restrict * Lasix plus salt tablets * 3% NS if symptomatic * 03/30: Na 129, continue to monitor daily (2) Strain of cervical portion of left trapezius muscle: Code(s): S16.1XXA - Strain of muscle, fascia and tendon at neck level, initial encounter Status: Acute Assessment and Plan: * Fell 2 days ago at library, lost balance, hit top of head. Denies LOC * Has had left sided neck pain since then - patient suspects possible cardiac event given hx * Pain is reproducible on exam * EKG nsr, troponin negative * Less likely cardiac in nature - more likely 2/2 musculoskeletal (3) Type 2 diabetes mellitus: Code(s): E11.9 - Type 2 diabetes mellitus without complications Status: Chronic Assessment and Plan: * Hypoglycemia protocol * POC blood glucose ACHS * Home medication - Sitagliptin - continue, hold metformin * Correct regimen ordered - low dose TIDWM and HS * A1C 7.4% * bs reviewed and stable (4) Hypertension: Qualifiers: Hypertension type: primary hypertension Qualified Code(s): I10 - Essential (primary) hypertension Code(s): I10 - Essential (primary) hypertension Status: Chronic Assessment and Plan: * Patient's blood pressure was reviewed on 03/28 * Blood pressure remains well controlled. * Will continue current medications * Metoprolol 100mg (5) Coronary artery disease: Code(s): I25.10 - Atherosclerotic heart disease of standing [place] coronary artery without angina pectoris Status: Acute (6) Electrolyte imbalance: Code(s): E87.8 - Other disorders of electrolyte and fluid balance, not elsewhere classified Status: Acute Assessment and Plan: mg had been replaced several times with PO and IV -currently 1.5 (up from 1) -continue PO daily replacement and monitor -k is 4.0 -will order iv replacement and monitor DS: Summary Hospital Course Reason for hospitalization: Left-sided neck pain with concerns for possible heart attack. Hospital Course: This is a pleasant 89-year-old female with history of coronary artery disease and stent, hypertension, hyperlipidemia, type 2 diabetes mellitus, and chronic hyponatremia who presented to the emergency department via private vehicle with complaints of left-sided neck pain and concerns for possible heart attack. Two days ago she went to the local [employer] and when she walked in the door she lost her balance and fell forward onto the ground, hitting the top of her head. She has had some pain throughout the left side of her neck and left upper back since that time which is worse with movement and touch. Her daughter is a physician admission again and she called and told her that she was having this pain. Due to her cardiac history, she was encouraged to come in to the ED to rule out anginal equivalent. She did not sustain any other injuries in the fall and denies loss of consciousness. She also denies paresthesias and weakness of the extremities. She has not had any chest pain, exertional or otherwise, and she also denies shortness of breath, nausea, vomiting, sweats, lower extremity edema, and calf pain. In the ED: Her blood pressure was 163/82 on arrival. The remainder of her vital signs were within normal limits. Labs are significant for WBC count of 10.7, sodium 120, potassium 3.3, chloride 82, BUN 30, creatinine 0.73, glucose 148, troponin less than 0.012. EKG showed sinus rhythm without concerning ST segment changes. Urinalysis was positive for 1+ protein, 1+ ketones, 1+ blood, 6 to 10 RBC. Head and cervical spine CTs were without acute findings. Chest x-ray was normal. She was given an L normal saline and she is being admitted in this setting for further evaluation of hyponatremia. Nephrology consulted regarding acute on chronic hyponatremia. Agree with holding HTCZ for time being. Although Na has been chronically low for a while, it is lower now, possibly due to over-hydration. Mentation status is appropriate. TSH and cortisol wnl. Pt was then started on Lasix and salt tablets. 3% NS was considered but was not needed as Na increased from 120 to 129 over course of hospitalization. This is still lower than her normal, but this was discussed with Nephrology again and they agree that pt is stable from a nephrology standpoint for discharge as long as she follows up in the outpt setting and obtain a Comprehensive Metabolic panel in a few days to assess Na. Pt is agreeable to this. Pt was seen by PT/OT who recommended SNF for continued rehab. Insurance authorization was accepted on 03/31 and pt able to be discharged at this time. Status at Discharge Functional status at discharge: uses cane/walker Overall status at discharge: patient is back to baseline Time Spent with Patient Time attestation: Total time spent providing and/or coordinating discharge services: 41 Exam Narrative: General: Very thin, frail elderly female HEENT: Small bump on the top of the right scalp near hairline. PERRL, EOMI. Sclera anicteric. Moist mucous membranes. Neck: Supple. She is tender to palpation over the left upper trapezius muscle. Respiratory: Lungs are clear to auscultation bilaterally. Cardiovascular: Regular rate and rhythm with S1-S2. Soft murmur at the left sternal border. Chest: Radiation changes on the right chest with scattered, chronic ulcerative areas. Gastrointestinal: Abdomen is soft, scaphoid, nontender, and nondistended with positive bowel sounds. Skin: Warm and dry. Extremities: No cyanosis, clubbing, or edema. Radial and pedal pulses intact. Neurological: Alert. Cranial nerves grossly intact. No gross focal deficits to casual conversation. Psychiatric: Pleasant and cooperative with appropriate mood and affect. Seems to be a bit forgetful. Const: General: comfortable DS: Data Data Completed and Pending Labs on day of discharge: Labs from last 24 hours 03/31/25 03/31/25 03/30/25 07:45 05:22 21:06 Sodium 129 L Potassium 4.4 Chloride 91 L Carbon Dioxide 32 H Anion Gap 6 BUN 25 H Creatinine 0.75 Estim Creat Clear Calc 31 Estimated GFR > 60 Glucose 132 H POC Capillary Glucose 129 H 213 H Serum Osmolality Calcium 10.4 H Phosphorus 3.0 Albumin 3.8 Ywdnh-1-Vddmlsxgt Kdxde-0-Dvydpcbmy Zvkj-2-Pblrpspt Jzuw-7-Fchxbbvh Gamma Globulins PEP Interpretation Urine Osmolality 03/30/25 03/30/25 03/28/25 17:06 12:07 16:14 Sodium Potassium Chloride Carbon Dioxide Anion Gap BUN Creatinine Estim Creat Clear Calc Estimated GFR Glucose POC Capillary Glucose 154 H 184 H Serum Osmolality 273 L Calcium Phosphorus Albumin 3.5 L Fkeaw-7-Eiqhzliom 0.3 Hzaaq-8-Ytqtsgfiz 0.7 Phrt-9-Fdjcctmt 0.5 Ufyk-6-Siqbmhiv 0.3 Gamma Globulins 0.8 PEP Interpretation See note Urine Osmolality 03/28/25 01:52 Sodium Potassium Chloride Carbon Dioxide Anion Gap BUN Creatinine Estim Creat Clear Calc Estimated GFR Glucose POC Capillary Glucose Serum Osmolality Calcium Phosphorus Albumin Jawvg-7-Tkqohtoos Bunkr-4-Nnhdsxpgf Hswg-4-Apsnevyu Tihb-8-Wqjgwczx Gamma Globulins PEP Interpretation Urine Osmolality 425 Discharge Plan Discharge Attending physician on discharge: Hannah Wadsworth Consulting providers: Vickey Mendez; Chandrakant Pugh Discharging Clinician: Vickey Mendez Anticipated Discharge Date/Time: 03/31/25 09:45 Patient Disposition: SNF Activity: as tolerated Diet: as tolerated Discharge Instructions: Discharge disposition: Stable Take medications as prescribed. You will also be given blood work order to be fi lled out at a location to be determined by you to obtain a Comprehensive Metabolic Panel to assess Sodium level. Get this done in 3 days time. Monitor blood pressures Take caution while standing, rising, or moving Change positions slowly taking a break between each position change If you standing feel dizzy sit back down and take a break Encouraged to continue with yearly vaccinations Return to the emergency department if he developed sudden shortness of breath, chest pain, nausea, vomiting, upset stomach or intractable diarrhea Return to the emergency department if you develop fever greater than 101.5 Follow-up with the primary care physician within 1-2 weeks Thank you for choosing [facility] for your healthcare needs Patient Language: Uzbek Stand Alone Forms: General Discharge Information Discharge Medications: Continued metoprolol succinate 100 mg tablet extended release 24 hr 100 mg PO DAILY magnesium 200 mg tablet 200 mg PO DAILY mecobalamin (vitamin B12) 1,000 mcg tablet,chewable 1,000 mcg PO DAILY metformin 500 mg tablet 500 mg PO DAILY Qty: 90 0RF Januvia 25 mg tablet 25 mg PO DAILY Qty: 90 0RF cholecalciferol (vitamin D3) 25 mcg (1,000 unit) capsule 25 mcg PO DAILY Qty: 90 0RF atorvastatin 20 mg tablet 20 mg PO DAILY Qty: 90 1RF aspirin 81 mg capsule 81 mg PO DAILY Qty: 90 1RF (DME) blood-glucose meter [OneTouch Verio Flex Start] Kit See Rx Instructions .Route Qty: 1 0RF Rx Instructions: Use to check blood sugar daily (DME) OneTouch Verio test strips Strip See Rx Instructions .Route Qty: 100 5RF Rx Instructions: Use to test blood sugar daily (DME) Easy Touch Lancets 32 gauge misc See Rx Instructions .Route Qty: 100 5RF Rx Instructions: Use to test blood sugar daily Other Ambulatory Orders: Comprehensive Metabolic Panel (Routine) Timeframe: 3 Days Location: Determined by Patient Ordered By: Vickey Mendez Date of admission: 03/28/25 07:38 Primary Care Provider: Caryn Pollack Admitting Provider: Deep Mcclellan Attending physician on admission: Deep Mcclellan Condition: Stable Quality VTE Prophylaxis VTE prophylaxis: pharmacologic ordered
== END 2025-03-31 11:05 | DRG 641 ==
LOC: ANHED 03-28 01:19 → ANH3MEDSUR 03-28 02:45 → ANH2MED 03-28 03:02
PROVIDERS: Internal Medicine Nephrology; Physician Assistant; Admitting Provider Internal Medicine; Emergency Provider Physician Assistant; PCP Family Medicine; Visit Provider Physician Assistant
DX: E87.1 Hypo-osmolality and hyponatremia (principal); S16.1XXA Strain of muscle, fascia and tendon at neck level, initial encounter; W19.XXXA Unspecified fall, initial encounter; E78.5 Hyperlipidemia, unspecified; E11.9 Type 2 diabetes mellitus without complications; I10 Essential (primary) hypertension; I25.10 Atherosclerotic heart disease of native coronary artery without angina pectoris; Z95.5 Presence of coronary angioplasty implant and graft; Z85.3 Personal history of malignant neoplasm of breast; Z79.82 Long term (current) use of aspirin; Z79.84 Long term (current) use of oral hypoglycemic drugs; Z88.0 Allergy status to penicillin
CPT/HCPCS: 36415; 70450; 71045; 72125; 80048; 80053; 80069; 81001; 82533; 82570; 82948; 83036; 83735; 83880; 83930; 83935; 84155; 84165; 84295; 84300; 84443; 84484; 85025; 85027; 85610; 85730; 93005; 96361; 96365; 96375; 97110; 97162; 97165; 97530; 97535; 99285; A9270; G0378; J1650; J1815; J3475; J3480; J7030; J7040

== ENCOUNTER 2025-04-23 09:01 | Outpatient (CLI) | payer MEDICARE, BC, SELFPAY ==
--- OUTSIDE RECORDS SUMMARY | 2025-04-23 09:11 | XMS_ITS | Encounter Summary ---
Author Organization [facility] Facility Care Team Providers Care Clinical Engineer Name Role Phone Keyshawn Clancy MD Primary Care Provider + [phone] Clare Núñez MD Unavailable [phone] Ranjit Pemberton MD Unavailable [phone] Emre Paz MD Unavailable [phone] Brayden Zarco MD Unavailable [phone] Madhu De Leon DO Primary Care Provider [phone] Encounter Details Date Type Department Care Team (Latest Contact Info) Description 05/17/2016 Orders Only [facility] CLINCONV Provider, MD Sandy [address] [place] [address] Social History Tobacco Use Types Packs/Day Years Used Date Smoking Tobacco: Never Assessed Comments Unknown Sex and Gender Information Value Date Recorded Sex Assigned at Not on file 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 Gender Identity Not on file Sexual [...] on filedocumented in this encounter Care Teams Clinical Engineer Relationship Specialty Start Date End Date Keyshawn Clancy MD [address] [place] [address] PCP - General 12/31/16 11/04/22 Madhu De Leon DO [address] [facility] [address] [place] [address] [address] PCP - General Family Medicine 11/05/22 Clare Núñez MD [address] [place] [address] Consulting Physician Radiation Oncology 06/16/18 Ranjit Pemberton MD [address] DE[place] [address] Otolaryngology 12/29/18 Emre Paz MD [address] [facility] [address] [place] [address] [address] Confectionery Cooker Cardiology 10/28/20 09/02/23 Brayden Zarco MD [address] [facility] [address] [place] [address] [address] Consulting Physician Hematology and Oncology 07/03/21 documented as of this encounter
--- OUTSIDE RECORDS SUMMARY | 2025-04-23 09:11 | XMS_ITS | Encounter Summary ---
Author Organization [facility] Facility Care Team Providers Care Audit Machine Operator Name Role Phone Keyshawn Clancy MD Primary Care Provider + [phone] Clare Núñez MD Unavailable [phone] Ranjit Pemberton MD Unavailable [phone] Emre Paz MD Unavailable [phone] Brayden Zarco MD Unavailable [phone] Madhu De Leon DO Primary Care Provider [phone] Encounter Details Date Type Department Care Team (Latest Contact Info) Description 08/27/2017 Orders Only [facility] CLINCONV Provider, MD Sandy [address] [place] [address] Social History Tobacco Use Types Packs/Day Years Used Date Smoking Tobacco: Never Smokeless Tobacco: Never Comments Unknown Sex and Gender Information Value Date Recorded Sex Assigned at Not on file 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 Historical Provider Final Res ult documented in this encounter Visit Diagnoses Not on filedocumented in this encounter Care Teams Audit Machine Operator Relationship Specialty Start Date End Date Keyshawn Clancy MD [address] [place] [address] PCP - General 12/31/16 11/04/22 Madhu De Leon DO [address] [facility] [address] [place] [address] [address] PCP - General Family Medicine 11/05/22 Clare Núñez MD [address] [place] [address] Consulting Physician Radiation Oncology 06/16/18 Ranjit Pemberton MD [address] [place] [address] Otolaryngology 12/29/18 Emre Paz MD [address] [facility] [address] [place] [address] [address] Religious Assistant Cardiology 10/28/20 09/02/23 Brayden Zarco MD [address] [facility] [address] [place] [address] [address] Consulting Physician Hematology and Oncology 07/03/21 documented as of this encounter
--- OUTSIDE RECORDS SUMMARY | 2025-04-23 09:11 | XMS_ITS | Encounter Summary ---
Author Organization [employer]/[facility] Facility Care Team Providers Care Nurse Practitioner Physician Assistant Name Role Phone Keyshawn Clancy MD Primary Care Provider + [phone] Clare Núñez MD Unavailable [phone] Ranjit Pemberton MD Unavailable [phone] Emre Paz MD Unavailable [phone] Brayden Zarco MD Unavailable [phone] Madhu De Leon DO Primary Care Provider [phone] Encounter Details Date Type Department Care Team (Latest Contact Info) Description 01/23/2016 Orders Only [facility] CLINCONV Provider, MD Sandy [address] [place] [address] Social History Tobacco Use Types Packs/Day Years Used Date Smoking Tobacco: Never Assessed Comments Unknown Sex and Gender Information Value Date Recorded Sex Assigned at Not on file 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 Gender Identity Not on file Sexual Orientation [...] on filedocumented in this encounter Care Teams Nurse Practitioner Physician Assistant Relationship Specialty Start Date End Date Keyshawn Clancy MD [address] [place] [address] PCP - General 12/31/16 11/04/22 Madhu De Leon DO [address] [facility] [address] [place] [address] [address] PCP - General Family Medicine 11/05/22 Clare Núñez MD [address] [place] [address] Consulting Physician Radiation Oncology 06/16/18 Ranjit Pemberton MD [address] DE[place] [address] Otolaryngology 12/29/18 Emre Paz MD [address] [facility] [address] [place] [address] [address] Ware Finisher Cardiology 10/28/20 09/02/23 Brayden Zarco MD [address] [facility] [address] [place] [address] [address] Consulting Physician Hematology and Oncology 07/03/21 documented as of this encounter
--- OUTSIDE RECORDS SUMMARY | 2025-04-23 09:11 | XMS_ITS | Clinical Summary ---
Author Organization [facility] Address [address] [place] [address] Care Team Providers Care Seamer Operator Name Role Phone Clare Núñez MD Unavailable Ranjit Pemberton MD Unavailable [phone] Brayden Zarco MD Unavailable [phone] Madhu De Leon DO Primary Care Provider [phone] Allergies Active Allergy Reactions Criticality Noted Date Comments Selvin Inhibitors Unknown 03/17/2013 Latex Blisters High 06/18/2017 Penicillin G Rash Medium 06/18/2017 Medications metFORMIN (GLUCOPHAGE) 500 mg tablet Take 1 tablet (500 mg total) by mouth daily with breakfast 05/05/20 17 Active aspirin 81 mg enteric coated tablet 1 tablet (81 mg total) daily Active calcium carbonate-tonya min D3 (CALTRATE 600 + D) 1500 mg (600 mg elemental) -400 units per tablet Take by mouth daily Active atorvastatin (LIPITOR) 20 mg tablet Take 1 tablet (20 mg total) by mouth nightly 90 tablet 2 11/17/19 21 Active cyanocobalamin , vitamin B-12, (VITAMIN B-12 ORAL) Take by mouth Activ e hydroCHLOROthi azide (HYDRODIURIL) 25 mg tablet Take 1 tablet (25 mg total) by mouth daily 09/13/20 22 Active metoprolol XL (TOPROL-XL) 100 mg 24 hr tablet TAKE 1 TABLET BY MOUTH EVERY DAY 90 tablet 2 04/05/20 25 Active losartan (COZAAR) 100 mg tablet TAKE 1 TABLET BY MOUTH EVERY DAY 90 tablet 2 04/05/20 25 Active metoprolol XL (TOPROL-XL) 100 mg 24 hr tablet TAKE 1 TABLET BY MOUTH EVERY DAY 90 tablet 2 07/03/20 24 025 Discontinued losartan (COZAAR) 100 mg tablet TAKE 1 TABLET BY MOUTH EVERY DAY 90 tablet 1 10/02/19 25 025 Discontinued Active Problems Problem Noted Date Diagnosed Date Essential hypertension, benign 11/10/2021 Assessment & Plan (11/06/2022 10:57 AM MED CARE MANAGER): Blood pressure is well controlled. Continue current medications. Continue low- salt diet. Continue hydrochlorothiazide and losartan. Add Chem 7 to the yesterday's labs as she is on hydrochlorothiazide Abnormal chest x-ray 11/10/2021 Mixed hyperlipidemia 08/15/2021 Assessment & Plan (11/06/2022 10:56 AM MED CARE MANAGER): Recent lipid panel looks good along with LFTs. I reviewed with her. I will repeat her Chem 12 and lipids prior to next appointment. Continue heart healthy diet and also atorvastatin. Shortness of breath 08/15/2021 Coronary artery disease invo lving [place] coronary artery of [place] heart without angina pectoris 05/05/2021 Assessment & Plan (11/06/2022 10:55 AM MED CARE MANAGER): Clinically she has no angina. Continue aspirin. [...] Trivalent, IM (MDV) 07/04/2015,2013,07/08/2013 Influenza, Unspecified 06/24/2024,06/26/2021,09/2017 Hythiam (J&J) SARS-CoV-2 Vaccination 12/02/2020 Pneumococcal Conjugate 7-Valent 10/26/2014 Pneumococcal Polysaccharide PPV23 08/19/2003, TD Preservative Free 09/06/2008 ZOSTER LIVE 01/09/2017,01/15/2007 Surgical History Surgery Date Site/Laterality Comments BLADDER SURGERY BREAST LUMPECTOMY 2014 BREAST BIOPSY MASTECTOMY Right 50 years ago [...] Father Heart disease Mother Breast cancer Sister kendall Lung disease Sister kendall Diabetes Son Relation [...] on file Legal Sex Female 9:06 PM MED CARE MANAGER Gender Identity Not on file Sexual Orientation Not on file Obstetrics History Para Term AB IAB SAB Ectopic Multiple Livin g Live Births 2 2 2 Date Outcome GA Total Labor Labor/2nd/3rd Weight Sex Type Anes PTL Mary A1 A5 Name Clin Term Term Last Filed Vital Signs Vital Sign Reading Time Taken Comments Blood Pressure 110/60 11/27/2024 10:50 AM MED CARE MANAGER Pulse 71 11/27/2024 10:50 AM MED CARE MANAGER Temperature 36.3 C (97.3 F) 07/01/2024 10:19 AM CDT Respiratory Rate 20 07/01/2024 10:19 AM CDT Oxygen Saturation 98% 11/27/2024 10:50 AM MED CARE MANAGER Inhaled Oxygen Concentration - - Weight 44.5 kg (98 lb) 11/27/2024 10:50 AM MED CARE MANAGER Height 154.9 cm (5' 1) 11/27/2024 10:50 AM MED CARE MANAGER Body Mass Index 18.52 11/27/2024 10:50 AM MED CARE MANAGER Plan of Treatment Health Maintenance Due Date Last Done Comments Albumin Creatinine Ratio, Urine 1936 Depression Screening 1936 Fall Risk Assessment 1936 Osteoporosis Screening-Bone Density Scan 1936 Dilated Eye Exam 1936 Foot Exam 1936 Hepatitis B Screening 1954 Well Visit 65+ 2001 DTaP/Tdap/Td Vaccine (1 - Tdap) 09/07/2008 8 Zoster Vaccine (2 of 3) 03/06/2017 01/09/2017, 01/15 Hemoglobin A1C 11/15/2022 05/15/2022, 10/0 12/2020, 10/24/2020, Additional history exists Covid-19 Vaccine (3 2023-2 5 season) 2024 07/28/2021, 12/02/2020 Influenza Vaccine (#1) 2025 , 06/28/2022, 06/26/2021, Additional history exists Lipid Panel 11/20/2025 11/20/2024, 0810/2023, 11/26/2023, Additional history exists eGFR 11/20/2025 11/20/2024, 10/0 10/2023, 05/21/2024, Additional history exists Pneumococcal vaccine 65+ Completed 015, 08/19/2003, 08/12/1998 Procedures Procedure Name Priority Date/Time Associated Diagnosis Comments EGFR Routine 11/20/2024 10:44 AM MED CARE MANAGER Coronary artery disease involving [place] coronary artery of [place] heart without angina pectoris Essential hypertension, benign Mixed hyperlipidemia Hypercalcemia LIPID PANEL Routine 11/20/2024 10:44 AM MED CARE MANAGER Coronary artery disease involving [place] coronary artery of [place] heart without angina pectoris Essential hypertension, benign Mixed hyperlipidemia Hypercalcemia HEMOGLOBIN A1C Routine 05/15/2022 2:05 PM CDT Malignant neoplasm of lower-outer quadrant of left breast of female, estrogen receptor positive (HCC) Diabetes mellitus without complication (HCC) from Last 3 Months or Most Recently Relevant to Health Maintenance Results * (ABNORMAL) eGFR (11/20/2024 10:44 AM MED CARE MANAGER) eGFR 50(L) >=60 mL/min/1. 73 m2 Comment: [...] reviewed 2021. Blood 11/20/2024 10:4 4 AM MED CARE MANAGER 11/20/2024 10:57 AM MED CARE MANAGER Emre Paz MD LAB BLOOD ORDERABLES Final Result [facility] [id number] [facility] Department [place] [address] * Lipid panel (11/20/2024 10:44 AM MED CARE MANAGER) Cholesterol 178 30 - 199 mg/dL Comment: [...] on 2018. Triglycerides 60 <=149 mg/dL [facility] MARC Comment: Interpretive Data Ages < or = [...] NCEP Expert Panel. Circulation 2004;110:227 3. Jimmie Garcia al. JULIAN Cardiol. 2020 January 28;5(5):540-548. doi: [...] 2 [facility] Blood 11/20/2024 10:4 4 AM MED CARE MANAGER 11/20/2024 10:57 AM MED CARE MANAGER us Emre Paz MD LAB BLOOD ORDERABLES Final Result Performing Organization Address [facility] Co de Phone Number [id number] [facility] [place] [address] * (ABNORMAL) Hemoglobin A1c (05/15/2022 2:05 PM CDT) Hgb A1C 7.6(H) 4.0 - 5.6 % [facility] COUNTS INCLUDE 234 BEDS AT THE [facility] Estimated Average Glucose 171 mg/dL [facility] COUNTS INCLUDE 234 BEDS AT THE [facility] Comment: The ADA recommends reporting an estimated Average Glucose (eAG) with all Hemoglobin A1c results using the equation derived from a study of 507 normal and diabetic adults. Minority populations were underrepresented and children were not included. (Diabetes Care 31:0315-8857, 2008). The eAG is not equivalent to a fasting glucose. Blood 05/15/2022 2:05 PM CDT 05/15/2022 2:51 PM CDT Brayden Zarco MD LAB BLOOD ORDERABLES Final Re sult Performing Organization Address City/[facility]/ZIP Co de Phone Number [facility] [address] [facility] [place] [address] from Last 3 Months or Most Recently Relevant to Health Maintenance Insurance MEDICARE [facility] MEDICARE [facility] MEDICARE MEDICARE [facility] Care Teams Seamer Operator Relationship Specialty Start Date End Date Madhu De Leon DO [address] [place] [address] PCP - General Family Medicine 11/05/22 Clare Núñez MD Consulting Physician Radiation Oncology 06/16/18 Ranjit Pemberton MD [address] [place] [address] Otolaryngology 12/29/18 Brayden Zarco MD [address] [place] [address] Consulting Physician Hematology and Oncology 07/03/21
--- OUTSIDE RECORDS SUMMARY | 2025-04-23 09:11 | XMS_ITS | Continuity of Care Document ---
Author Organization [employer] [facility] Address [address] [address] [place] [address] Phone Care Team Providers Care Body Designer Name Role Phone Carlee MITTAL, Alexandru Unavailable Unavailable Allergies, Adverse Reactions, Alerts Substance Reaction Status Criticality poison oak extract Active No Inform ation cigarette smoke Active No Informati on latex Active No Information WINE FLAVOR Resolved No Information Medications Medication Instructions Dosage Effective Dates (start - stop) Status Comments Calcium 500 + D 500 mg (1,250 mg)-200 unit tablet take 1 tablet by oral route every day 1 tablet - Active atorvastatin 20 mg tablet take 1 tablet by oral route every day 20 MG - Active losartan 100 mg tablet take 1 tablet by oral route every day 100 MG - Active Kapspargo Sprinkle 50 mg capsule,extended release take 1 capsule by oral route every day 50 MG - Active metformin 500 mg tablet take 2 tablet by oral route every day with morning and evening meals 1000 MG - Active prednisolone acetate 1 % eye drops,suspension instill 1 drop in the operated eye QID x 1 week, TIDx 1 week, BID x 1 week then Qday x 1 week then stop - No Longer Active Vigamox 0.5 % eye drops Instill 1 drop in the operated eye QID x 1 week, and then TID until bottle runs out - No Longer Active ok to substitute Polytrim with same instructions 5ML bottle ketorolac 0.5 % eye drops instill 1 [...] Diagnoses Date Provider Providers Copied on Encounter [facility], [address] [place] [address] [address], [place], [place], [id number], [place] tel:[phone] SEC Braden NICOLE Professional Post-Op (chief complaint) Encounter for examination following surgery 0 Carlee Horvath. [address] [facility], 6th Floor, [place], [address], [place]. tel:[phone] [facility], [address] [place] [address] [address], [place], [place], [address], [place] tel:[phone] SEC Braden NICOLE Professional No Information 0 Nato Swanson. [address] [facility], [facility] [place], [place], [address], [place]. tel:[phone] [facility], [address] [place], [place], [place], [address], [place] tel:[phone] SEC Braden NICOLE Professional Post-Op (chief complaint) Encounter for examination following surgery 0 Carlee OD Alexandru. [address] [facility], [address]th [facility], [place], [address], [place]. tel:[phone] [facility], [address] [place], [place], [place], [address], [place] tel:[phone] SEC Braden NICOLE Professional 1 day s/p PCIOL (chief complaint) Encounter for examination following surgery 0 Carlee OD Alexandru. [address] [facility], [address] [facility], [place], [address], [place]. tel:[phone] [facility], [address] [place], [place], [place], [address], [place] tel:[phone] [facility] No Information 0 Nato Swanson. [address], [place], [place], [address], [place]. tel:[phone] [facility], [address] [place], [place], [place], [address], [place] tel:[phone] SEC Braden NICOLE Professional No Information 0 Nato Swanson. [address], [place], [place], [address], [place]. tel:[phone] [facility], [address] [place], [place], [place], [address], [place] tel:[phone] SEC Braden NICOLE Professional No Information 9 Nato Swanson. [address], [place], [place], [address], [place]. tel:[phone] [facility], [address] [place], [place], [place], [address], [place] tel:[phone] SEC Braden NICOLE Professional 2 wk CE PO (09/02/19) (chief complaint) Encounter for examination following surgery Dec-1 9 Carlee OD Alexandru. [address] [facility], [address] [facility], [place], [address], [place]. tel:[phone] [facility], [address] [place], [place], [place], [address], [place] tel:[phone] SEC Braden NICOLE Professional 1 day CE PO (09/02/19) (chief complaint) Encounter for examination following surgery Dec-0 9 Carlee OD Alexandru. [address] [facility], [address] [facility], [place], [address], [place]. tel:[phone] [facility], [address] [place] [address] [address], [place], [place], [address], [place] tel:[phone] [facility] No Information Dec-0 9 Nato Swanson. [address] [facility], [facility] [address], [place], [place], [address], [place]. tel:[phone] [facility], [address] [place], [place], [place], [address], [place] tel:[phone] SEC Braden NICOLE Professional No Information Dec-0 3 9 Nato Swanson. [address] [facility], [address], [place], [place], [address], [place]. tel:[phone] Office/outpa tient Visit, [facility], [address] [place], [place], [place], [address], [place] tel:[phone] SEC Braden NICOLE Professional Cataract Evaluation (chief complaint) Age-related nuclear cataract, right eyeCombined forms of age-related cataract, left eyeRPE mottling of maculaStatus post laser iridotomyPing uecula, left eye Nov-1 8-201 9 Nato Swanson. [address], [place], [place], [address], [place]. tel:[phone] Office/outpa [place]ient Visit, [facility] [address] [place], [place], [place], [address], [place] [phone] SEC Braden NICOLE Professional Post-Op (chief complaint) Anatomical narrow angle, left eyeAnatomical narrow angle, right eyeAge-relate d nuclear cataract, bilateral 9 Nato Swanson. [address], [address], [place], [place], [address], [place]. tel:[phone] [facility], [address] [place] [address], [place], [place], [address], [place] [phone] SEC Braden NICOLE Professional Follow up visit (chief complaint) Anatomical narrow angle, left eyeEncounter for examination following surgery Dec- Nato Swanson. [address], [address], [place], [place], [address], [place]. tel:[phone] Office/outpa tient Visit, [facility], [address], [place], [place], [address], [place] [phone] SEC Braden NICOLE Professional Cataract evaluation (chief complaint) Endothelial corneal dystrophyAge- related nuclear cataract, bilateralAnat omical narrow angle, right eyeAnatomical narrow angle, left eye Dec- 9 Nato Swanson. [address], [address], [place], [place], [address], [place]. tel:[phone] Specialist : Jerrell Zarco MD, [address] [place], [address]. tel:[phone] Family History Family Member Type Diagnosis Age At Onset Mother Problem (finding) Diabetes mellitus Payers Payer name Insurance type Covered democrat ID Authoriza tion(s) No Information Social History [...] Pt reports trouble seeing small print on [employer] boxes x many years. Pt is worried about having surgery [facility]. Post-Op The 83 year old female presents [...]
--- OUTSIDE RECORDS SUMMARY | 2025-04-23 09:11 | XMS_ITS | Clinical Summary ---
Author Organization [facility] Address [address] [place] [address] Care Team Providers Care Comic Book Artist Name Role Phone Keyshawn Clancy MD Primary Care Provider [phone] Allergies Active Allergy Reactions Criticality Noted Date [...] complication, without long-term current use of insulin ([facility]) 10/26/2014 Overview (05/05/2019): Description: 08/2001 [...] (Generic) 06/26/2021, 9,06/30/2018,2014 Influenza Adult (Generic) 06/30/2018,,07/04/2015,2013,07/08/2013,06/23/2012,07/06/2011 Workiva (tydy & tydy) COVID-19 AD26 VACCINE 0.5 ML IM SUSP 12/02/2020 Transpond COVID-19 (ORIGINAL FORMULATION, PURPLE CAP) mRNA, LNP-S, PF, 30 MCG/0.3 ML DOSE 07/28/2021 Pneumococcal (Pneumovax 23) 08/19/2003, 8 Pneumococcal (Prevnar 7) 10/26/2014 Td (Tenivac) preservative free 09/06/2008 Zoster (Zostavax) [address] Unt/0.65Ml 01/09/2017, Social History Tobacco Use Types [...] Comments Blood Pressure 154/70 11/28/2021 1:27 PM RESIDENTIAL CARPENTER Pulse 72 11/24/2020 10:05 AM RESIDENTIAL CARPENTER Temperature - - Respiratory Rate - - Oxygen Saturation - - Inhaled Oxygen Concentration - - Weight 46.7 kg (103 lb) 11/28/2021 1:27 PM RESIDENTIAL CARPENTER Height 153 cm (5' 0.25) 11/28/2021 1:27 PM RESIDENTIAL CARPENTER Body Mass Index 19.95 11/28/2021 1:27 PM RESIDENTIAL CARPENTER Plan of Treatment Health Maintenance Due Date [...] Comments HEMOGLOBIN, GLYCOSYLATED Routine 08/14/2021 11:24 AM RESIDENTIAL CARPENTER Type 2 diabetes mellitus without complication, without long-term current use of insulin Essential hypertension LIPID PANEL Routine 11/15/2016 11:03 AM RESIDENTIAL CARPENTER from Last 3 Months or Most Recently Relevant to Health Maintenance Results * (ABNORMAL) HEMOGLOBIN, GLYCOSYLATED (08/14/2021 11:24 AM RESIDENTIAL CARPENTER) HGB A1C 7.8(A) 4.2 - 6.5 % [facility] 08/14/2021 11:2 4 AM RESIDENTIAL CARPENTER us Keyshawn Clancy MD LABORATORY Final Resul t [facility] [address] [facility] [address] [place] [id number], * LIPID PANEL (11/15/2016 11:03 AM RESIDENTIAL CARPENTER) CHOLESTEROL 141 100 - 199 mg/dL TOUCHWORKS TO EPIC CONVERSION TRIGLYCERIDES 108 0 - 149 mg/dL TOUCHWORKS TO EPIC CONVERSION HDL 70 >39 mg/dL TOUCHWORKS TO EPIC CONVERSION VLDL CALCULATION 22 5 - 40 mg/dL TOUCHWORKS TO EPIC CONVERSION LDL (CALCULATED) 49 0 - 99 mg/dL TOUCHWORKS TO EPIC CONVERSION COMMENT TOUCHWORKS TO EPIC CONVERSION 11/15/2016 11:0 3 AM RESIDENTIAL CARPENTER 11/15/2016 11:03 AM RESIDENTIAL CARPENTER Narrative TOUCHWORKS TO EPIC CONVERSION - 11/16/2016 5:11 AM RESIDENTIAL CARPENTER Result Communication: Call patient with results us Keyshawn Clancy MD LABORATORY Final Resul t TOUCHWORKS TO EPIC CONVERSION from Last 3 Months or Most Recently Relevant to Health Maintenance Insurance MEDICARE [facility] Care Teams Comic Book Artist Relationship Specialty Start Date End Date Keyshawn Clancy MD [address] [address] PCP - General 12/03/16
--- OUTSIDE RECORDS SUMMARY | 2025-04-23 09:11 | XMS_ITS | Referral Summary ---
Author Organization [facility] Address [address] [place] [address] Care Team Providers Care Tree Marker Name Role Phone Clare Núñez MD Unavailable [phone] Ranjit Pemberton MD Unavailable [phone] Brayden Zarco MD Unavailable [phone] Madhu De Leon DO Primary Care Provider [phone] Allergies Active Allergy Reactions Criticality Noted Date [...] 11/10/2021 Assessment & Plan (11/06/2022 10:57 AM GETTER FILLER): Blood pressure is well controlled. Continue current medications. Continue low- salt diet. Continue hydrochlorothiazide and losartan. Add Chem 7 to the yesterday's labs as she is on hydrochlorothiazide Abnormal chest x-ray 11/10/2021 Mixed hyperlipidemia 08/15/2021 Assessment & Plan (11/06/2022 10:56 AM GETTER FILLER): Recent lipid panel looks good along with LFTs. I reviewed with her. I will repeat her Chem 12 and lipids prior to next appointment. Continue heart healthy diet and also atorvastatin. 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 Continue aspirin. [...] Trivalent, IM (MDV) 07/04/2015,2013,07/08/2013 Influenza, Unspecified 06/24/2024,06/26/2021,09/2017 Fluentify (J&J) SARS-CoV-2 Vaccination 12/02/2020 Pneumococcal Conjugate 7-Valent [...] on file Legal Sex Female 9:06 PM GETTER FILLER Gender Identity Not on file Sexual Orientation Not on file Last Filed Vital Signs Vital Sign Reading Time Taken Comments Blood Pressure 110/60 11/27/2024 10:50 AM GETTER FILLER Pulse 71 11/27/2024 10:50 AM GETTER FILLER Temperature 36.3 C (97.3 F) 07/01/2024 10:19 AM CDT Respiratory Rate 20 07/01/2024 10:19 AM CDT Oxygen Saturation 98% 11/27/2024 10:50 AM GETTER FILLER Inhaled Oxygen Concentration - - Weight 44.5 kg (98 lb) 11/27/2024 10:50 AM GETTER FILLER Height 154.9 cm (5' 1) 11/27/2024 10:50 AM GETTER FILLER Body Mass Index 18.52 11/27/2024 10:50 AM GETTER FILLER Plan of Treatment Not on file Procedures Procedure Name Priority Date/Time Associated Diagnosis Comments EGFR Routine 11/20/2024 10:44 AM GETTER FILLER Coronary artery disease involving [place] coronary artery of [place] heart without angina pectoris Essential hypertension, benign Mixed hyperlipidemia Hypercalcemia LIPID PANEL Routine 11/20/2024 10:44 AM GETTER FILLER Coronary artery disease involving [place] coronary artery of [place] heart without angina pectoris Essential hypertension, benign Mixed hyperlipidemia Hypercalcemia HEMOGLOBIN A1C Routine 05/15/2022 2:05 PM CDT Malignant neoplasm of lower-outer quadrant of left breast of female, estrogen receptor positive (HCC) Diabetes mellitus without complication (HCC) from Last 3 Months or Most Recently Relevant to Health Maintenance Results * (ABNORMAL) eGFR (11/20/2024 10:44 AM GETTER FILLER) eGFR 50(L) >=60 mL/min/1. 73 m2 Comment: [...] reviewed 2021. Blood 11/20/2024 10:4 4 AM GETTER FILLER 11/20/2024 10:57 AM GETTER FILLER us Emre Paz MD LAB BLOOD ORDERABLES Final Result [facility] [address] [facility] Department [place] [address] * Lipid panel (11/20/2024 10:44 AM GETTER FILLER) Cholesterol 178 30 - 199 mg/dL Comment: [...] last revised on 2018. [facility] 2 [facility] Blood 11/20/2024 10:4 4 AM GETTER FILLER 11/20/2024 10:57 AM GETTER FILLER us Emre Paz MD LAB BLOOD ORDERABLES Final Result Performing Organization Address [facility] Co de Phone Number [facility] [address] [facility] [place] [address] * (ABNORMAL) Hemoglobin A1c (05/15/2022 2:05 PM CDT) Hgb A1C 7.6(H) 4.0 - 5.6 % [facility]) Estimated Average Glucose 171 mg/dL [facility] ([place] Comment: The ADA recommends reporting an estimated Average Glucose (eAG) with all Hemoglobin A1c results using the equation derived from a study of 507 normal and diabetic adults. Minority populations were underrepresented and children were not included. (Diabetes Care 31:5620-4021, 2008). The eAG is not equivalent to a fasting glucose. Blood 05/15/2022 2:05 PM CDT 05/15/2022 2:51 PM CDT Brayden Zarco MD LAB BLOOD ORDERABLES Final Re sult Performing Organization Address City/[facility]/ZIP Co de Phone Number [facility] ([place]) [address] [facility] [place] [address] from Last 3 Months or Most Recently Relevant to Health Maintenance Insurance MEDICARE [facility] MEDICARE [facility] MEDICARE MEDICARE [facility] Care Teams Tree Marker Relationship Specialty Start Date End Date Madhu De Leon DO [address] [place] [address] PCP - General Family Medicine 11/05/22 Clare Núñez MD Consulting Physician Radiation Oncology 06/16/18 Ranjit Pemberton MD [address] [place] [address] Otolaryngology 12/29/18 Brayden Zarco MD [address] [place] [address] Consulting Physician Hematology and Oncology 07/03/21
--- OUTSIDE RECORDS SUMMARY | 2025-04-23 09:11 | XMS_ITS | Encounter Summary ---
Author Organization [facility] Facility Care Team Providers Care Grinder Tender Name Role Phone Keyshawn Clancy MD Primary Care Provider + [phone] Clare Núñez MD Unavailable [phone] Ranjit Pemberton MD Unavailable [phone] Emre Paz MD Unavailable [phone] Brayden Zarco MD Unavailable [phone] Madhu De Leon DO Primary Care Provider [phone] Encounter Details Date Type Department Care Team (Latest Contact Info) Description 03/07/2018 Orders Only [facility] CLINCONV Provider, MD Sandy [address] [place] [address] Social History Tobacco Use Types Packs/Day Years Used Date Smoking Tobacco: Never Smokeless Tobacco: Never Comments Unknown Sex and Gender Information Value Date Recorded Sex Assigned at Not on file Legal Sex Female 9:06 PM SAMPLE FINISHER Gender Identity Not on file Sexual Orientation [...] on filedocumented in this encounter Care Teams Grinder Tender Relationship Specialty Start Date End Date Keyshawn Clancy MD [address] [place] [address] PCP - General 12/31/16 11/04/22 Madhu De Leon DO [address] [facility] [address] [address] PCP - General Family Medicine 11/05/22 Clare Núñez MD [address] [place] [address] Consulting Physician Radiation Oncology 06/16/18 Ranjit Pemberton MD [address] [place] [address] Otolaryngology 12/29/18 Emre Paz MD [address] [facility] [address] [address] String Winding Machine Operator Cardiology 10/28/20 09/02/23 Brayden Zarco MD [address] [facility] [address] [address] Consulting Physician Hematology and Oncology 07/03/21 documented as of this encounter
--- OUTSIDE RECORDS SUMMARY | 2025-04-23 09:11 | XMS_ITS | Encounter Summary ---
Author Organization [facility] Facility Care Team Providers Care Speeder Worker Name Role Phone Keyshawn Clancy MD Primary Care Provider + [phone] Clare Núñez MD Unavailable [phone] Ranjit Pemberton MD Unavailable [phone] Emre Paz MD Unavailable [phone] Brayden Zarco MD Unavailable [phone] Madhu De Leon DO Primary Care Provider [phone] Encounter Details Date Type Department Care Team (Latest Contact Info) Description 04/12/2015 Orders Only [facility] CLINCONV Provider, MD Sandy [address] [place] [address] Social History Tobacco Use Types Packs/Day Years Used Date Smoking Tobacco: Never Assessed Comments Unknown Sex and Gender Information Value Date Recorded Sex Assigned at Not on file Legal Sex Female 9:06 PM DATABASE TESTER Gender Identity Not on file Sexual Orientation [...] on filedocumented in this encounter Care Teams Speeder Worker Relationship Specialty Start Date End Date Keyshawn Clancy MD [address] [place] [address] PCP - General 12/31/16 11/04/22 Madhu De Leon DO [address] [facility] [address] [address] PCP - General Family Medicine 11/05/22 Clare Núñez MD [address] [place] [address] Consulting Physician Radiation Oncology 06/16/18 Ranjit Pemberton MD [address] [place] [address] Otolaryngology 12/29/18 Emre Paz MD [address] [facility] [address] [address] Driver Manager Cardiology 10/28/20 09/02/23 Brayden Zarco MD [address] [facility] [address] [address] Consulting Physician Hematology and Oncology 07/03/21 documented as of this encounter
--- OUTSIDE RECORDS SUMMARY | 2025-04-23 09:11 | XMS_ITS | Encounter Summary ---
Author Organization [facility] Facility Care Team Providers Care Tree Thinner Name Role Phone Keyshawn Clancy MD Primary Care Provider + [phone] Clare Núñez MD Unavailable [phone] Ranjit Pemberton MD Unavailable [phone] Emre Paz MD Unavailable [phone] Brayden Zarco MD Unavailable [phone] Madhu De Leon DO Primary Care Provider [phone] Encounter Details Date Type Department Care Team (Latest Contact Info) Description 07/12/2016 Orders Only [facility] CLINCONV Provider, MD Sandy [address] [place] [address] Social History Tobacco Use Types Packs/Day Years Used Date Smoking Tobacco: Never Assessed Comments Unknown Sex and Gender Information Value Date Recorded Sex Assigned at Not on file Legal Sex Female 9:06 PM FORM COVERER Gender Identity Not on file Sexual Orientation [...] on filedocumented in this encounter Care Teams Tree Thinner Relationship Specialty Start Date End Date Keyshawn Clancy MD [address] [place] [address] PCP - General 12/31/16 11/04/22 Madhu De Leon DO [address] [facility] [address] [place] [address] PCP - General Family Medicine 11/05/22 Clare Núñez MD [address] [place] [address] Consulting Physician Radiation Oncology 06/16/18 Ranjit Pemberton MD [address] [place] [address] Otolaryngology 12/29/18 Emre Paz MD [address] [facility] [address] [place] [address] Laser Beam Cutter Cardiology 10/28/20 09/02/23 Brayden Zarco MD [address] [facility] [facility] [address] [address] Consulting Physician Hematology and Oncology 07/03/21 documented as of this encounter
--- OUTSIDE RECORDS SUMMARY | 2025-04-23 09:11 | XMS_ITS | Encounter Summary ---
Author Organization [facility] Facility Care Team Providers Care Corporate Travel Coordinator Name Role Phone Keyshawn Clancy MD Primary Care Provider + [phone] Clare Núñez MD Unavailable [phone] Ranjit Pemberton MD Unavailable [phone] Emre Paz MD Unavailable [phone] Brayden Zarco MD Unavailable [phone] Madhu De Leon DO Primary Care Provider [phone] Encounter Details Date Type Department Care Team (Latest Contact Info) Description 10/29/2018 Orders Only [facility] CLINCONV Provider, MD Sandy [address] [place] [address] Social History Tobacco Use Types Packs/Day Years Used Date Smoking Tobacco: Never Smokeless Tobacco: Never Comments Unknown Sex and Gender Information Value Date Recorded Sex Assigned at Not on file Legal Sex Female 9:06 PM CERTIFIED OPHTHALMIC SURGICAL ASSISTANT Gender Identity Not on file Sexual Orientation Not on file documented as of this encounter Plan of Treatment Not on file documented as of this encounter Procedures Procedure Name Priority Date/Time Associated Diagnosis Comments SCAN - LABS 10/30/2018 12:00 AM CERTIFIED OPHTHALMIC SURGICAL ASSISTANT documented in this encounter Results * SCAN - LABS (10/30/2018 12:00 AM CERTIFIED OPHTHALMIC SURGICAL ASSISTANT) Narrative 10/30/2018 12:00 AM CERTIFIED OPHTHALMIC SURGICAL ASSISTANT Ordered by an unspecified provider. Historical Provider Final Res ult documented in this encounter Visit Diagnoses Not on filedocumented in this encounter Care Teams Corporate Travel Coordinator Relationship Specialty Start Date End Date Keyshawn Clancy MD [address] [place] [address] PCP - General 12/31/16 11/04/22 Madhu De Leon DO [address] [facility] [address] [place] [address] PCP - General Family Medicine 11/05/22 Clare Núñez MD [address] [place] [address] Consulting Physician Radiation Oncology 06/16/18 Ranjit Pemberton MD [address] [place] [address] Otolaryngology 12/29/18 Emre Paz MD [address] [facility] [address] [place] [address] Delivery Merchandiser Cardiology 10/28/20 09/02/23 Brayden Zarco MD [address] [facility] [address] [place] [address] Consulting Physician Hematology and Oncology 07/03/21 documented as of this encounter
[2025-04-23 10:33] LABS: Alanine Aminotransferase 13 U/L (6-35); Albumin Level 4.3 g/dL (3.5-5.1); Alkaline Phosphatase 48 U/L (38-126); Anion Gap 9 mmol/L (4-12); Aspartate Amino Transferase 25 U/L (14-36); Bilirubin,Total 0.6 mg/dL (0.2-1.3); Blood Urea Nitrogen 32 mg/dL (7-17); Calcium 10.8 mg/dL (8.4-10.2); Carbon Dioxide 33 mmol/L (22-30); Chloride 90 mmol/L (98-107); Cholesterol 167 mg/dL (0-200); Estimated Glomerular Filt Rate 38; Glucose 158 mg/dL (65-110); HDL Direct 74 mg/dL; Potassium 3.5 mmol/L (3.4-5.0); Sodium 132 mmol/L (137-145); Total Protein 7.2 g/dL (6.3-8.2); Triglycerides 72 mg/dL (<150)
[2025-04-23 10:50] LABS: Free T4 Free Thyroxine 1.57 ng/dL (0.78-2.19)
[2025-04-23 11:09] LABS: Thyroid Stimulating Hormone 2.340 uIU/mL (0.465-4.680)
[2025-04-23 14:42] LABS: MALB Creatinine Ratio 71.2 mg/g (0-30)
[2025-04-27 15:09] LABS: GAD-65 Antibody <5.0 U/mL (0.0-5.0)
== END 2025-04-23 09:02 | disposition home or self-care (01) ==
PROVIDERS: PCP Family Medicine; Referring Provider Internal Medicine; Visit Provider Physician Assistant
DX: R63.4 Abnormal weight loss (principal); I10 Essential (primary) hypertension; E11.9 Type 2 diabetes mellitus without complications; E78.5 Hyperlipidemia, unspecified
CPT/HCPCS: 36415; 80053; 80061; 82043; 84439; 84443; 84681; 86341

== ENCOUNTER 2025-05-03 10:38 | Outpatient (CLI) | payer MEDICARE, BC, SELFPAY ==
--- NOTE | ~2025-05-03 | US_ITS ---
US thyroid INDICATION: Abnormal weight loss TECHNIQUE: Real-time sonographic images of the thyroid gland were obtained. COMPARISON: No prior studies for comparison. FINDINGS: The right thyroid lobe measures 5.5 x 3 x 3.0 cm. The left thyroid lobe measures 3.9 x 1.6 x 1.9 cm. Thyroid echotexture is diffusely heterogeneous with multiple cystic and solid masses. Larg est dominant mass in the right lobe is mostly solid, hypoechoic, wider than tall, smoothly marginated without echogenic foci measuring 1.9 x 1.7 x 0.8 cm, TR 4. Increased vascular flow is present. IMPRESSION: 1. Multiple bilateral thyroid cysts and right breast masses, largest dominant mass measures 1.9 cm, TR 4. Recommend ultrasound-guided fine-needle aspiration biopsy. Reviewed, dictated and finalized at location A.
== END 2025-05-03 10:39 | disposition home or self-care (01) ==
LOC: GOSHIMG 10:38
PROVIDERS: PCP Internal Medicine; Visit Provider Internal Medicine
DX: R63.4 Abnormal weight loss (principal); E11.9 Type 2 diabetes mellitus without complications; E04.1 Nontoxic single thyroid nodule; I10 Essential (primary) hypertension; R63.6 Underweight; R73.09 Other abnormal glucose; E78.5 Hyperlipidemia, unspecified
CPT/HCPCS: 76536

== ENCOUNTER 2025-05-03 11:00 | Outpatient (CLI) | payer MEDICARE, BC, SELFPAY ==
--- OUTSIDE RECORDS SUMMARY | 2025-05-03 11:30 | XMS_ITS | Encounter Summary ---
Author Organization [facility] Care Team Providers Care Chainstitch Pants Outseamer Name Role Phone Keyshawn Clancy MD Primary Care Provider + [phone] Clare Núñez MD Unavailable [phone] Ranjit Pemberton MD Unavailable [phone] Emre Paz MD Unavailable [phone] Brayden Zarco MD Unavailable [phone] Madhu De Leon DO Primary Care Provider [phone] Encounter Details Date Type Department Care Team (Latest Contact Info) Description 07/12/2016 Orders Only [facility]G CLINCONV Provider, MD Sandy [address] [place] [address] Social History Tobacco Use Types Packs/Day Years Used Date Smoking Tobacco: Never Assessed Comments Unknown Sex and Gender Information Value Date Recorded Sex Assigned at Not on file Legal Sex Female 9:06 PM GYM ATTENDANT Gender Identity Not on file Sexual Orientation [...] on filedocumented in this encounter Care Teams Chainstitch Pants Outseamer Relationship Specialty Start Date End Date Keyshawn Clancy MD [address] [place] [address] PCP - General 12/31/16 11/04/22 Madhu De Leon DO [address] [facility] [address] [place] [address] [address] PCP - General Family Medicine 11/05/22 Clare Núñez MD [address] [place] [address] Consulting Physician Radiation Oncology 06/16/18 Ranjit Pemberton MD [address] DE[place] [address] Otolaryngology 12/29/18 Emre Paz MD [address] [facility] [address] [place] [address] [address] Shear Operator Helper Cardiology 10/28/20 09/02/23 Brayden Zarco MD [address] [facility] [address] [place] [address] [address] Consulting Physician Hematology and Oncology 07/03/21 documented as of this encounter
--- OUTSIDE RECORDS SUMMARY | 2025-05-03 11:30 | XMS_ITS | Encounter Summary ---
Author Organization [facility] Facility Care Team Providers Care Lead Nurse Name Role Phone Keyshawn Clancy MD Primary Care Provider + [phone] Clare Núñez MD Unavailable [phone] Ranjit Pemberton MD Unavailable [phone] Emre Paz MD Unavailable +[phone] Brayden Zarco MD Unavailable [phone] Madhu De Leon DO Primary Care Provider [phone] Encounter Details Date Type Department Care Team (Latest Contact Info) Description 08/27/2017 Orders Only MMG CLINCONV Provider, MD Sandy [address] [place] [address] Social History Tobacco Use Types Packs/Day Years Used Date Smoking Tobacco: Never Smokeless Tobacco: Never Comments Unknown Sex and Gender Information Value Date Recorded Sex Assigned at Not on file Legal Sex Female 9:06 PM BUTTON AND BUCKLE MAKER Gender Identity Not on file Sexual Orientation Not on file documented as of this encounter Plan of Treatment Not on file documented as of this encounter Procedures Procedure Name Priority Date/Time Associated Diagnosis Comments SCAN - LABS 09/04/2017 12:00 AM BUTTON AND BUCKLE MAKER documented in this encounter Results * SCAN - LABS (09/04/2017 12:00 AM BUTTON AND BUCKLE MAKER) Narrative 09/04/2017 12:00 AM BUTTON AND BUCKLE MAKER Ordered by an unspecified provider. Historical Provider Final Res ult documented in this encounter Visit Diagnoses Not on filedocumented in this encounter Care Teams Lead Nurse Relationship Specialty Start Date End Date Keyshawn Clacny MD [address] [place] [address] PCP - General 12/31/16 11/04/22 Madhu De Leon DO [address] [facility] [address] [place] [address] [address] PCP - General Family Medicine 11/05/22 Clare Núñez MD [address] [place] [address] Consulting Physician Radiation Oncology 06/16/18 Ranjit Pemberton MD [address] [place] [address] Otolaryngology 12/29/18 Emre Paz MD [address] [facility] [address] [place] [address] [address] Paraprofessional Aide Teacher Cardiology 10/28/20 09/02/23 Brayden Zarco MD [address] [facility] [address] [place] [address] [address] Consulting Physician Hematology and Oncology 07/03/21 documented as of this encounter
--- OUTSIDE RECORDS SUMMARY | 2025-05-03 11:30 | XMS_ITS | Encounter Summary ---
Author Organization [facility] Facility Care Team Providers Care Traffic Engineering Director Name Role Phone Keyshawn Clancy MD Primary Care Provider + [phone] Clare Núñez MD Unavailable [phone] Ranjit Pemberton MD Unavailable [phone] Emre Paz MD Unavailable [phone] Brayden Zarco MD Unavailable [phone] Madhu De Leon DO Primary Care Provider [phone] Encounter Details Date Type Department Care Team (Latest Contact Info) Description 04/12/2015 Orders Only MMG CLINCONV Provider, MD Sandy [address] [place] [address] Social History Tobacco Use Types Packs/Day Years Used Date Smoking Tobacco: Never Assessed Comments Unknown Sex and Gender Information Value Date Recorded Sex Assigned at Not on file Legal Sex Female 9:06 PM DOG TRAINER Gender Identity Not on file Sexual Orientation [...] on filedocumented in this encounter Care Teams Traffic Engineering Director Relationship Specialty Start Date End Date Keyshawn Clancy MD [address] [place] [address] PCP - General 12/31/16 11/04/22 Madhu De Leon DO [address] [facility] [address] [place] [address] [address] PCP - General Family Medicine 11/05/22 Clare Núñez MD [address] [place] [address] Consulting Physician Radiation Oncology 06/16/18 Ranjit Pemberton MD [address] [place] [address] Otolaryngology 12/29/18 Emre Paz MD [address] [facility] [address] [place] [address] [address] Medical Affairs Director Cardiology 10/28/20 09/02/23 Brayden Zarco MD [address] [facility] [address] [place] [address] [address] Consulting Physician Hematology and Oncology 07/03/21 documented as of this encounter
--- OUTSIDE RECORDS SUMMARY | 2025-05-03 11:30 | XMS_ITS | Encounter Summary ---
Author Organization [facility] Facility Care Team Providers Care Hotel Night Auditor Name Role Phone Keyshawn Clancy MD Primary Care Provider + [phone] Clare Núñez MD Unavailable [phone] Ranjit Pemberton MD Unavailable [phone] mEre Paz MD Unavailable [phone] Brayden Zarco MD Unavailable [phone] Madhu De Leon DO Primary Care Provider [phone] Encounter Details Date Type Department Care Team (Latest Contact Info) Description 03/07/2018 Orders Only MMG CLINCONV Provider, MD Sandy [address] [place] [address] Social History Tobacco Use Types Packs/Day Years Used Date Smoking Tobacco: Never Smokeless Tobacco: Never Comments Unknown Sex and Gender Information Value Date Recorded Sex Assigned at Not on file Legal Sex Female 9:06 PM CHIMNEY SUPERVISOR BRICK Gender Identity Not on file Sexual Orientation [...] on filedocumented in this encounter Care Teams Hotel Night Auditor Relationship Specialty Start Date End Date Keyshawn Clancy MD [address] [place] [address] PCP - General 12/31/16 11/04/22 Madhu De Leon DO [address] [facility] [address] [place] [address] [address] PCP - General Family Medicine 11/05/22 Clare Núñez MD [address] [place] [address] Consulting Physician Radiation Oncology 06/16/18 Ranjit Pemberton MD [address] [place] [address] Otolaryngology 12/29/18 Emre Paz MD [address] [facility] [address] [place] [address] [address] Ultrasound Tech Cardiology 10/28/20 09/02/23 Brayden Zarco MD [address] [facility] [address] [place] [address] [address] Consulting Physician Hematology and Oncology 07/03/21 documented as of this encounter
--- OUTSIDE RECORDS SUMMARY | 2025-05-03 11:30 | XMS_ITS | Encounter Summary ---
Author Organization [facility] Facility Care Team Providers Care Microsoft Bi Architect Name Role Phone Keyshawn Clancy MD Primary Care Provider + [phone] Clare Núñez MD Unavailable [phone] Ranjit Pemberton MD Unavailable [phone] Emre Paz MD Unavailable [phone] Brayden Zarco MD Unavailable [phone] Madhu De Leon DO Primary Care Provider [phone] Encounter Details Date Type Department Care Team (Latest Contact Info) Description 05/17/2016 Orders Only MMG CLINCONV Provider, MD Sandy [address] [place] [address] Social History Tobacco Use Types Packs/Day Years Used Date Smoking Tobacco: Never Assessed Comments Unknown Sex and Gender Information Value Date Recorded Sex Assigned at Not on file Legal Sex Female 9:06 PM BACK TENDER PULP DRIER Gender Identity Not on file Sexual Orientation [...] on filedocumented in this encounter Care Teams Microsoft Bi Architect Relationship Specialty Start Date End Date Keyshawn Clancy MD [address] [place] [address] PCP - General 12/31/16 11/04/22 Madhu De Leon DO [address] [facility] [address] [place] [address] [address] PCP - General Family Medicine 11/05/22 Claer Núñez MD [address] [place] [address] Consulting Physician Radiation Oncology 06/16/18 Ranjit Pemberton MD [address] [place] [address] Otolaryngology 12/29/18 Emre Paz MD [address] [facility] [address] [place] [address] [address] Radiological Metallurgist Cardiology 10/28/20 09/02/23 Brayden Zarco MD [address] [facility] [address] [place] [address] [address] Consulting Physician Hematology and Oncology 07/03/21 documented as of this encounter
--- OUTSIDE RECORDS SUMMARY | 2025-05-03 11:30 | XMS_ITS | Encounter Summary ---
Author Organization [facility] Facility Care Team Providers Care Objects Conservator Name Role Phone Keyshawn Clancy MD Primary Care Provider + [phone] Clare Núñez MD Unavailable [phone] Ranjit Pemberton MD Unavailable [phone] Emre Paz MD Unavailable [phone] Brayden Zarco MD Unavailable [phone] Madhu De Leon DO Primary Care Provider [phone] Encounter Details Date Type Department Care Team (Latest Contact Info) Description 01/23/2016 Orders Only MMG CLINCONV Provider, MD Sandy [address] [place] [address] Social History Tobacco Use Types Packs/Day Years Used Date Smoking Tobacco: Never Assessed Comments Unknown Sex and Gender Information Value Date Recorded Sex Assigned at Not on file Legal Sex Female 9:06 PM MEDICAL OFFICE SPECIALIST Gender Identity Not on file Sexual Orientation [...] on filedocumented in this encounter Care Teams Objects Conservator Relationship Specialty Start Date End Date Keyshawn Clancy MD [address] [place] [address] PCP - General 12/31/16 11/04/22 Madhu De Leon DO [address] [facility] [address] [place] [address] [address] PCP - General Family Medicine 11/05/22 Clare Núñez MD [address] [place] [address] Consulting Physician Radiation Oncology 06/16/18 Ranjit Pemberton MD [address] [place] [address] Otolaryngology 12/29/18 Emre Paz MD [address] [facility] [address] [place] [address] [address] Take Off Man Cardiology 10/28/20 09/02/23 Brayden Zarco MD [address] [facility] [address] [place] [address] [address] Consulting Physician Hematology and Oncology 07/03/21 documented as of this encounter
--- OUTSIDE RECORDS SUMMARY | 2025-05-03 11:30 | XMS_ITS | Clinical Summary ---
Author Organization [facility] Address [address] [place] [address] Care Team Providers Care Grit Blaster Name Role Phone Keyshawn Clancy MD Primary Care Provider [phone] Allergies Active Allergy Reactions Criticality Noted Date [...] complication, without long-term current use of insulin ([facility]) 10/26/2014 Overview (05/05/2019): Description: 08/2001 [...] (Generic) 06/26/2021, 9,06/30/2018,2014 Influenza Adult (Generic) 06/30/2018,,07/04/2015,2013,07/08/2013,06/23/2012,07/06/2011 [employer] ([employer]) COVID-19 AD26 VACCINE 0.5 ML IM SUSP 12/02/2020 [place] COVID-19 (ORIGINAL FORMULATION, PURPLE CAP) mRNA, LNP-S, PF, 30 MCG/0.3 ML DOSE 07/28/2021 Pneumococcal (Pneumovax 23) 08/19/2003, 8 Pneumococcal (Prevnar 7) 10/26/2014 Td (Tenivac) preservative free 09/06/2008 Zoster (Zostavax) [address] Unt/0.65Ml 01/09/2017, Social History Tobacco Use Types [...] Comments Blood Pressure 154/70 11/28/2021 1:27 PM SECRETARY SPECIALIST Pulse 72 11/24/2020 10:05 AM SECRETARY SPECIALIST Temperature - - Respiratory Rate - - Oxygen Saturation - - Inhaled Oxygen Concentration - - Weight 46.7 kg (103 lb) 11/28/2021 1:27 PM SECRETARY SPECIALIST Height 153 cm (5' 0.25) 11/28/2021 1:27 PM SECRETARY SPECIALIST Body Mass Index 19.95 11/28/2021 1:27 PM SECRETARY SPECIALIST Plan of Treatment Health Maintenance Due Date [...] Comments HEMOGLOBIN, GLYCOSYLATED Routine 08/14/2021 11:24 AM SECRETARY SPECIALIST Type 2 diabetes mellitus without complication, without long-term current use of insulin Essential hypertension LIPID PANEL Routine 11/15/2016 11:03 AM SECRETARY SPECIALIST from Last 3 Months or Most Recently Relevant to Health Maintenance Results * (ABNORMAL) HEMOGLOBIN, GLYCOSYLATED (08/14/2021 11:24 AM SECRETARY SPECIALIST) HGB A1C 7.8(A) 4.2 - 6.5 % [facility] 08/14/2021 11:2 4 AM SECRETARY SPECIALIST us Keyshawn Clancy MD LABORATORY Final Resul t [facility] [address] [facility] [address] [place] [id number], * LIPID PANEL (11/15/2016 11:03 AM SECRETARY SPECIALIST) CHOLESTEROL 141 100 - 199 mg/dL TOUCHWORKS TO EPIC CONVERSION TRIGLYCERIDES 108 0 - 149 mg/dL TOUCHWORKS TO EPIC CONVERSION HDL 70 >39 mg/dL TOUCHWORKS TO EPIC CONVERSION VLDL CALCULATION 22 5 - 40 mg/dL TOUCHWORKS TO EPIC CONVERSION LDL (CALCULATED) 49 0 - 99 mg/dL TOUCHWORKS TO EPIC CONVERSION COMMENT TOUCHWORKS TO EPIC CONVERSION 11/15/2016 11:0 3 AM SECRETARY SPECIALIST 11/15/2016 11:03 AM SECRETARY SPECIALIST Narrative TOUCHWORKS TO EPIC CONVERSION - 11/16/2016 5:11 AM SECRETARY SPECIALIST Result Communication: Call patient with results us Keyshawn Clancy MD LABORATORY Final Resul t TOUCHWORKS TO EPIC CONVERSION from Last 3 Months or Most Recently Relevant to Health Maintenance Insurance MEDICARE [facility] Care Teams Grit Blaster Relationship Specialty Start Date End Date Keyshawn Clancy MD [address] [address] PCP - General 12/03/16
--- OUTSIDE RECORDS SUMMARY | 2025-05-03 11:30 | XMS_ITS | Clinical Summary ---
Author Organization [facility] Address [address] [place] [address] Care Team Providers Care Construction Lineman Name Role Phone Clare Núñez MD Unavailable [phone] Ranjit Pemberton MD Unavailable [phone] Brayden Zarco MD Unavailable [phone] Madhu De Leon DO Primary Care Provider [phone] Allergies Active Allergy Reactions Criticality Noted Date [...] 11/10/2021 Assessment & Plan (11/06/2022 10:57 AM CORPORATE AFFAIRS MANAGER): Blood pressure is well controlled. Continue current medications. Continue low- salt diet. Continue hydrochlorothiazide and losartan. Add Chem 7 to the yesterday's labs as she is on hydrochlorothiazide Abnormal chest x-ray 11/10/2021 Mixed hyperlipidemia 08/15/2021 Assessment & Plan (11/06/2022 10:56 AM CORPORATE AFFAIRS MANAGER): Recent lipid panel looks good along with LFTs. I reviewed with her. I will repeat her Chem 12 and lipids prior to next appointment. Continue heart healthy diet and also atorvastatin. 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 Continue [...] Trivalent, IM (MDV) 07/04/2015,2013,07/08/2013 Influenza, Unspecified 06/24/2024,06/26/2021,09/2017 [employer] ([employer]) SARS-CoV-2 Vaccination 12/02/2020 Pneumococcal Conjugate 7-Valent [...] on file Legal Sex Female 9:06 PM CORPORATE AFFAIRS MANAGER Gender Identity Not on file Sexual Orientation Not on file Obstetrics History Para Term AB IAB SAB Ectopic Multiple Livin g Live Births 2 2 2 Date Outcome GA Total Labor Labor/2nd/3rd Weight Sex Type Anes PTL Mary A1 A5 Name Clin Term Term Last Filed Vital Signs Vital Sign Reading Time Taken Comments Blood Pressure 110/60 11/27/2024 10:50 AM CORPORATE AFFAIRS MANAGER Pulse 71 11/27/2024 10:50 AM CORPORATE AFFAIRS MANAGER Temperature 36.3 C (97.3 F) 07/01/2024 10:19 AM CDT Respiratory Rate 20 07/01/2024 10:19 AM CDT Oxygen Saturation 98% 11/27/2024 10:50 AM CORPORATE AFFAIRS MANAGER Inhaled Oxygen Concentration - - Weight 44.5 kg (98 lb) 11/27/2024 10:50 AM CORPORATE AFFAIRS MANAGER Height 154.9 cm (5' 1) 11/27/2024 10:50 AM CORPORATE AFFAIRS MANAGER Body Mass Index 18.52 11/27/2024 10:50 AM CORPORATE AFFAIRS MANAGER Plan of Treatment Health Maintenance Due [...] Diagnosis Comments EGFR Routine 11/20/2024 10:44 AM CORPORATE AFFAIRS MANAGER Coronary artery disease involving kobuk coronary artery of kobuk heart without angina pectoris Essential hypertension, benign Mixed hyperlipidemia Hypercalcemia LIPID PANEL Routine 11/20/2024 10:44 AM CORPORATE AFFAIRS MANAGER Coronary artery disease involving kobuk coronary artery of kob[place] heart without angina pectoris Essential hypertension, benign Mixed hyperlipidemia Hypercalcemia HEMOGLOBIN A1C Routine 05/15/2022 2:05 PM CDT Malignant neoplasm of lower-outer quadrant of left breast of female, estrogen receptor positive (HCC) Diabetes mellitus without complication (HCC) from Last 3 Months or Most Recently Relevant to Health Maintenance Results * (ABNORMAL) eGFR (11/20/2024 10:44 AM CORPORATE AFFAIRS MANAGER) eGFR 50(L) >=60 mL/min/1. 73 m2 [...] reviewed 2021. Blood 11/20/2024 10:4 4 AM CORPORATE AFFAIRS MANAGER 11/20/2024 10:57 AM CORPORATE AFFAIRS MANAGER Emre Paz MD LAB BLOOD ORDERABLES Final Result [facility] [id number] [facility] Department [place] [address] * Lipid panel (11/20/2024 10:44 AM CORPORATE AFFAIRS MANAGER) Cholesterol 178 30 - 199 mg/dL [...] 2 [facility] Blood 11/20/2024 10:4 4 AM CORPORATE AFFAIRS MANAGER 11/20/2024 10:57 AM CORPORATE AFFAIRS MANAGER us Emre Paz MD LAB BLOOD ORDERABLES Final Result Performing Organization Address [facility] Co de Phone Number [phone] [facility] [place] [address] * (ABNORMAL) Hemoglobin A1c (05/15/2022 2:05 PM CDT) Hgb A1C 7.6(H) 4.0 - 5.6 % [facility] Estimated Average Glucose 171 mg/dL [facility] Comment: The ADA recommends reporting an estimated Average Glucose (eAG) with all Hemoglobin A1c results using the equation derived from a study of 507 normal and diabetic adults. Minority populations were underrepresented and children were not included. (Diabetes Care 31:0343-4866, 2008). The eAG is not equivalent to a fasting glucose. Blood 05/15/2022 2:05 PM CDT 05/15/2022 2:51 PM CDT Brayden Zarco MD LAB BLOOD ORDERABLES Final Re sult Performing Organization Address City/[facility]/ZIP Co de Phone Number [facility] [address] [facility] [place] [address] from Last 3 Months or Most Recently Relevant to Health Maintenance Insurance MEDICARE [facility] MEDICARE [facility] MEDICARE MEDICARE [facility] Care Teams Construction Lineman Relationship Specialty Start Date End Date Madhu De Leon DO [address] [place] [address] PCP - General Family Medicine 11/05/22 Clare Núñez MD Consulting Physician Radiation Oncology 06/16/18 Ranjit Pemberton MD [address] [place] [address] Otolaryngology 12/29/18 Brayden Zarco MD [address] [place] [address] Consulting Physician Hematology and Oncology 07/03/21
--- OUTSIDE RECORDS SUMMARY | 2025-05-03 11:30 | XMS_ITS | Encounter Summary ---
Author Organization [facility] Facility Care Team Providers Care Hvac Refrigeration Technician Name Role Phone Keyshawn Clancy MD Primary Care Provider + [phone] Clare Núñez MD Unavailable [phone] Ranjit Pemberton MD Unavailable [phone] Emre Paz MD Unavailable [phone] Brayden Zarco MD Unavailable [phone] Madhu De Leon DO Primary Care Provider [phone] Encounter Details Date Type Department Care Team (Latest Contact Info) Description 10/29/2018 Orders Only MMG CLINCONV Provider, MD Sandy [address] [place] [address] Social History Tobacco Use Types Packs/Day Years Used Date Smoking Tobacco: Never Smokeless Tobacco: Never Comments Unknown Sex and Gender Information Value Date Recorded Sex Assigned at Not on file Legal Sex Female 9:06 PM STATISTICAL PROGRAMMER Gender Identity Not on file Sexual Orientation Not on file documented as of this encounter Plan of Treatment Not on file documented as of this encounter Procedures Procedure Name Priority Date/Time Associated Diagnosis Comments SCAN - LABS 10/30/2018 12:00 AM STATISTICAL PROGRAMMER documented in this encounter Results * SCAN - LABS (10/30/2018 12:00 AM STATISTICAL PROGRAMMER) Narrative 10/30/2018 12:00 AM STATISTICAL PROGRAMMER Ordered by an unspecified provider. Historical Provider Final Res ult documented in this encounter Visit Diagnoses Not on filedocumented in this encounter Care Teams Hvac Refrigeration Technician Relationship Specialty Start Date End Date Keyshawn Clancy MD [address] [place] [address] PCP - General 12/31/16 11/04/22 Madhu De Leon DO [address] [facility] [address] [place] [address] [address] PCP - General Family Medicine 11/05/22 Clare Núñez MD [address] [place] [address] Consulting Physician Radiation Oncology 06/16/18 Ranjit Pemberton MD [address] [place] [address] Otolaryngology 12/29/18 Emre Paz MD [address] [facility] [address] [place] [address] [address] Bale Piler Cardiology 10/28/20 09/02/23 Brayden aZrco MD [address] [facility] [address] [place] [address] [address] Consulting Physician Hematology and Oncology 07/03/21 documented as of this encounter
--- OUTSIDE RECORDS SUMMARY | 2025-05-03 11:30 | XMS_ITS | Referral Summary ---
Author Organization [facility] Address [address] [place] [address] Care Team Providers Care Sports Book Writer Name Role Phone Clare Núñez MD Unavailable [phone] Ranjit Pemberton MD Unavailable Brayden Zarco MD Unavailable [phone] Madhu De Leon DO Primary Care Provider [phone] Allergies Active Allergy Reactions Criticality Noted Date [...] 11/10/2021 Assessment & Plan (11/06/2022 10:57 AM INDUSTRIAL MAINTENANCE MECHANIC): Blood pressure is well controlled. Continue current medications. Continue low- salt diet. Continue hydrochlorothiazide and losartan. Add Chem 7 to the yesterday's labs as she is on hydrochlorothiazide Abnormal chest x-ray 11/10/2021 Mixed hyperlipidemia 08/15/2021 Assessment & Plan (11/06/2022 10:56 AM INDUSTRIAL MAINTENANCE MECHANIC): Recent lipid panel looks good along with LFTs. I reviewed with her. I will repeat her Chem 12 and lipids prior to next appointment. Continue heart healthy diet and also atorvastatin. Shortness of breath 08/15/2021 Coronary artery disease invo lving port lions coronary artery of port lions heart without angina pectoris 05/05/2021 Assessment & Plan (11/06/2022 10:55 AM INDUSTRIAL MAINTENANCE MECHANIC): Clinically she has no angina. Continue aspirin. [...] Trivalent, IM (MDV) 07/04/2015,2013,07/08/2013 Influenza, Unspecified 06/24/2024,06/26/2021,09/2017 Autopilot (J&J) SARS-CoV-2 Vaccination 12/02/2020 Pneumococcal Conjugate 7-Valent [...] on file Legal Sex Female 9:06 PM INDUSTRIAL MAINTENANCE MECHANIC Gender Identity Not on file Sexual Orientation Not on file Last Filed Vital Signs Vital Sign Reading Time Taken Comments Blood Pressure 110/60 11/27/2024 10:50 AM INDUSTRIAL MAINTENANCE MECHANIC Pulse 71 11/27/2024 10:50 AM INDUSTRIAL MAINTENANCE MECHANIC Temperature 36.3 C (97.3 F) 07/01/2024 10:19 AM CDT Respiratory Rate 20 07/01/2024 10:19 AM CDT Oxygen Saturation 98% 11/27/2024 10:50 AM INDUSTRIAL MAINTENANCE MECHANIC Inhaled Oxygen Concentration - - Weight 44.5 kg (98 lb) 11/27/2024 10:50 AM INDUSTRIAL MAINTENANCE MECHANIC Height 154.9 cm (5' 1) 11/27/2024 10:50 AM INDUSTRIAL MAINTENANCE MECHANIC Body Mass Index 18.52 11/27/2024 10:50 AM INDUSTRIAL MAINTENANCE MECHANIC Plan of Treatment Not on file Procedures Procedure Name Priority Date/Time Associated Diagnosis Comments EGFR Routine 11/20/2024 10:44 AM INDUSTRIAL MAINTENANCE MECHANIC Coronary artery disease involving port lions coronary artery of port lions heart without angina pectoris Essential hypertension, benign Mixed hyperlipidemia Hypercalcemia LIPID PANEL Routine 11/20/2024 10:44 AM INDUSTRIAL MAINTENANCE MECHANIC Coronary artery disease involving port lions coronary artery of port lions heart without angina pectoris Essential hypertension, benign Mixed hyperlipidemia Hypercalcemia HEMOGLOBIN A1C Routine 05/15/2022 2:05 PM CDT Malignant neoplasm of lower-outer quadrant of left breast of female, estrogen receptor positive (HCC) Diabetes mellitus without complication (HCC) from Last 3 Months or Most Recently Relevant to Health Maintenance Results * (ABNORMAL) eGFR (11/20/2024 10:44 AM INDUSTRIAL MAINTENANCE MECHANIC) eGFR 50(L) >=60 mL/min/1. 73 m2 Comment: [...] reviewed 2021. Blood 11/20/2024 10:4 4 AM INDUSTRIAL MAINTENANCE MECHANIC 11/20/2024 10:57 AM INDUSTRIAL MAINTENANCE MECHANIC us Emre Paz MD LAB BLOOD ORDERABLES Final Result [facility] [id number] [facility] [place] [address] * Lipid panel (11/20/2024 10:44 AM INDUSTRIAL MAINTENANCE MECHANIC) Cholesterol 178 30 - 199 mg/dL Comment: [...] last revised on 2018. Chol/HDL ratio 2 [facility] Blood 11/20/2024 10:4 4 AM INDUSTRIAL MAINTENANCE MECHANIC 11/20/2024 10:57 AM INDUSTRIAL MAINTENANCE MECHANIC us Emre Paz MD LAB BLOOD ORDERABLES Final Result Performing Organization Address [facility] Co de Phone Number [id number] [facility] [place] [address] * (ABNORMAL) Hemoglobin A1c (05/15/2022 2:05 PM [...] and children were not included. (Diabetes Care [id number], 2008). The eAG is not equivalent to a fasting glucose. Blood 05/15/2022 2:05 PM CDT 05/15/2022 2:51 PM CDT Brayden Zarco MD LAB BLOOD ORDERABLES Final Re sult Performing Organization Address City/[facility]/ZIP Co de Phone Number [facility] [address] [facility] [place] [address] from Last 3 Months or Most Recently Relevant to Health Maintenance Insurance MEDICARE [facility] MEDICARE [facility] MEDICARE MEDICARE [facility] Care Teams Sports Book Writer Relationship Specialty Start Date End Date Madhu De Leon DO [address] [place] [address] PCP - General Family Medicine 11/05/22 Clare Núñez MD Consulting Physician Radiation Oncology 06/16/18 Ranjit Pemberton MD [address] [place] [address] Otolaryngology 12/29/18 Brayden Zarco MD [address] [place] [address] Consulting Physician Hematology and Oncology 07/03/21
[2025-05-03 15:29] LABS: Alanine Aminotransferase 16 U/L (6-35); Albumin Level 4.1 g/dL (3.5-5.1); Alkaline Phosphatase 51 U/L (38-126); Anion Gap 3 mmol/L (4-12); Aspartate Amino Transferase 46 U/L (14-36); Bilirubin,Total 0.4 mg/dL (0.2-1.3); Blood Urea Nitrogen 22 mg/dL (7-17); Calcium 10.3 mg/dL (8.4-10.2); Carbon Dioxide 34 mmol/L (22-30); Chloride 96 mmol/L (98-107); Estimated Glomerular Filt Rate 58; Glucose 166 mg/dL (65-110); Potassium 4.5 mmol/L (3.4-5.0); Sodium 133 mmol/L (137-145); Total Protein 7.2 g/dL (6.3-8.2)
== END 2025-05-03 11:01 | disposition home or self-care (01) ==
LOC: ANHGOSHLAB 11:01
PROVIDERS: PCP Internal Medicine; Visit Provider Internal Medicine
DX: E11.9 Type 2 diabetes mellitus without complications (principal); I10 Essential (primary) hypertension
CPT/HCPCS: 36415; 80053

== ENCOUNTER 2025-05-11 13:00 | Outpatient (RCR) | payer MEDICARE, BC, SELFPAY ==
[2025-03-23 10:51] VITALS: BMI 17.6
[2025-03-23 14:09] VITALS: BMI 17.6
[2025-05-11 13:44] VITALS: BMI 17.6
== END 2025-06-07 12:12 | disposition home or self-care (01) ==
LOC: ANHDMC 13:00
PROVIDERS: PCP Family Medicine; Visit Provider Internal Medicine
DX: E11.65 Type 2 diabetes mellitus with hyperglycemia (principal); Z71.9 Counseling, unspecified; I10 Essential (primary) hypertension; R63.4 Abnormal weight loss; R63.6 Underweight; E78.5 Hyperlipidemia, unspecified
CPT/HCPCS: 97802; 97803; G0108

== ENCOUNTER 2025-08-24 13:00 | Outpatient (RCR) | payer MEDICARE, BC, SELFPAY | END 2025-08-24 17:13 | disposition home or self-care (01) | LOC: ANHDMC 13:00 | PROVIDERS: PCP Family Medicine; Visit Provider Internal Medicine | DX: E11.65 Type 2 diabetes mellitus with hyperglycemia (principal); E78.5 Hyperlipidemia, unspecified; I10 Essential (primary) hypertension; R63.4 Abnormal weight loss; Z71.89 Other specified counseling | CPT/HCPCS: G0108 ==

== ENCOUNTER 2025-09-18 10:54 | Emergency (ER) | payer MEDICARE, BC, SELFPAY ==
--- NOTE | ~2025-09-18 | CT_ITS ---
EXAMINATION: CT abdomen pelvis w con DATE: 09/18/2025 16:53 INDICATION: Abdominal pain. TECHNIQUE: Computed tomography (CT) of the abdomen and pelvis was performed without intravenous contrast. Automated exposure control and iterative reconstruction technique were employed. The dose-length product was 190.28 mGy-cm. COMPARISON: None. FINDINGS: Lung bases do not show acute findings. Chronic fibrotic changes of the right perihilar region. No focal lesions of liver and spleen. Gallbladder shows calcified gallstone. No evidence of edema gallbladder wall. Fecal impaction of proximal colon. The appendix is not distinctly visible. Severe fecal impaction of the rectum. No free fluid in the pelvis. Severe atherosclerotic changes of abdominal aorta with severe calcific atherosclerotic stenosis at the origin of superior mesenteric artery. Moderate stenosis of proximal right renal artery. IMPRESSION: 1. Mildly distended gallbladder containing calcified gallstone. No edema gallbladder wall. 2. Fecal impaction of proximal colon and severe fecal impaction of the rectum. 3. 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 Reviewed, dictated and finalized at location T. NOL QUALITY LEADER IMPRESSION: 1. Mildly distended gallbladder containing calcified gallstone. No edema gallbl adder wall. 2. Fecal impaction of proximal colon and severe fecal impaction of the rectum. 3. Severe calcific atherosclerotic stenosis at the origin of superior mesenteri c artery likely to be high-grade obstruction.
[2025-09-18 11:20] VITALS: BP 175/96; PULSE 90; RESP 18; TEMP 36.7; O2SAT 97
--- NOTE | 2025-09-18 13:14 | ED.GENADULT ---
HPI - General Adult General Chief complaint: GI Bleed Stated complaint: black stool Time Seen by Provider: 09/18/25 13:10 Source: patient Mode of arrival: ambulatory Limitations: no limitations History of Present Illness HPI narrative: 89 YEARS OLD WHITE FEMALE CAME FROM HOME BY PRIVATE CAR COMPLAINING OF BLACK STOOL FOR A MONTH, ALSO INTERMITTENT CONSTIPATION, SHE DENIES ANY FEVER OR CHILLS OR NAUSEA OR VOMITING. PATIENT REPORT RECTAL PAIN WHEN SHE TRIED TO PUSH TO HAVE A BOWEL MOVEMENT. Related Data Home Medications ?Medication ?Instructions ?Recorded ?Confirmed ?Last Taken ?Type mecobalamin (vitamin B12) 1,000 1,000 mcg PO DAILY 04/19/22 07/27/25 Unknown History mcg chewable tablet metoprolol succinate 100 mg 100 mg PO DAILY 04/19/22 07/27/25 Unknown History tablet,extended release 24 hr losartan 100 mg tablet mg PO 04/28/25 07/27/25 Unknown History hydrochlorothiazide 25 mg tablet 25 mg PO DAILY 06/11/25 07/27/25 Unknown History Allergies Allergy/AdvReac Type Severity Reaction Status Date / Time Latex, Natural Rubber Allergy Mild Redness of Verified 09/18/25 13:09 Skin Penicillins Allergy Unknown Verified 09/18/25 13:09 Review of Systems Review of Systems: All systems reviewed & are unremarkable except as noted in HPI and below PMFSH Past Medical History Medical History Hypokalemia Hyperlipemia Coronary artery disease Chronic hyponatremia Thyroid nodule Breast cancer Type 2 diabetes mellitus without complications Hypertension Anxiety Surgical History Surgical History History of coronary artery stent placement History of cataract extraction with lens replacement History of lumpectomy of left breast History of total mastectomy of right breast Family History Family History Mother Diabetes mellitus Social History Social History Social History: 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 Humera Gotti ([phone]). Code status: Full code. Smoking status: Never smoker Alcohol intake: never Substance use: never Substance use type: does not use Lack of Transportation: No Lack of Food: Never True Current Housing: I Have Housing Concerned About Future Housing: No Difficulty Paying Gas/Electric Bills: No Difficulty Paying for Meds: No Currently Unemployed: No Education: Master's Degree or Higher Difficulty w/ Childcare or Family Care: No Additional living arrangements comments: The patient lives in her own home in [place]. Occupation/Education: retired Spiritual care concerns: No Exam Narrative: GENERAL APPEARANCE: WELL-DEVELOPED, WELL-NOURISHED SKIN: NORMAL COLOR HEAD: NORMOCEPHALIC, NONTRAUMATIC EYES: CLEAR CONJUNCTIVA ENT: OROPHARYNX NORMAL, EARS NORMAL, NOSE NORMAL NECK: SUPPLE, NONTENDER CHEST AND RESPIRATORY: AIRWAY PATENT, NO RESPIRATORY DISTRESS, NO ACCESSORY MUSCLE USE HEART: REGULAR RATE/RHYTHM ABDOMEN: SOFT, NONTENDER, NO ORGANOMEGALY, QUIET BOWEL SOUNDS RECTAL POUCH EMPTY, NEGATIVE GUAIAC STOOL MUSCULOSKELETAL: NORMAL RANGE OF MOTION, NONTENDER BACK NEUROLOGIC: ALERT AND ORIENTED ?3, JAVA LEAD DEVELOPER IS NORMAL TESTED, NO GROSS MOTOR DEFICIT Course Consultations Gastroenterology: Time of Consult: 17:12 I have discussed the care of this patient with the following provider: DR. BRAR, SMA STENOSILIKELY CHRONIC, FLEET ENEMA, OUTPATIENT FOLLOW-UP Vital Signs Vital signs: Vital Signs Temperature 36.7 C 09/18/25 11:20 Pulse Rate 90 09/18/25 11:20 Respiratory Rate 18 09/18/25 11:20 Blood Pressure 175/96 H 09/18/25 11:20 Pulse Oximetry 97 09/18/25 11:20 Oxygen Delivery Room Air 09/18/25 11:20 Temperature 36.7 C 09/18/25 11:20 Pulse Rate 88 09/18/25 18:57 Respiratory Rate 13 09/18/25 18:57 Blood Pressure 165/72 H 09/18/25 18:57 Pulse Oximetry 96 09/18/25 18:57 Oxygen Delivery Room Air 09/18/25 11:20 [facility] MDM Narrative Medical decision making narrative: PATIENT CAME BY PRIVATE CAR FROM HOME WITH BLACK STOOL FOR A WHILE AND INTERMITTENT CONSTIPATION VITAL SIGNS SHOWING BLOOD PRESSURE 175/96 OTHERWISE WITHIN NORMAL LIMIT PHYSICAL EXAMINATION SHOWING EMPTY RECTAL POUCH, GUAIAC NEGATIVE, DISTENDED ABDOMEN OTHERWISE UNREMARKABLE DIFFERENTIAL DIAGNOSIS INCLUDED GI BLEED, CONSTIPATION, COLITIS, DIVERTICULITIS, ISCHEMIC COLITIS, URINARY TRACT INFECTION BLOOD WORKUP TODAY INCLUDES CBC, CMP, LIPASE AND LACTIC ACID SHOWED LIPASE 322 OTHERWISE INSIGNIFICANT ABNORMALITY 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 DISCUSSED WITH DR. MAYKEL PENAS ENEMA, SMALL AMOUNT OF STOOL, PATIENT FEELS MORE COMFORTABLE DISCHARGED ON MIRALAX THE PT WAS DISCHARGED TO HOME.THE PT,S CONDITION UPON DISCHARGE WAS FAIR,EDUCATION WAS PROVIDED TO THE PT IN REFERENCE TO THE FINAL IMPRESSION,DISCHARGE STUDY RESULTS,TREATMENT,PROGNOSIS AND NEED FOR FOLLOW UP . Differential Diagnosis Differential Diagnosis: ABOVE Medical Records I have reviewed the following patient records and this information was taken into consideration when formulating the assessment and plan.: previous labs, previous ER visits, previous hospitalizations and previous clinic visits Lab Data MDM Lab Attestation statement: I personally reviewed the patient's lab results. 09/18/25 13:55 09/18/25 13:55 Labs: Lab Results 09/18/25 09/18/25 09/18/25 Range/Units 13:54 13:55 15:27 WBC 6.0 (4.5-10.0) K/mm3 RBC 4.42 (4.2-5.4) M/mm3 Hgb 13.0 (12.0-15.0) g/dL Hct 39.9 (37.0-47.0) % MCV 90.3 (80-100) fl MCH 29.4 (26-34) pg MCHC 32.6 (32-36) g/dl RDW 15.1 H (11.5-14.5) % Plt Count 169 (150-375) k/mm3 MPV 11.4 H (7.4-10.4) fl Immature Gran % (Auto) 0.3 (0-0.5) % Neut % (Auto) 72.3 (45.5-73.1) % Lymph % (Auto) 16.0 L (18.3-44.2) % Dickson % (Auto) 10.2 H (2.6-8.5) % Eos % (Auto) 0.7 (0-4.4) % Baso % (Auto) 0.5 (0.2-1.2) % Lymph # (Auto) 0.96 (0.9-3.2) K/mm3 Dickson # (Auto) 0.6 (0.1-0.6) K/mm3 Eos # (Auto) 0.0 (0-0.3) K/mm3 Baso # (Auto) 0.0 (0.0-0.1) K/mm3 Abs Immat Gran (auto) 0.02 (0.00-0.031) K/mm3 Absolute Neuts (auto) 4.3 (1.3-6.7) K/mm3 Absolute Nucleated RBC 0.000 (0.0-0.012) K/mm3 Nucleated RBC % 0.0 (0.0-0.2) % PT 13.4 (11.1-14.7) Seconds INR 1.0 APTT 22.8 (22.3-36.8) Seconds Sodium 135 L (137-145) mmol/L Potassium 4.0 (3.4-5.0) mmol/L Chloride 96 L (98-107) mmol/L Carbon Dioxide 35 H (22-30) mmol/L Anion Gap 4 (4-12) mmol/L BUN 37 H D (7-17) mg/dL Creatinine 1.00 (0.7-1.0) mg/dL Estim Creat Clear Calc 22 ml/min Estimated GFR 52 L (59 - ) Glucose 162 H (65-110) mg/dL Lactic Acid (0.7-2.0) mmol/L Calcium 10.6 H (8.4-10.2) mg/dL Total Bilirubin 0.5 (0.2-1.3) mg/dL AST 30 (14-36) U/L ALT 17 (6-35) U/L Alkaline Phosphatase 64 (38-126) U/L Total Protein 7.1 (6.3-8.2) g/dL Albumin 4.1 (3.5-5.1) g/dL Lipase 322 H (23-300) U/L Urine Color Yellow (Yellow) Urine Appearance Clear (Clear) Urine pH 7.5 (5.0-9.0) Ur Specific [place] 1.012 (1.001-1.035) Urine Protein Trace (Negative) mg/dL Urine Glucose (UA) Negative (Negative) mg/dL Urine Ketones Negative (Negative) mg/dL Ur Blood (Man) Negative (Negative) Urine Nitrate Negative (Negative) Urine Bilirubin Negative (Negative) Urine Urobilinogen 0.2 (<2.0) mg/dL Leukocyte Esterase Rfl Negative (Negative) VISHAL/UL Urine RBC 3-5 H (0-2) /hpf Urine WBC 0-5 (0-3) /hpf Ur Squamous Epith Cells None seen (Few) /hpf Urine Bacteria None seen /hpf Urine Casts 0-2 12/20/ Range/Units 16:26 WBC (4.5-10.0) K/mm3 RBC (4.2-5.4) M/mm3 Hgb (12.0-15.0) g/dL Hct (37.0-47.0) % MCV (80-100) fl MCH (26-34) pg MCHC (32-36) g/dl RDW (11.5-14.5) % Plt Count (150-375) k/mm3 MPV (7.4-10.4) fl Immature Gran % (Auto) (0-0.5) % Neut % (Auto) (45.5-73.1) % Lymph % (Auto) (18.3-44.2) % Dickson % (Auto) (2.6-8.5) % Eos % (Auto) (0-4.4) % Baso % (Auto) (0.2-1.2) % Lymph # (Auto) (0.9-3.2) K/mm3 Dickson # (Auto) (0.1-0.6) K/mm3 Eos # (Auto) (0-0.3) K/mm3 Baso # (Auto) (0.0-0.1) K/mm3 Abs Immat Gran (auto) (0.00-0.031) K/mm3 Absolute Neuts (auto) (1.3-6.7) K/mm3 Absolute Nucleated RBC (0.0-0.012) K/mm3 Nucleated RBC % (0.0-0.2) % PT (11.1-14.7) Seconds INR APTT (22.3-36.8) Seconds Sodium (137-145) mmol/L Potassium (3.4-5.0) mmol/L Chloride (98-107) mmol/L Carbon Dioxide (22-30) mmol/L Anion Gap (4-12) mmol/L BUN (7-17) mg/dL Creatinine (0.7-1.0) mg/dL Estim Creat Clear Calc ml/min Estimated GFR (59 - ) Glucose (65-110) mg/dL Lactic Acid 1.2 (0.7-2.0) mmol/L Calcium (8.4-10.2) mg/dL Total Bilirubin (0.2-1.3) mg/dL AST (14-36) U/L ALT (6-35) U/L Alkaline Phosphatase (38-126) U/L Total Protein (6.3-8.2) g/dL Albumin (3.5-5.1) g/dL Lipase (23-300) U/L Urine Color (Yellow) Urine Appearance (Clear) Urine pH (5.0-9.0) Ur Specific [place] (1.001-1.035) Urine Protein (Negative) mg/dL Urine Glucose (UA) (Negative) mg/dL Urine Ketones (Negative) mg/dL Ur Blood (Man) (Negative) Urine Nitrate (Negative) Urine Bilirubin (Negative) Urine Urobilinogen (<2.0) mg/dL Leukocyte Esterase Rfl (Negative) VISHAL/UL Urine RBC (0-2) /hpf Urine WBC (0-3) /hpf Ur Squamous Epith Cells (Few) /hpf Urine Bacteria /hpf Urine Casts Imaging Data Radiologist's impression: ITS Impressions Abdomen/Pelvis CT 09/18/25 16:54 IMPRESSION: 1. Mildly distended gallbladder containing calcified gallstone. No edema gallbladder wall. 2. Fecal impaction of proximal colon and severe fecal impaction of the rectum. 3. 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 Critical Care Time Critical Care Time Critical Care Time: No Discharge Plan Discharge Clinical Impression: Constipation, Superior mesenteric artery stenosis Patient Disposition: Home Condition: Improved Instructions: Constipation (ED) Additional Instructions: RETURN IF SYMPTOMS ARE WORSENING , CALL YOUR FAMILY PHYSICIAN FOR APPOINTMENT, TAKE TYLENOL NEEDED FOR ACHES AND PAIN, CONTINUE HOME MEDICATIONS. [id number] MIRALAX 1 PACK EVERY 2 HOURS UP TO 5 TIMES A DAY Patient Language: Polish Prescriptions: No Action metoprolol succinate 100 mg tablet extended release 24 hr 100 mg PO DAILY mecobalamin (vitamin B12) 1,000 mcg tablet,chewable 1,000 mcg PO DAILY hydrochlorothiazide 25 mg tablet 25 mg PO DAILY Januvia 25 mg tablet See Rx Instructions .ROUTE .COMPLEX Qty: 90 1RF Dose Instruction: TAKE 1 TABLET BY MOUTH EVERY DAY Rx Instructions: TAKE 1 TABLET BY MOUTH EVERY DAY albuterol sulfate [Ventolin HFA] 90 mcg/actuation HFA aerosol inhaler 2 inh inhalation Q4H PRN (Reason: shortness of breath or wheezing) Qty: 8.5 5RF losartan 100 mg tablet PO atorvastatin 20 mg tablet 20 mg PO DAILY Qty: 90 1RF magnesium 200 mg tablet 200 mg PO DAILY Qty: 90 1RF cholecalciferol (vitamin D3) 25 mcg (1,000 unit) capsule 25 mcg PO DAILY Qty: 90 0RF aspirin 81 mg capsule 81 mg PO DAILY Qty: 90 1RF (DME) blood-glucose meter [OneTouch Verio Flex Start] Kit See Rx Instructions .Route Qty: 1 0RF Rx Instructions: Use to check blood sugar daily (DME) OneTouch Verio test strips Strip See Rx Instructions .Route Qty: 100 5RF Rx Instructions: Use to test blood sugar daily (DME) Easy Touch Lancets 32 gauge misc See Rx Instructions .Route Qty: 100 5RF Rx Instructions: Use to test blood sugar daily metformin 500 mg tablet See Rx Instructions .ROUTE .COMPLEX Qty: 90 0RF Dose Instruction: TAKE 1 TABLET BY MOUTH EVERY DAY Rx Instructions: TAKE 1 TABLET BY MOUTH EVERY DAY Follow-up/Referrals: Caryn Pollack DO [Primary Care Provider, Family Practice]
[2025-09-18 14:00] LABS: Hematocrit 39.9 % (37.0-47.0); Hemoglobin 13.0 g/dL (12.0-15.0); Immature Granulocyte Percent A 0.3 % (0-0.5); Lymphocytes Absolute Auto 0.96 K/mm3 (0.9-3.2); Mean Corpuscular HGB Conc 32.6 g/dl (32-36); Mean Corpuscular Hemoglobin 29.4 pg (26-34); Mean Corpuscular Volume 90.3 fl (80-100); Nucleated Red Blood Cells Absolute Auto 0.000 K/mm3 (0.0-0.012); Nucleated Red Blood Cells Perc 0.0 % (0.0-0.2); Platelet Count Result 169 k/mm3 (150-375); Red Blood Count 4.42 M/mm3 (4.2-5.4); White Blood Count 6.0 K/mm3 (4.5-10.0)
[2025-09-18 14:11] LABS: INR 1.0; Prothrombin Time 13.4 Seconds (11.1-14.7)
[2025-09-18 14:12] LABS: Partial Thromboplastin Time 22.8 Seconds (22.3-36.8)
[2025-09-18] MEDS: SODIUM CHLORIDE 0.9% IV 1,000 ML 150 ML IV CONT (14:18)
[2025-09-18 14:20] LABS: Alanine Aminotransferase 17 U/L (6-35); Albumin Level 4.1 g/dL (3.5-5.1); Alkaline Phosphatase 64 U/L (38-126); Anion Gap 4 mmol/L (4-12); Aspartate Amino Transferase 30 U/L (14-36); Bilirubin,Total 0.5 mg/dL (0.2-1.3); Blood Urea Nitrogen 37 mg/dL (7-17); Calcium 10.6 mg/dL (8.4-10.2); Carbon Dioxide 35 mmol/L (22-30); Chloride 96 mmol/L (98-107); Estimated CRCL calculation 22 ml/min; Estimated Glomerular Filt Rate 52; Glucose 162 mg/dL (65-110); Lipase 322 U/L (23-300); Potassium 4.0 mmol/L (3.4-5.0); Sodium 135 mmol/L (137-145); Total Protein 7.1 g/dL (6.3-8.2)
[2025-09-18 15:36] LABS: Add Urine Microscopic? YES; Appearance Urine Clear (Clear); Glucose Urine UA Negative (Negative); Leukocyte Esterase Ur Negative LEU/UL (Negative); Nitrate Urine Negative (Negative); Non Pathogenic Casts 0-2; Specific Grav Ur 1.012 (1.001-1.035)
[2025-09-18 15:45] VITALS: BP 179/76; PULSE 86; RESP 18; O2SAT 96
[2025-09-18 18:57] VITALS: BP 165/72; PULSE 88; RESP 13; O2SAT 96
== END 2025-09-18 20:40 | disposition home or self-care (01) ==
PROVIDERS: Emergency Provider Emergency Medicine; PCP Family Medicine
DX: K55.1 Chronic vascular disorders of intestine (principal); K59.00 Constipation, unspecified; I25.10 Atherosclerotic heart disease of native coronary artery without angina pectoris; I10 Essential (primary) hypertension; E78.5 Hyperlipidemia, unspecified; E11.9 Type 2 diabetes mellitus without complications; E87.1 Hypo-osmolality and hyponatremia; F41.9 Anxiety disorder, unspecified; Z95.5 Presence of coronary angioplasty implant and graft; Z85.3 Personal history of malignant neoplasm of breast; Z96.1 Presence of intraocular lens; Z98.49 Cataract extraction status, unspecified eye; Z90.11 Acquired absence of right breast and nipple; Z79.84 Long term (current) use of oral hypoglycemic drugs; Z79.899 Other long term (current) drug therapy; Z79.82 Long term (current) use of aspirin
CPT/HCPCS: 36415; 74177; 80053; 81001; 83605; 83690; 85025; 85610; 85730; 96360; 96361; 99284; J7030; Q9967